=== PATIENT | female | born 1930 | race Hispanic/Latino ===

== ENCOUNTER 2017-11-16 11:48 | Emergency (ER) | payer MEDICARE, OTHER ==
--- NOTE | 2017-11-16 14:07 | CT ---
CT BRAIN: Date: 11/16/17 PROVIDED CLINICAL HISTORY: Head pain status post injury. FINDINGS: Comparison with 12/17/14. The ventricular system appears within normal limits for patient's age. There is no evidence for intra cranial hemorrhage. There is no shift of the midline structures. Minimal chronic microvascular ischem ic changes are seen. The extracranial soft tissues and osseous structures demonstrate no acute abnorm ality. IMPRESSION: No evidence for intracranial hemorrhage or skull fracture. POS: [facility]
--- NOTE | 2017-11-16 14:21 | CT ---
CT CERVICAL SPINE: Date: 11/16/17 PROVIDED CLINICAL HISTORY: Neck pain status post injury. FINDINGS: No evidence for fracture or traumatic subluxation. Degenerative changes are seen. No prevertebral sof t tissue swelling apparent. Visualized lung apices appear clear. IMPRESSION: No evidence for fracture or traumatic subluxation. POS: [facility]
[2017-11-16] MEDS ORDERED: Cyclobenzaprine 10 MG TAB ONE (14:24)
--- NOTE | 2017-11-16 14:28 | CT ---
CT THORACIC SPINE: Date: 11/16/17 PROVIDED CLINICAL HISTORY: Back pain status post injury. FINDINGS: Thoracic alignment appears normal. There are age-indeterminate but remote-appearing fractures involvi ng the superior end plate of T7 and T8, as well as the inferior end plate of T10. No definite prevert ebral soft tissue swelling suggests these represent acute injuries. The bony spinal canal appears pre served. Multilevel degenerative changes are seen involving the thoracic spine. IMPRESSION: Age-indeterminate, but probably remote, compression deformities involving several thoracic vertebral bodies as above. POS: [facility]
--- NOTE | 2017-11-16 14:30 | CT ---
CT LUMBAR SPINE: Date: 11/16/17 PROVIDED CLINICAL HISTORY: Back pain status post injury. FINDINGS: Lumbar alignment appears normal. There is remote-appearing superior end plate compression deformity i nvolving L4 and to a lesser extent L2. Lumbar spine degenerative changes are seen. Vascular calcifica tions are seen. No lytic or blastic lesions are identified. IMPRESSION: Remote-appearing superior end plate compression deformities at L4 and L2. POS: [facility]
== END 2017-11-16 14:34 | disposition home or self-care (01) ==
LOC: ERS 11:48
DX: S16.1XXA Strain of muscle, fascia and tendon at neck level, initial encounter (principal); M54.5 Low back pain; I10 Essential (primary) hypertension; E78.00 Pure hypercholesterolemia, unspecified; Z79.82 Long term (current) use of aspirin; Z79.899 Other long term (current) drug therapy; W19.XXXA Unspecified fall, initial encounter; Y93.41 Activity, dancing
CPT/HCPCS: 70450; 72125; 72128; 72131

== ENCOUNTER 2017-11-17 12:19 | Emergency (ER) | payer MEDICARE, OTHER ==
--- NOTE | 2017-11-17 13:49 | CT ---
NONCONTRAST CT ABDOMEN AND PELVIS: 11/17/2017 HISTORY: Left hip pain after fall while dancing. Pain is now worse. COMPARISON: 08/09/2015 FINDINGS: There is tiny pericardial effusion versus pericardial thickening present. There are increased linear and interstitial densities present at the left lung base, which could be r elated to atelectasis and/or scarring. There is minimal patchy density at the left lung base, which could be related to a focal area of pneumonitis or atelectasis. Vascular calcifications are seen in the visualized coronary arteries, as well as involving the abdomi nal aorta and iliac arteries. Post cholecystectomy changes are noted. A calcified granuloma is seen in the liver. There is minimal peripheral calcification seen along the splenic capsule, at the lateral body of the uterus. This was also present on the prior exam. There is mild thickening of each adrenal gland, similar to the prior exam. No discrete measurable no dule is present. There is a subcentimeter, qvx-[id number]-pd-characterize hypodense lesion in the mid portion right kidney with a subcentimeter increased density lesion at the inferior pole left kidney, which may represent a Bosniak type 2 cystic renal lesion. No renal or ureteral calculi are seen bilaterally, and there is no hydronephrosis. A small hiatal hernia is present. There is colonic diverticulosis. No other interval change when compared to the prior exam. There is a remote fracture deformity involving the right pubic bone and right inferior pubic ramus. The urinary bladder and uterus demonstrate a grossly normal nonenhanced CT appearance. IMPRESSION: 1. Chronic bibasilar lung changes with a patchy area of atelectasis versus pneumonitis at the left l luli base. 2. Small hiatal hernia. 3. Tiny pericardial effusion. 4. Bosniak type 2 renal cystic lesion, inferior pole, left kidney, with a subcentimeter, too-small-t o-characterize hypodense lesion in the right kidney. 5. Post cholecystectomy changes. 6. Colonic diverticulosis. 7. Remote fracture deformity involving the right pubic bone and inferior pubic ramus. 8. Mild compression fractures along the superior endplate of the L2 and L4 vertebral bodies, better visualized on CT lumbar spine on 11/16/2017. POS: [facility]
[2017-11-17 14:11] LABS: Bilirubin Negative (Negative); Blood, Urine Large (Negative); Clarity CLOUDY (Clear); Glucose, Urine (Dipstick) Negative (Negative); Leukocyte Moderate (Negative); Nitrite Negative (Negative); Protein, Urine (Dipstick) Trace mg/dL (Neg-Trace); Specific Gravity, Urine 1.016 (1.002-1.036); Urobilinogen 0.2 mg/dL (0.2-1.0)
[2017-11-17 14:15] LABS: Bacteria/HPF 4+ HPF (None Seen); Hyaline Casts/LPF 0-3 HYALINE CAST LPF (0-3 Hyaline); Pathc Cast-AUWi Flag 0.43 (0-2.49); RBC/HPF 21-50 HPF (0-3); Squamous Epithelial 0-3 HPF (0-3); WBC/HPF 21-50 HPF (0-3)
[2017-11-17 14:20] LABS: #Eosinphils 0.1 thou/uL (0.0-0.7); #Lymphocytes 1.3 thou/uL (1.20-3.40); #Monocytes 0.7 thou/uL (0.11-0.59); #Neutrophils 8.5 thou/uL (1.40-6.50); %Basophils 0.3 % (0.0-1.0); %Eosinophils 0.7 % (0.0-10.0); %Lymphocytes 12.6 % (21.0-51.0); %Monocytes 6.9 % (0.0-10.0); %Neutrophils 79.5 % (42.0-75.0); Hemoglobin 12.1 g/dL (12.0-16.0); Mean Corpuscular HGB CONC 33.6 g/dL (32.0-36.0); Mean Corpuscular Hemoglobin 33.4 pg (27.0-31.0); Mean Corpuscular Volume 99.3 fl (81.0-99.0); Mean Platelet Volume 7.4 fL (7.4-10.4); Platelet Count 240 thou/uL (130-400); Red Blood Cell (RBC) Count 3.61 mill/uL (4.20-5.40); White Blood Cell (WBC) Count 10.6 thou/uL (4.8-10.8)
[2017-11-17 14:40] LABS: ALT (SGPT) 15 U/L (8-55); AST (SGOT) 18 U/L (5-34); Albumin 4.1 g/dL (3.4-4.8); Alkaline Phosphatase 62 U/L (40-150); Anion Gap 6 mmol/L (10-20); BUN (Urea Nitrogen) 10 mg/dL (9.8-20.1); Bilirubin, Total 0.8 mg/dL (0.2-1.2); Calc. Creatinine Clearance 0 mL/min (70-130); Calcium 11.5 mg/dL (7.8-10.44); Carbon Dioxide 29 mmol/L (23-31); Chloride 108 mmol/L (98-107); Estimated GFR-MDRD 79; Globulin 2.9 g/dL (2.4-3.5); Glucose 93 mg/dL (83-110); Lipase 7 U/L (8-78); Potassium 3.3 mmol/L (3.5-5.1); Sodium 140 mmol/L (136-145)
[2017-11-17 14:46] LABS: CKMB 0.6 ng/mL (0-6.6); Troponin I Less than 0.010 ng/mL (< 0.028)
--- NOTE | 2017-11-17 14:57 | RAD ---
AP PELVIS: Date: 11/17/17 HISTORY: Fall, left-sided hip pain. FINDINGS/IMPRESSION: Comparison made with exam of 02/10/17. Fractures of the right-sided pubic bone are again seen. There is a new fracture involving the left pu bic bone in the parasymphyseal region with extension into the medial aspect of the superior pubic elton us. POS: [facility]
[2017-11-17] MEDS ORDERED: cefTRIAXone\\ROCEPHIN 2 GM in Sodium Chloride 0.9% 100 ML IVPB SCH (15:15)
[2017-11-17] MEDS ORDERED: Ketorolac Tromethamine 30 MG/ML VIAL ONE (15:20)
[2017-11-17] MEDS ORDERED: Acetaminophen 500 MG TAB ONE (15:20)
--- NOTE | 2017-11-29 22:58 | EKG ---
Test Reason : Blood Pressure : / mmHG Vent. Rate : 073 BPM Atrial Rate : 073 BPM P-R Int : 140 ms QRS Dur : 086 ms QT Int : 394 ms P-R-T Axes : 080 013 058 degrees QTc Int : 434 ms Normal sinus rhythm Nonspecific T wave abnormality Abnormal ECG Confirmed by MARITA KO, MARCIANO ([id number]), newspaper or periodical editor VALERI HUSSEIN ([id number]) on 11/29/2017 10:57:59 PM Referred By: Confirmed By:MARCIANO KIRKLAND MD
== END 2017-11-17 23:12 ==
LOC: ERS 12:19
DX: S32.512A Fracture of superior rim of left pubis, initial encounter for closed fracture (principal); I10 Essential (primary) hypertension; E78.00 Pure hypercholesterolemia, unspecified; Z79.82 Long term (current) use of aspirin; Z79.899 Other long term (current) drug therapy; W19.XXXA Unspecified fall, initial encounter; Y93.41 Activity, dancing
CPT/HCPCS: 36415; 72170; 74176; 80053; 81003; 81015; 82553; 83605; 83690; 84484; 85025; 93005; 96365; 96366; 96375; J0696; J1885; J7050

== ENCOUNTER 2018-02-02 13:15 | Emergency (ER) | payer MEDICARE, OTHER ==
[2018-02-02 14:28] LABS: #Basophils 0.1 thou/uL (0.0-0.2); #Lymphocytes 1.2 thou/uL (1.20-3.40); #Monocytes 0.4 thou/uL (0.11-0.59); %Basophils 0.6 % (0.0-1.0); %Eosinophils 0.4 % (0.0-10.0); %Lymphocytes 12.1 % (21.0-51.0); %Monocytes 4.5 % (0.0-10.0); %Neutrophils 82.4 % (42.0-75.0); Hemoglobin 12.9 g/dL (12.0-16.0); Mean Corpuscular Volume 97.1 fl (81.0-99.0); Mean Platelet Volume 7.5 fL (7.4-10.4); Platelet Count 301 thou/uL (130-400); RBC Distribution Width 11.5 % (11.5-14.5); Red Blood Cell (RBC) Count 3.92 mill/uL (4.20-5.40); White Blood Cell (WBC) Count 9.7 thou/uL (4.8-10.8)
[2018-02-02 14:31] LABS: Bilirubin Negative (Negative); Blood, Urine Large (Negative); Clarity CLOUDY (Clear); Glucose, Urine (Dipstick) Negative (Negative); Leukocyte Moderate (Negative); Nitrite Negative (Negative); Protein, Urine (Dipstick) 30 mg/dL (Neg-Trace); Specific Gravity, Urine 1.013 (1.002-1.036); Urobilinogen 0.2 mg/dL (0.2-1.0)
[2018-02-02 14:41] LABS: Bacteria/HPF 4+ HPF (None Seen); Hyaline Casts/LPF 7-10 HYALINE CAST LPF (0-3 Hyaline); Pathc Cast-AUWi Flag 0.87 (0-2.49); Squamous Epithelial 0-3 HPF (0-3); WBC/HPF 21-50 HPF (0-3)
[2018-02-02 14:49] LABS: ALT (SGPT) 17 U/L (8-55); AST (SGOT) 18 U/L (5-34); Albumin 4.6 g/dL (3.4-4.8); Alkaline Phosphatase 93 U/L (40-150); Anion Gap 10 mmol/L (10-20); BUN (Urea Nitrogen) 9 mg/dL (9.8-20.1); Bilirubin, Total 0.4 mg/dL (0.2-1.2); CK (CPK) 25 U/L (29-168); Calc. Creatinine Clearance 0 mL/min (70-130); Calcium 11.4 mg/dL (7.8-10.44); Carbon Dioxide 31 mmol/L (23-31); Chloride 99 mmol/L (98-107); Estimated GFR-MDRD 76; Globulin 3.1 g/dL (2.4-3.5); Glucose 90 mg/dL (83-110); Magnesium 1.6 mg/dL (1.6-2.6); Potassium 3.1 mmol/L (3.5-5.1); Protein, Total 7.7 g/dL (6.0-8.3); Sodium 137 mmol/L (136-145)
[2018-02-02 14:50] LABS: CKMB 0.5 ng/mL (0-6.6); Troponin I Less than 0.010 ng/mL (< 0.028)
--- NOTE | 2018-02-02 15:05 | RAD ---
PORTABLE AP CHEST RADIOGRAPH: Date: 02-02-18 History: Nausea and vomiting for three days. Comparison: 01-01-17 FINDINGS: Cardiac silhouette is magnified by projection. Pulmonary vasculature is within normal limits. There i s a linear density seen in the retrocardiac region of the left lung base which may be related to atel ectasis or scarring. Lungs otherwise appear clear. Vascular calcifications are seen in the thoracic a ree. There has been no significant interval change compared to the prior exam. IMPRESSION: 1. No acute cardiopulmonary process. 2. Atelectasis versus scarring left lung base. POS: [facility]
[2018-02-02] MEDS ORDERED: Lidocaine 1% PF 5 ML VIAL ONE (15:48)
[2018-02-02] MEDS ORDERED: cefTRIAXone\\ROCEPHIN 2 GM VIAL ONE (15:48)
== END 2018-02-02 16:10 | disposition home or self-care (01) ==
LOC: ERS 13:15
DX: N39.0 Urinary tract infection, site not specified (principal); E78.00 Pure hypercholesterolemia, unspecified; I12.9 Hypertensive chronic kidney disease with stage 1 through stage 4 chronic kidney disease, or unspecified chronic kidney disease; N18.3 Chronic kidney disease, stage 3 (moderate); F41.9 Anxiety disorder, unspecified; G30.9 Alzheimer's disease, unspecified; F02.80 Dementia in other diseases classified elsewhere, unspecified severity, without behavioral disturbance, psychotic disturbance, mood disturbance, and anxiety; Z79.82 Long term (current) use of aspirin; Z79.899 Other long term (current) drug therapy
CPT/HCPCS: 36415; 71045; 80053; 81003; 81015; 82553; 83690; 83735; 83880; 84484; 85025; 87077; 87086; 87186; 93005; 96372; J0696; J2001

== ENCOUNTER 2018-02-04 17:09 | Emergency (ER) | payer MEDICARE, OTHER ==
[2018-02-04 17:54] LABS: #Basophils 0.1 thou/uL (0.0-0.2); #Eosinphils 0.1 thou/uL (0.0-0.7); #Lymphocytes 1.9 thou/uL (1.20-3.40); #Monocytes 0.5 thou/uL (0.11-0.59); #Neutrophils 5.4 thou/uL (1.40-6.50); %Basophils 0.9 % (0.0-1.0); %Eosinophils 1.2 % (0.0-10.0); %Lymphocytes 23.3 % (21.0-51.0); %Monocytes 6.5 % (0.0-10.0); %Neutrophils 68.1 % (42.0-75.0); Hemoglobin 12.6 g/dL (12.0-16.0); Mean Corpuscular HGB CONC 33.7 g/dL (32.0-36.0); Mean Corpuscular Hemoglobin 32.8 pg (27.0-31.0); Mean Corpuscular Volume 97.2 fl (81.0-99.0); Mean Platelet Volume 7.3 fL (7.4-10.4); Platelet Count 278 thou/uL (130-400); RBC Distribution Width 11.6 % (11.5-14.5); Red Blood Cell (RBC) Count 3.83 mill/uL (4.20-5.40); White Blood Cell (WBC) Count 7.9 thou/uL (4.8-10.8)
[2018-02-04 18:21] LABS: ALT (SGPT) 16 U/L (8-55); AST (SGOT) 15 U/L (5-34); Albumin 4.3 g/dL (3.4-4.8); Alkaline Phosphatase 85 U/L (40-150); Anion Gap 10 mmol/L (10-20); BUN (Urea Nitrogen) 10 mg/dL (9.8-20.1); Bilirubin, Total 0.4 mg/dL (0.2-1.2); CKMB 0.4 ng/mL (0-6.6); Calc. Creatinine Clearance 0 mL/min (70-130); Calcium 10.9 mg/dL (7.8-10.44); Carbon Dioxide 27 mmol/L (23-31); Chloride 103 mmol/L (98-107); Estimated GFR-MDRD 79; Globulin 2.8 g/dL (2.4-3.5); Glucose 109 mg/dL (83-110); Protein, Total 7.1 g/dL (6.0-8.3); Sodium 137 mmol/L (136-145); Troponin I Less than 0.010 ng/mL (< 0.028)
--- NOTE | 2018-02-04 18:24 | RAD ---
PORTABLE CHEST: 02/04/18 HISTORY: Vomiting. COMPARISON: 02/02/18 FINDINGS/IMPRESSION: Heart size is upper normal and stable. Mild vascular and interstitial prominence suggests mild conges tion, similar to the prior exam. There is evidence of some atelectasis in the left lung base which al so appears stable. No significant change from 02/02/18. POS: [facility]
[2018-02-04 18:34] LABS: Potassium 2.8 mmol/L (3.5-5.1)
[2018-02-04] MEDS ORDERED: Potassium Chloride 40 MEQ in Sodium Chloride 0.9% 250 ML 250 ML IVPB SCH (19:15)
--- NOTE | 2018-02-04 19:36 | CT ---
CT ABDOMEN AND PELVIS WITHOUT CONTRAST: 02/04/18 Multiple axial tomograms obtained through the abdomen and pelvis without IV enhancement. INDICATIONS: Nausea, vomiting, abdominal pain. Comparison made to CT abdomen and pelvis 11/17/17. Lung bases clear. Calcified granuloma in the left lung base is noted. Pericardial thickening or tiny pericardial effusion was described previously. This is unchanged. A low density lesion in the left lobe of the liver is stable possibly a small cyst. The liver, spleen and pancreas unremarkable. 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 Kidneys show no evidence of hydronephrosis. There is a hyperdense lesion off the inferior left kidney which is complex measuring 1.0 cm, unchanged from recent exam. There is a nonobstructing calculus in the lower pole collecting structures of the left kidney measuring 3 mm. A faint low density lesion s uperior right kidney is unchanged possibly representing cyst but not adequately characterized on this exam. Small bowel loops are normal caliber. Stool seen throughout the colon. The amount of stool suggests c hronic constipation. There is diverticulosis of the left colon and sigmoid. No definite CT evidence o f diverticulitis. Urinary bladder is mildly distended and appears unremarkable. Aorta is normal calib er. Review of the osseous structures shows progression of a compression deformity involving the L2 verteb ra when compared to the prior exam of 11/17/17. There has been continued loss of central and anterior height at this vertebra when compared to the prior study. The other vertebrae show no interval change . Review of the pelvis reveals healing fractures involving the left pubic bone at the pubic symphysis a nd at the left superior pubic ramus. There is also a healing fracture involving the left inferior elton us. Fracture lines are present at both of these sites with surrounding callus at both of these sites. There is deformity of the right hemipelvis involving the right pubic bone and right inferior ramus wh ich is stable from the prior exam. IMPRESSION: 1. Progression of a compression deformity at L2 since prior exam. 2. Fractures of the left hemipelvis are present with surrounding callus indicating subacute frac tures with interval healing. 3. Complex hyperdense lesion off the inferior pole left kidney is again noted and stable. Nonobs tructing calculus inferior collecting structures left kidney is noted. 4. Hypodense liver lesion is stable. 5. Pericardial thickening and/or a small amount of pericardial fluid is stable from prior exam. 6. Small sliding diaphragmatic hernia again noted. 7. Prominent stool throughout the colon suggests chronic constipation. There is diverticulosis w ithout definite CT evidence of diverticulitis. POS: [facility]
[2018-02-04 19:45] LABS: Bilirubin Negative (Negative); Blood, Urine Moderate (Negative); Clarity CLOUDY (Clear); Glucose, Urine (Dipstick) Negative (Negative); Leukocyte Small (Negative); Nitrite Negative (Negative); Protein, Urine (Dipstick) Trace mg/dL (Neg-Trace); Specific Gravity, Urine 1.014 (1.002-1.036); Urobilinogen 0.2 mg/dL (0.2-1.0)
[2018-02-04 19:48] LABS: Bacteria/HPF None Seen HPF (None Seen); Hyaline Casts/LPF 4-6 HYALINE CAST LPF (0-3 Hyaline); Pathc Cast-AUWi Flag 0.58 (0-2.49)
[2018-02-04] MEDS ORDERED: Potassium Chloride 20 MEQ TAB ONE (21:10)
== END 2018-02-04 23:10 | disposition home or self-care (01) ==
LOC: ERS 17:09
DX: R11.2 Nausea with vomiting, unspecified (principal); R10.31 Right lower quadrant pain; R10.13 Epigastric pain; I12.9 Hypertensive chronic kidney disease with stage 1 through stage 4 chronic kidney disease, or unspecified chronic kidney disease; N18.3 Chronic kidney disease, stage 3 (moderate); E78.00 Pure hypercholesterolemia, unspecified; F41.9 Anxiety disorder, unspecified; G30.9 Alzheimer's disease, unspecified; F02.80 Dementia in other diseases classified elsewhere, unspecified severity, without behavioral disturbance, psychotic disturbance, mood disturbance, and anxiety; Z79.899 Other long term (current) drug therapy; Z79.82 Long term (current) use of aspirin
CPT/HCPCS: 36415; 71045; 74176; 80053; 81003; 81015; 82553; 84484; 85025; 93005; 96361; 96365; 96366; J3480; J7050

== ENCOUNTER 2018-05-13 20:09 | Inpatient (IN) | payer MEDICARE, OTHER ==
[2018-05-13 21:25] LABS: #Basophils 0.1 thou/uL (0.0-0.2); #Eosinphils 0.1 thou/uL (0.0-0.7); #Lymphocytes 1.8 thou/uL (1.20-3.40); #Monocytes 0.5 thou/uL (0.11-0.59); %Basophils 0.5 % (0.0-1.0); %Eosinophils 1.4 % (0.0-10.0); %Lymphocytes 17.1 % (21.0-51.0); %Monocytes 4.7 % (0.0-10.0); %Neutrophils 76.3 % (42.0-75.0); Hemoglobin 12.3 g/dL (12.0-16.0); Mean Corpuscular HGB CONC 33.6 g/dL (32.0-36.0); Mean Corpuscular Hemoglobin 32.7 pg (27.0-31.0); Mean Corpuscular Volume 97.4 fL (78.0-98.0); Mean Platelet Volume 7.9 fL (7.4-10.4); Platelet Count 324 thou/uL (130-400); RBC Distribution Width 11.7 % (11.5-14.5); Red Blood Cell (RBC) Count 3.75 mill/uL (4.20-5.40); White Blood Cell (WBC) Count 10.5 thou/uL (4.8-10.8)
--- NOTE | 2018-05-13 21:25 | RAD ---
THREE VIEWS RIGHT SHOULDER: 05/13/18 HISTORY: Right shoulder pain after fall at home. AP internally, externally, and scapular Y-views of the right shoulder is obtained. Three views right shoulder demonstrate no evidence of right shoulder fractures, subluxations or bony lesions. IMPRESSION: Normal three views right shoulder. POS: [facility]
--- NOTE | 2018-05-13 21:32 | RAD ---
HISTORY: Fall. AP VIEW PELVIS 05/13/18 Comparison is made to previous exam from 01/16/18. AP view pelvis demonstrates old healed fractures in the right and left pubic ramus and pubic bones. There is an acute fracture involving the base of the right femoral neck extending into the greater tr ochanter. IMPRESSION: Acute proximal right femoral neck and trochanteric fracture. POS: [facility]
--- NOTE | 2018-05-13 21:33 | RAD ---
AP AND LATERAL VIEWS RIGHT FEMUR 05/13/18 HISTORY: Fall. Two views right femur demonstrates again fracture in the right femoral neck extending to the greater trochanter. The rest of the right femur is unremarkable. IMPRESSION: Proximal acute right femoral fracture. POS: [facility]
[2018-05-13 21:34] LABS: Prothrombin Time 12.8 SEC (12.0-14.7)
--- NOTE | 2018-05-13 21:34 | RAD ---
FOUR VIEWS RIGHT ELBOW: 05/13/18 HISTORY: Fall. AP, lateral, and both oblique views right elbow is obtained. Four views right elbow demonstrates no evidence of a right elbow fractures, subluxations, or bony les ions. IMPRESSION: Normal four views right elbow. POS: [facility]
[2018-05-13 21:35] LABS: PTT 22.8 SEC (22.9-36.1)
--- NOTE | 2018-05-13 21:38 | RAD ---
AP VIEW CHEST: 05/13/18 HISTORY: Preoperative chest radiograph. AP view chest is obtained. There is some ectasia and calcification of the aorta. The lungs are well aerated. No evidence of acut e intrathoracic abnormality seen. No evidence of effusions, pneumonia or pneumothorax seen. IMPRESSION: Unremarkable AP view chest. POS: [facility]
[2018-05-13 21:56] LABS: ALT (SGPT) 15 U/L (8-55); AST (SGOT) 22 U/L (5-34); Albumin 4.1 g/dL (3.4-4.8); Alkaline Phosphatase 86 U/L (40-150); Anion Gap 9 mmol/L (10-20); BUN (Urea Nitrogen) 13 mg/dL (9.8-20.1); Bilirubin, Total 0.4 mg/dL (0.2-1.2); Calc. Creatinine Clearance 0 mL/min (70-130); Calcium 11.8 mg/dL (7.8-10.44); Carbon Dioxide 30 mmol/L (23-31); Chloride 105 mmol/L (98-107); Estimated GFR-MDRD 68; Globulin 3.1 g/dL (2.4-3.5); Glucose 107 mg/dL (83-110); Potassium 3.7 mmol/L (3.5-5.1); Protein, Total 7.2 g/dL (6.0-8.3); Sodium 140 mmol/L (136-145)
[2018-05-13 22:01] LABS: CKMB 0.5 ng/mL (0-6.6); Troponin I Less than 0.010 ng/mL (< 0.028)
[2018-05-13] MEDS ORDERED: Ondansetron HCl/PF 4 MG/2 ML Vial ONE (22:47)
[2018-05-13] MEDS ORDERED: HYDROcodone/Acetaminophen 5/325 mg Tablet PO PRN (22:54)
[2018-05-13] MEDS ORDERED: RENALLY ADJUST ALL ANTIBIOTICS FS PRN (23:00)
[2018-05-13] MEDS ORDERED: traMADol HCl 50 MG TAB PO PRN (23:04)
[2018-05-13] MEDS ORDERED: Amlodipine 5 mg/Benazepril 10 mg CAP PO SCH (23:45)
[2018-05-14 01:55] VITALS: BMI 17.8
[2018-05-14 01:58] LABS: Bilirubin Negative (Negative); Blood, Urine Moderate (Negative); Clarity CLOUDY (Clear); Glucose, Urine (Dipstick) Negative (Negative); Leukocyte Moderate (Negative); Nitrite Negative (Negative); Protein, Urine (Dipstick) Negative (Neg-Trace); Specific Gravity, Urine 1.011 (1.002-1.036); Urobilinogen 0.2 mg/dL (0.2-1.0)
[2018-05-14 02:01] LABS: Bacteria/HPF 1+ HPF (None Seen); Hyaline Casts/LPF 7-10 HYALINE CAST LPF (0-3 Hyaline); Pathc Cast-AUWi Flag 1.45 (0-2.49)
[2018-05-14 02:12] LABS: Renal Epithelial None Seen HPF (0-3); Transitional Epithelial NONE SEEN HPF (0-3)
[2018-05-14] MEDS: Sodium Chloride 0.9% 100 ML IV SCH ×2 (02:49)
[2018-05-14] MEDS: Sodium Chloride 0.9% 1,000 ML IV SCH ×2 (03:40→22:23)
--- NOTE | 2018-05-14 05:14 | HP ---
DATE OF SERVICE: 05/13/2018 Referred by tamara Medina in the emergency department. TRAUMA ATTENDING: Dr. Skip Guo. CONSULTING ORTHOPEDIST: Dr. Cesar. REASON FOR ADMISSION: Right femoral neck fracture, status post fall. HISTORY OF PRESENT ILLNESS: Ms. Case is an 87-year-old female with a past medical history of hyperte nsion, hyperlipidemia, frequent UTIs and multiple falls, who lives at home with her , normally gets about on her own accord who was brought in by EMS today, status post mechanical fall with a chi ef complaint of right shoulder and right hip pain. In the emergency department, her right hip was no yanely to be shortened and externally rotated right femur and pelvis x-ray demonstrates a femoral neck f racture. Chest x-ray was negative. Right elbow and right shoulder x-rays were negative for bony abn ormalities. The patient has been hemodynamically stable, only complaint is right hip pain and trauma was consulted for admission. Upon arrival to the emergency department, the patient was interviewed via an mixing and molding machine operator and she has received a total of 4 mg of morphine and states that she is in extreme pain. Only complaint is pain in her groin and her right hip. She denies any chest pain, denies shortness of breath, denies syncop e. States that she tripped in her driveway and she was found nearly immediately by her neighbor. Ag ain, EMS was called and she was brought in. No recent illness, no nausea, no vomiting. She is in a brief, I have reviewed the imaging, laboratory data, and emergency department treatment. REVIEW OF SYSTEMS: Pertinent positive and negative per the HPI, otherwise regarded as negative in 12 -point review of systems. PAST MEDICAL HISTORY: 1. Hypertension. 2. Hyperlipidemia. 3. Frequent UTIs. 4. Frequent falls. PAST SURGICAL HISTORY: Appendectomy. ALLERGIES: CODEINE and IODINE, chart review says SULFA and she has nausea to multiple medications. However, she is tolerating morphine well in the emergency department. FAMILY HISTORY: Noncontributory. An 87-year-old female with mechanical fall. SOCIAL HISTORY: The patient lives at home with her . Denies alcohol, tobacco, or any drug us e. She normally gets about on her own; however, she has been recommended a walker in the past. PHYSICAL EXAMINATION: VITAL SIGNS: Blood pressure is 171/89, temperature is 97.5, heart rate is 60, respiratory rate is 18 . She is 96% on room air. GENERAL: This is an 87-year-old female in slight distress secondary to pain, but nontoxic appearing. HEENT: Normocephalic, atraumatic. Trachea is midline. NECK: No JVD is appreciated. RESPIRATORY: Equal rise and fall. Bilateral breath sounds are clear to auscultation upper and lower bilaterally. CARDIOVASCULAR: Regular rate and rhythm. No murmurs are appreciated. Strong pulses in all extremit ies with no edema. ABDOMEN: Soft. No peritoneal signs. Does have slight tenderness in the suprapubic region and denie s dysuria. PELVIS: Pain to palpation of the right side. EXTREMITIES: Upper extremities: Some tenderness to palpation to the right shoulder. She has full r antoinette of motion of the elbow and full passive range of motion of the shoulder, however, does elicit so me pain. She does have strong sensation noted distally as well as motor and circulation in the right upper extremity. Right lower extremity is shortened and externally rotated. She does have feeling and circulation noted with strong pulses. She has pulses in all other extremities. NEUROLOGIC: Patient is alert and oriented to person, place, time, and event. No gross deficits are appreciated. SKIN: Boyd, warm, and dry. PSYCHIATRIC: Normal mood and affect. DIAGNOSTIC DATA: Chest x-ray: Shows skin folds on the right, otherwise is clear. Right femur x-ray shows a femoral neck fracture. Pelvic x-ray shows femoral neck fracture. Right shoulder x-ray is n egative per Radiology. Right elbow x-ray negative per Radiology, noted an IV catheter only. EKG was obtained in the emergency department. LABORATORY DATA: Today shows white blood cell count of 10.5, platelets of 324,000, hemoglobin and he matocrit 12.3 and 36.5 respectively. Coags: PT is 12.8, INR is 1.0 and a PTT of 22.8. Sodium is 14 0, potassium 3.7, chloride is 105, CO2 is 30, BUN is 13, creatinine 0.8, glucose 107. Initial tropon in 0.01 and CK 0.5. ASSESSMENT AND PLAN: 1. Acute right femoral neck fracture. 2. Acute traumatic pain. 3. Hypertension. 4. History of hyperlipidemia. PLAN: 1. Dr. Cesar with Orthopedic Surgery has been consulted. We appreciate recommendations. 2. Admit to the surgical carballo. 3. Additional 2 mg of morphine now along with 4 mg of Zofran for pain control. 4. Start oral pain medications trying to limit opioids. 5. N.p.o. now for surgical intervention. 6. Repeat CBC in the morning. 7. Obtain UA. We will reflex. This patient does have strong smelling urine and history of UTIs. 8. PT, OT evaluation, post-surgery. 9. Diet will be n.p.o. 10. Access: Peripheral IVs. 11. Full code. 12. Activity: Bed rest. 13. Prophylaxis. Aspirin b.i.d., Pepcid, SCD. 14. Bowel regimen will be in place. 15. Disposition: Surgical carballo. I have updated the patient at the bedside, there was some difficulty with the garment liner, but all que stions were answered at the end of our visit. There is no family at the bedside to update. I will c oordinate care with the emergency department staff and this plan can be updated as needed.
[2018-05-14 05:30] LABS: #Monocytes 0.8 thou/uL (0.11-0.59); #Neutrophils 10.2 thou/uL (1.40-6.50); %Basophils 0.2 % (0.0-1.0); %Eosinophils 0.1 % (0.0-10.0); %Lymphocytes 8.5 % (21.0-51.0); %Monocytes 6.7 % (0.0-10.0); %Neutrophils 84.5 % (42.0-75.0); Mean Corpuscular HGB CONC 33.8 g/dL (32.0-36.0); Mean Corpuscular Hemoglobin 32.7 pg (27.0-31.0); Mean Corpuscular Volume 96.8 fL (78.0-98.0); Platelet Count 272 thou/uL (130-400); RBC Distribution Width 11.7 % (11.5-14.5); Red Blood Cell (RBC) Count 3.35 mill/uL (4.20-5.40)
[2018-05-14] MEDS: Ketorolac Tromethamine 30 MG/ML VIAL IVP SCH ×3 (06:10→21:58)
[2018-05-14] MEDS: traMADol HCl 50 MG TAB PO SCH ×4 (06:27→19:29)
[2018-05-14] MEDS: Acetaminophen 325 MG TAB PO SCH ×4 (06:27→19:29)
[2018-05-14] MEDS ORDERED: CEFAZOLIN/Water 2 GM/20 ML SYRINGE SLOW IVP SCH (08:15)
[2018-05-14] MEDS ORDERED: Famotidine 20 MG TAB PO SCH (09:00)
[2018-05-14] MEDS: CEFAZOLIN 1 GM in Sodium Chloride 0.9% 100 ML IVPB SCH ×2 (09:43→18:46)
[2018-05-14] MEDS ORDERED: ePHEDrine/0.9% NaCl/PF SYRINGE 50 mg/10 ml ONE (10:33)
[2018-05-14] MEDS ORDERED: PROPOFOL 200 MG/20 ML VIAL ONE (10:33)
[2018-05-14] MEDS ORDERED: Ondansetron HCl/PF 4 MG/2 ML Vial ONE (10:33)
[2018-05-14] MEDS ORDERED: Glycopyrrolate 0.2 MG/ML 5 ML SYRINGE ONE (10:33)
[2018-05-14] MEDS ORDERED: Acetaminophen 1,000 MG in Premix Bag 1 BAG IVPB SCH (11:00)
--- NOTE | 2018-05-14 12:26 | PQF ---
DATE: 05-14-18 STEVE BARRERA / DR. CUI Please exercise your independent, professional judgment in responding to the clarification form. Clinical indicators are provided on the bottom of this form for your review Please check appropriate box(s): [ x ] UTI [ ] Contaminated urine specimen without UTI [ ] Other diagnosis [ ] Unable to determine In addition, please specify: Present on Admission (POA): [ ] Yes [ ] No [ ] Unable to determine For continuity of documentation, please document condition throughout progress notes and discharge summary. Thank You. CLINICAL INDICATORS - SIGNS / SYMPTOMS / LABS URINE: 05-14-18: URINE BLOOD: MODERATE H UR LEUKOCYTE ESTERASE: MODERATE H URINE RBC: 7-10 H URINE WBC: 11-20 H UR SQUAMOUS EPITH CELLS: 7-10 H URINE BACTERIA: 1+ H H&P: HX OF FREQ UTI'S RISK FACTORS: H&P: HX OF FREQ UTI'S WITH STRONG SMELLING URINE TREATMENT: OBTAIN UA. WE WILL REFLEX. MAR: ANCEF IV, IVF (This form is maintained as a part of the permanent medical record) 2014 [employer]. All Rights Reserved STEFANI [email or web address] Office: [phone] [facility]ITAL[facility]ays[facility]
--- NOTE | 2018-05-14 13:14 | HP ---
CHIEF COMPLAINT: Right hip pain. HISTORY OF PRESENT ILLNESS: Ms. Case is an 87-year-old female who fell yesterday. She landed on her right side. She had immediate pain. She was unable to ambulate. She was found to have shortening and an x-ray demonstrated an intertrochanteric femur fracture. She has been admitted to the hospital . She is currently comfortable. I am interviewing her with a toll transmission worker today. No other injuries a t this point have been identified. REVIEW OF SYSTEMS: Negative except for right hip pain. PAST MEDICAL HISTORY: Hypertension, hyperlipidemia, history of urinary tract infection. PAST SURGICAL HISTORY: Appendectomy. ALLERGIES: CODEINE, IODINE. Otherwise, negative. FAMILY MEDICAL HISTORY: Noncontributory. SOCIAL HISTORY: The patient lives with her . He will be available later today. No alcohol, tobacco or drug use. IMAGING DATA: X-rays of the right hip demonstrate an intertrochanteric femur fracture with displacem ent. There is varus alignment. PHYSICAL EXAMINATION: VITAL SIGNS: Temperature is 98, pulse is 76, respiratory rate is 15, oxygen saturation 96, blood pre ssure 148/72. GENERAL: She is alert and oriented, no apparent distress. RESPIRATORY: Breathing comfortably. ABDOMEN: Soft, nontender, nondistended. MUSCULOSKELETAL: The patient's right lower extremity has shortening and external rotation. She has pain with motion. She has intact neurovascular status distally. Palpable dorsalis pedis pulse. She has pain with hip motion. IMPRESSION: Right intertrochanteric femur fracture in an elderly female. PLAN: At this point, the patient will need to go to the operating room for intramedullary nail fixat ion of the right proximal femur. She is aware of risks and benefits. Goal of surgery is to promote mobilization and prevent complications of prolonged bed rest. She is at elevated risk of complicatio ns with surgery given her age. Her and herself want to proceed. She should be n.p.o. She w ill have antibiotic prophylaxis and DVT prophylaxis appropriately.
[2018-05-14] MEDS ORDERED: CEFAZOLIN 1 GM VIAL SLOW IVP SCH (14:00)
[2018-05-14] MEDS ORDERED: CEFAZOLIN/Water 2 GM/20 ML SYRINGE ONE (14:32)
--- NOTE | 2018-05-14 14:36 | PRG-2 ---
DATE OF SERVICE: 05/14/2018 SUBJECTIVE: This is an 87-year-old female, Albanian speaking only, diagnosed with right femo ral neck fracture status post fall. This morning the patient does complain of significant pain. The patient is unable to quantify pain. Patient reports that the greatest amount of pain is in her righ t shoulder currently. Patient had shoulder and elbow x-rays of the right side done in the ER which w ere both negative for bony abnormalities. Patient denies any chest pain, shortness of breath, abdomi nal pain at this time. PHYSICAL EXAMINATION: VITAL SIGNS: Temperature 98.0, heart rate 76, respirations 15, O2 sat 96 on room air, blood pressure 148/72. GENERAL: The patient is lying in bed, in no acute distress. CARDIOVASCULAR: Heart regular rate and rhythm with no murmurs. LUNGS: Clear to auscultation. ABDOMEN: Soft, bowel sounds present. EXTREMITIES: The patient moves all 4 extremities. LABORATORY DATA: WBC 12.0, hemoglobin 11.0, hematocrit 32.4, MCV 96.8, platelet count 272. UA from this morning shows moderate blood, moderate leukocyte esterase, 7-10 RBCs, 11-20 wbc's, 7-10 squamous cells, 1+ bacteria, 7-10 hyaline casts. RADIOGRAPHIC IMAGING: None to review today. ASSESSMENT: 1. Status post ground level fall. 2. Right femoral neck fracture. 3. Acute traumatic pain secondary to above. 4. Hypertension. 5. History of hyperlipidemia. PLAN: Patient will be taken back for ORIF of right femoral fracture later today. The patient is n.p .o. at this time. We started the patient on IV Tylenol for pain management and I will change the pat ient to p.o. medication after her surgery. We are pending patient's urine culture. Dr. Abreu saw this patient. We discussed the treatment and plan.
[2018-05-14] MEDS ORDERED: Fentanyl 100 MCG/2 ML VIAL ONE (15:38)
[2018-05-14] MEDS: Amlodipine 5 mg/Benazepril 10 mg CAP PO SCH ×2 (17:09→22:00)
[2018-05-14] MEDS: Famotidine 20 MG TAB PO SCH (17:10)
[2018-05-14] MEDS: Aspirin 81 mg Enteric Coated Tablet PO SCH ×2 (17:10→22:00)
[2018-05-14] MEDS ORDERED: Promethazine HCl 25 MG/ML VIAL SLOW IVP PRN (17:23)
[2018-05-14] MEDS ORDERED: Promethazine HCl 25 MG/ML VIAL IM PRN (17:23)
[2018-05-14] MEDS ORDERED: Ondansetron HCl/PF 4 MG/2 ML Vial IVP PRN (17:23)
--- NOTE | 2018-05-14 20:20 | RAD ---
RIGHT HIP THREE VIEWS: 05/14/18 HISTORY: Intraoperative films. This shows open reduction and internal fixation of what appears to be an intertrochanteric fracture o f the right hip with a gamma nail and short stem intramedullary farzad. IMPRESSION: Intraoperative film showing fixation of intertrochanteric fracture. POS: [facility]
--- NOTE | 2018-05-14 20:24 | OP ---
DATE OF OPERATION: 05/14/2018 OPERATIONS PERFORMED: Right femur intertrochanteric fracture, intramedullary nail fixation. PREOPERATIVE DIAGNOSIS: Right femur intertrochanteric fracture. POSTOPERATIVE DIAGNOSIS: Right femur intertrochanteric fracture. COMPLICATIONS: None. ESTIMATED BLOOD LOSS: 100 mL SURGEON: Yordan Orellana M.D. MAILING MACHINE ASSISTANT: Paul Cordova PA-C IMPLANTS: Synthes short trochanteric nail size 11 mm with helical blade. INDICATIONS: Ms. Case is an 87-year-old female who fell. She fractured the intertrochanteric region of her proximal femur. She was indicated for intramedullary nail fixation to restore anatomic align ment and promote healing and restore mobility. Risks have been reviewed in detail. She elected to p roceed with the operation. DESCRIPTION OF OPERATION: Ms. Case was identified in the preoperative holding area. Her correct ext remity was marked. She was carried to the operating room. She was positioned supine. General anest hesia was induced. A multidisciplinary timeout was performed. The right lower extremity was prepped and draped in sterile fashion. We began the procedure with a multidisciplinary timeout. The patien t was given intravenous antibiotics. At this point, we made an incision proximal to the trochanter a fter the hip was reduced under intraoperative x-ray. We then inserted a guidewire at the tip of the trochanter. We overdrilled the guidewire. We then inserted our 11 mm trochanteric nail. Finally, w yessica placed our helical blade through the appropriate positioning device into the center position of the femoral head. This was placed in a dynamic position. Finally, we placed a cross lock screw distall y. We took final images. We thoroughly irrigated with copious lavage. At this point, we closed all wounds and took the patient to the recovery room in good condition without complication.
[2018-05-14] MEDS: CEFAZOLIN/Water 2 GM/20 ML SYRINGE SLOW IVP SCH (21:58)
[2018-05-15] MEDS: traMADol HCl 50 MG TAB PO SCH ×4 (00:06→18:21)
[2018-05-15] MEDS: Acetaminophen 325 MG TAB PO SCH ×4 (00:06→18:22)
[2018-05-15] MEDS: Ketorolac Tromethamine 30 MG/ML VIAL IVP SCH (06:39)
[2018-05-15] MEDS: CEFAZOLIN/Water 2 GM/20 ML SYRINGE SLOW IVP SCH (06:40)
[2018-05-15 07:33] LABS: #Basophils 0.1 thou/uL (0.0-0.2); #Eosinphils 0.3 thou/uL (0.0-0.7); #Lymphocytes 1.6 thou/uL (1.20-3.40); #Monocytes 0.6 thou/uL (0.11-0.59); %Basophils 0.7 % (0.0-1.0); %Eosinophils 4.5 % (0.0-10.0); %Lymphocytes 20.6 % (21.0-51.0); %Monocytes 7.3 % (0.0-10.0); %Neutrophils 66.8 % (42.0-75.0); Hemoglobin 9.1 g/dL (12.0-16.0); Mean Corpuscular HGB CONC 33.2 g/dL (32.0-36.0); Mean Corpuscular Hemoglobin 32.8 pg (27.0-31.0); Mean Platelet Volume 8.1 fL (7.4-10.4); Platelet Count 248 thou/uL (130-400); RBC Distribution Width 11.8 % (11.5-14.5); Red Blood Cell (RBC) Count 2.77 mill/uL (4.20-5.40); White Blood Cell (WBC) Count 7.5 thou/uL (4.8-10.8)
[2018-05-15] MEDS: Aspirin 81 mg Enteric Coated Tablet PO SCH ×2 (09:56→20:43)
[2018-05-15] MEDS: Amlodipine 5 mg/Benazepril 10 mg CAP PO SCH ×2 (09:56→20:43)
[2018-05-15] MEDS: Famotidine 20 MG TAB PO SCH (09:56)
--- NOTE | 2018-05-15 14:25 | PRG ---
DATE OF SERVICE: 05/15/2018 SUBJECTIVE: The patient is postop day #2 status post ground level fall when she sustained a right fe moral neck fracture. She subsequently undergone open reduction internal fixation of same. She did w ell with that procedure. She started working with physical and occupational therapy and has already walked greater than 100 feet. The patient is tolerating a diet and her pain is controlled. PHYSICAL EXAMINATION: VITAL SIGNS: Temperature is 98.3, heart rate 57, blood pressure 137/64, respirations 16, oxygen satu ration is 93% on room air. GENERAL: The patient is resting comfortably in a chair, sitting at bedside. She has just completed her breakfast. 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 She is doing well and appropriate. HEENT: Unremarkable. LUNGS: Clear to auscultation with good inspiratory and expiratory effort. HEART: Regular rate and rhythm. ABDOMEN: Soft, flat, nontender with active bowel sounds. EXTREMITIES: Neurovascularly intact x4. Postop dressing is clean, dry, and intact. LABORATORY DATA: White blood cell count 7.5, hemoglobin 9.1, hematocrit 27.4, platelets 248. Sodium 140, potassium 3.7, chloride 105, CO2 of 30, BUN 13, creatinine 0.80, glucose 107. There are no rad iographs to review this morning. ASSESSMENT AND PLAN: 1. Status post ground level fall. 2. Status post intramedullary nail fixation of a right intertrochanteric femur fracture. Plan will be to continue physical and occupational therapy and the patient will currently is most lik corey scheduled to return to [facility] on Friday.
[2018-05-15] MEDS: Sodium Chloride 0.9% 1,000 ML IV SCH (14:28)
[2018-05-16] MEDS: traMADol HCl 50 MG TAB PO SCH ×5 (00:05→23:12)
[2018-05-16] MEDS: Acetaminophen 325 MG TAB PO SCH ×5 (00:05→23:12)
[2018-05-16] MEDS: Sodium Chloride 0.9% 1,000 ML IV SCH (06:38)
[2018-05-16] MEDS ORDERED: Amlodipine 5 mg/Benazepril 10 mg CAP PO SCH (07:29)
[2018-05-16] MEDS ORDERED: traMADol HCl 50 MG TAB PO PRN (07:29)
[2018-05-16 08:11] LABS: #Eosinphils 0.3 thou/uL (0.0-0.7); #Lymphocytes 1.5 thou/uL (1.20-3.40); #Monocytes 0.6 thou/uL (0.11-0.59); #Neutrophils 6.6 thou/uL (1.40-6.50); %Basophils 0.3 % (0.0-1.0); %Eosinophils 3.2 % (0.0-10.0); %Lymphocytes 16.1 % (21.0-51.0); %Monocytes 6.8 % (0.0-10.0); %Neutrophils 73.6 % (42.0-75.0); Hemoglobin 8.4 g/dL (12.0-16.0); Mean Corpuscular Hemoglobin 32.7 pg (27.0-31.0); Mean Corpuscular Volume 99.1 fL (78.0-98.0); Mean Platelet Volume 8.3 fL (7.4-10.4); Platelet Count 233 thou/uL (130-400); RBC Distribution Width 11.7 % (11.5-14.5); Red Blood Cell (RBC) Count 2.56 mill/uL (4.20-5.40)
[2018-05-16 08:26] LABS: Anion Gap 7 mmol/L (10-20); BUN (Urea Nitrogen) 12 mg/dL (9.8-20.1); Calc. Creatinine Clearance 39 mL/min (70-130); Calcium 10.3 mg/dL (7.8-10.44); Carbon Dioxide 28 mmol/L (23-31); Chloride 105 mmol/L (98-107); Estimated GFR-MDRD 82; Glucose 81 mg/dL (83-110); Magnesium 1.3 mg/dL (1.6-2.6); Phosphorus 2.1 mg/dL (2.3-4.7); Potassium 3.5 mmol/L (3.5-5.1); Sodium 136 mmol/L (136-145)
[2018-05-16] MEDS: Ondansetron HCl/PF 4 MG/2 ML Vial IV PRN (08:44)
[2018-05-16] MEDS ORDERED: Hydrocortisone Sod Succ/PF 100 mg/2 ml Vial IVP SCH (09:15)
[2018-05-16] MEDS: Famotidine 20 MG TAB PO SCH (09:38)
[2018-05-16] MEDS: Ascorbic Acid 500 mg Chewable Tablet PO SCH ×2 (09:38→20:45)
[2018-05-16] MEDS: Polyethylene Glycol 3350 17 GM Packet PO SCH (09:38)
[2018-05-16] MEDS: Aspirin 81 mg Enteric Coated Tablet PO SCH ×2 (09:38→20:46)
[2018-05-16] MEDS: Senokot S 8.6-50 MG TAB PO SCH ×2 (09:38→20:45)
[2018-05-16] MEDS ORDERED: Magnesium Sulfate 2 GM in Sodium Chloride 0.9% 100 ML IVPB SCH (09:45)
[2018-05-16] MEDS ORDERED: Potassium Phosphate 30 MMOL in Sodium Chloride 0.9% 500 ML IVPB SCH (09:45)
--- NOTE | 2018-05-16 10:46 | RAD ---
THREE VIEWS RIGHT SHOULDER: DATE: 05/16/18. HISTORY: Right shoulder pain after a fall. COMPARISON: 05/13/18. FINDINGS: Again noted is osteopenia. There is acromioclavicular joint osteoarthritis. No fracture or dislocat ion is seen involving the right shoulder. Vascular calcifications are again seen in the thoracic aor ta. There is calcification seen in the subcutaneous soft tissues adjacent to the diaphysis of the ri ght humerus. There has been no interval change from the prior exam. IMPRESSION: 1. Osteopenia without evidence of an acute osseous abnormality right shoulder. 2. Right acromioclavicular osteoarthritis. POS: [facility]
[2018-05-16 11:59] LABS: Bilirubin Negative (Negative); Blood, Urine Trace (Negative); Clarity CLOUDY (Clear); Glucose, Urine (Dipstick) Negative (Negative); Leukocyte Moderate (Negative); Nitrite Negative (Negative); Protein, Urine (Dipstick) Negative (Neg-Trace); Specific Gravity, Urine 1.022 (1.002-1.036); Urobilinogen 0.2 mg/dL (0.2-1.0)
[2018-05-16 12:02] LABS: Bacteria/HPF None Seen HPF (None Seen); Pathc Cast-AUWi Flag 2.47 (0-2.49); WBC/HPF 21-50 HPF (0-3)
[2018-05-16 12:13] LABS: Hyaline Casts/LPF 7-10 HYALINE CAST LPF (0-3 Hyaline); Renal Epithelial 0-3 HPF (0-3); Transitional Epithelial 0-3 HPF (0-3)
[2018-05-16] MEDS: Hydrocortisone Sod Succ/PF 100 mg/2 ml Vial IVP SCH ×2 (15:18→20:51)
--- NOTE | 2018-05-16 17:40 | PRG ---
DATE OF SERVICE: 05/16/2018 SUBJECTIVE: This is an 87-year-old female status post mechanical fall, postop day #3 status post hip fracture repair. This morning, the patient was working with physical therapy upon my evaluation and was vomiting. Pain was uncontrolled and she was unable to ambulate more than a few feet. Additiona lly, the patient was mildly hypotensive with a systolic blood pressure in the low 90s overnight. OBJECTIVE: VITAL SIGNS: Temperature 98.7, pulse 71, respiration rate 18, O2 sat 91%-92% on room air, blood pres sure 107/67. GENERAL: Elderly appearing female in mild distress secondary to vomiting, sitting on edge of bed. PULMONARY: Normal work of breathing. Symmetric rise. CARDIOVASCULAR: Regular rate and rhythm. GASTROINTESTINAL: Abdomen is soft, nontender, nondistended. MUSCULOSKELETAL: Moves all extremities x4. NEUROLOGIC: No focal deficit is noted. LABORATORY DATA: WBC 9.0, hemoglobin 8.4, hematocrit 25.4, platelet count 233. Sodium 136, potassiu m 3.5, chloride 105, carbon dioxide 28, BUN 12, creatinine 0.68, glucose 81. Phosphorous 2.1, magnes ium 1.3. Cortisol 10. ASSESSMENT: 1. Status post mechanical fall. 2. Right hip fracture. 3. Acute traumatic pain. 4. Nausea and vomiting. 5. Hypotension. 6. Adrenal insufficiency. PLAN: Start patient on hydrocortisone. Hold antihypertensives at this time. Replete abnormal elect rolytes. Start patient on a bowel regimen as she has not had a bowel movement since admission. Jim tionally, the patient still has her Griffiths, we will discontinue now. Continue PT and OT. Hold discha rge until patient's pain is better controlled and blood pressure improves. Patient has been discusse d with trauma attending. Plan of care was discussed with the patient through the use of a compotype operator and all questions were answered at the time of this dictation.
[2018-05-16] MEDS: Ferrous Sulfate 325 MG TAB PO SCH (17:41)
[2018-05-16] MEDS: Donepezil HCl 5 MG TAB PO SCH (20:46)
[2018-05-17] MEDS: Hydrocortisone Sod Succ/PF 100 mg/2 ml Vial IVP SCH ×4 (04:00→22:02)
[2018-05-17] MEDS: Acetaminophen 325 MG TAB PO SCH ×3 (05:25→18:06)
[2018-05-17] MEDS: traMADol HCl 50 MG TAB PO SCH ×3 (05:25→18:07)
[2018-05-17 05:33] LABS: #Monocytes 0.6 thou/uL (0.11-0.59); %Basophils 0.1 % (0.0-1.0); %Eosinophils 0.3 % (0.0-10.0); %Lymphocytes 13.5 % (21.0-51.0); %Monocytes 7.8 % (0.0-10.0); %Neutrophils 78.3 % (42.0-75.0); Hemoglobin 7.8 g/dL (12.0-16.0); Mean Corpuscular HGB CONC 33.5 g/dL (32.0-36.0); Mean Corpuscular Hemoglobin 33.2 pg (27.0-31.0); Mean Corpuscular Volume 99.1 fL (78.0-98.0); Mean Platelet Volume 8.4 fL (7.4-10.4); Platelet Count 252 thou/uL (130-400); RBC Distribution Width 11.7 % (11.5-14.5); Red Blood Cell (RBC) Count 2.33 mill/uL (4.20-5.40); White Blood Cell (WBC) Count 7.7 thou/uL (4.8-10.8)
[2018-05-17 05:55] LABS: Anion Gap 8 mmol/L (10-20); BUN (Urea Nitrogen) 17 mg/dL (9.8-20.1); Calc. Creatinine Clearance 37 mL/min (70-130); Calcium 9.9 mg/dL (7.8-10.44); Carbon Dioxide 27 mmol/L (23-31); Chloride 101 mmol/L (98-107); Estimated GFR-MDRD 78; Glucose 100 mg/dL (83-110); Magnesium 1.5 mg/dL (1.6-2.6); Phosphorus 2.8 mg/dL (2.3-4.7); Potassium 3.9 mmol/L (3.5-5.1); Sodium 132 mmol/L (136-145)
[2018-05-17] MEDS ORDERED: Magnesium Sulfate 3 GM, IV Admixture Fee-Chemo 1 UNITS in Sodium Chloride 0.9% 100 ML IVPB SCH (08:15)
[2018-05-17] MEDS: Aspirin 81 mg Enteric Coated Tablet PO SCH ×2 (08:25→21:59)
[2018-05-17] MEDS: Famotidine 20 MG TAB PO SCH (08:25)
[2018-05-17] MEDS: Ferrous Sulfate 325 MG TAB PO SCH ×2 (08:25→18:07)
[2018-05-17] MEDS: Senokot S 8.6-50 MG TAB PO SCH ×2 (08:25→21:54)
[2018-05-17] MEDS: Ascorbic Acid 500 mg Chewable Tablet PO SCH ×2 (08:26→21:54)
[2018-05-17] MEDS: Polyethylene Glycol 3350 17 GM Packet PO SCH (08:26)
[2018-05-17] MEDS: Ondansetron HCl/PF 4 MG/2 ML Vial IV PRN (10:51)
[2018-05-17] MEDS ORDERED: Furosemide 40 MG/4 ML VIAL SLOW IVP SCH (15:30)
[2018-05-17] MEDS ORDERED: Glycerin Adult Supp. (12 ct jar) PR SCH (18:00)
--- NOTE | 2018-05-17 18:05 | PRG ---
DATE OF SERVICE: 05/17/2018 SUBJECTIVE: This is an 87-year-old female, who is postop day #4 status post hip fracture repair. Th ere were no acute overnight events. No further nausea and vomiting. Upon my evaluation this morning , the patient vocalized no complaint. OBJECTIVE: VITAL SIGNS: Temperature 98.4, pulse 66, respirations 18, O2 sat 91% on room air, blood pressure 115 /64. GENERAL: Elderly appearing female in no acute distress, resting in bed. PULMONARY: Normal work of breathing. Symmetric rise. CARDIOVASCULAR: Regular rate and rhythm, no obvious murmurs, rubs, or gallops. GASTROINTESTINAL: Soft, nontender, nondistended. MUSCULOSKELETAL: Moves all extremities x4. NEUROLOGIC: No focal deficit is noted. LABORATORY FINDINGS: WBC 7.7, hemoglobin 7.8, hematocrit 23.1, platelet count 252. Sodium 132, pota ssium 3.9, chloride 101, carbon dioxide 27, BUN 17, creatinine 0.71, glucose 100, phosphorus 2.8, mag nesium 1.5. ASSESSMENT: 1. Status post mechanical fall. 2. Right hip fracture. 3. Acute traumatic pain. 4. Adrenal insufficiency, resolved. 5. Constipation. PLAN: Continue PT and OT as ordered. Continue to encourage mobility. We will reduce steroid freque ncy at this time, as blood pressure is now improved with plan for discontinuation tomorrow. Increase bowel regimen. After my evaluation, the patient did have some hypertension associated with hypoxia. Intake and output reveal the patient is positive for the duration of her hospitalization, one-time dose IV Lasix now. A.m. labs. The patient has been discussed with trauma attending.
[2018-05-17] MEDS: Donepezil HCl 5 MG TAB PO SCH (21:57)
[2018-05-18] MEDS: Acetaminophen 325 MG TAB PO SCH ×2 (00:01→06:16)
[2018-05-18] MEDS: traMADol HCl 50 MG TAB PO SCH ×2 (00:02→06:16)
[2018-05-18] MEDS: Senokot S 8.6-50 MG TAB PO SCH ×2 (00:20→09:42)
[2018-05-18 04:39] LABS: Anion Gap 9 mmol/L (10-20); BUN (Urea Nitrogen) 14 mg/dL (9.8-20.1); Calc. Creatinine Clearance 39 mL/min (70-130); Calcium 10.6 mg/dL (7.8-10.44); Carbon Dioxide 28 mmol/L (23-31); Chloride 105 mmol/L (98-107); Estimated GFR-MDRD 82; Glucose 99 mg/dL (83-110); Phosphorus 2.4 mg/dL (2.3-4.7); Potassium 3.8 mmol/L (3.5-5.1); Sodium 138 mmol/L (136-145)
[2018-05-18 07:51] VITALS: BP 156/76; TEMP 98.1
[2018-05-18 07:52] LABS: #Lymphocytes 1.1 thou/uL (1.20-3.40); #Monocytes 0.4 thou/uL (0.11-0.59); #Neutrophils 6.9 thou/uL (1.40-6.50); %Basophils 0.4 % (0.0-1.0); %Eosinophils 0.3 % (0.0-10.0); %Lymphocytes 13.3 % (21.0-51.0); %Neutrophils 80.9 % (42.0-75.0); Mean Corpuscular HGB CONC 33.2 g/dL (32.0-36.0); Mean Corpuscular Hemoglobin 33.3 pg (27.0-31.0); Mean Platelet Volume 8.9 fL (7.4-10.4); Platelet Count 280 thou/uL (130-400); RBC Distribution Width 11.8 % (11.5-14.5); Red Blood Cell (RBC) Count 2.39 mill/uL (4.20-5.40); White Blood Cell (WBC) Count 8.5 thou/uL (4.8-10.8)
[2018-05-18] MEDS ORDERED: Bisacodyl 10 MG SUPP PR SCH (09:00)
[2018-05-18] MEDS: Polyethylene Glycol 3350 17 GM Packet PO SCH (09:42)
[2018-05-18] MEDS: Ascorbic Acid 500 mg Chewable Tablet PO SCH (09:42)
[2018-05-18] MEDS: Ferrous Sulfate 325 MG TAB PO SCH (09:42)
[2018-05-18] MEDS: Aspirin 81 mg Enteric Coated Tablet PO SCH (09:42)
[2018-05-18] MEDS: Hydrocortisone Sod Succ/PF 100 mg/2 ml Vial IVP SCH (09:43)
[2018-05-18] MEDS: Famotidine 20 MG TAB PO SCH (09:43)
--- NOTE | 2018-05-19 13:26 | DIS ---
DATE OF ADMISSION: 05/13/2018 DATE OF DISCHARGE: 05/18/2018 ADMISSION DIAGNOSES: 1. Status post ground level fall. 2. Right femoral neck fracture. 3. Acute traumatic pain. 4. History of hypertension. 5. History of hyperlipidemia. DISCHARGE DIAGNOSES: 1. Status post ground level fall. 2. Right femoral neck fracture. 3. Acute traumatic pain. 4. History of hypertension. 5. History of hyperlipidemia. CONSULTANTS: Dr. Orellana, Orthopedic Surgery. PROCEDURES: On 05/14/2018, intramedullary nail right femur with Dr. Orellana. HOSPITAL COURSE: Yaz Case is an 87-year-old female who sustained a ground level fall outside of h er home which was witnessed by a neighbor. She was brought to [facility] and found to have the above injuries. She was admitted to the surgical floor and underwent operative interventio n to her injuries on 05/14/2018. Postoperatively, the patient did well. However, postop day 2, she was nauseated with hypotension and found to be adrenally insufficient. Antihypertensives were held a nd she was started on a very short course of IV steroids. Additionally, the patient had a complaint of dizziness and weakness upon standing. Her blood pressure improved thereafter, and her dizziness r esolved. She continued to work with physical therapy. Pain was controlled with p.o. analgesics. Reymundo juan was accepted to longterm facility and medically stable for discharge. DISCHARGE DISPOSITION: long-term facility. DISCHARGE CONDITION: Good. PHYSICAL EXAMINATION: VITAL SIGNS: Temperature 98.1, pulse 60, respirations 18, O2 sat 94% on room air, blood pressure 156 /76. GENERAL: Elderly appearing female in no acute distress, resting in bed, eating breakfast. PULMONARY: Normal work of breathing, symmetric rise. CARDIOVASCULAR: Pulses 2+ bilaterally. GASTROINTESTINAL: Abdomen is soft, nontender, nondistended. MUSCULOSKELETAL: Moves all extremities x4. NEUROLOGIC: No focal deficit is noted. DISCHARGE INSTRUCTIONS: Discharge instructions were provided to the patient and the accepting facili ty. All questions were answered prior to discharge. They are as documented in the discharge plan an d documentation. DISCHARGE MEDICATIONS: Discharge medications were as documented in the electronic medical record. A list of which was provided to the accepting facility. Of note, her antihypertensives were held duri ng the course of her hospitalization secondary to intermittent hypotension and adrenal insufficiency. They may be resumed at the discretion of her primary care provider. FOLLOWUP APPOINTMENTS: The patient is to follow up with her primary care provider for hypertension. She is to follow up with orthopedic surgery in 10-14 days. She does not need to follow up formally with Trauma Services, but may call our office with any questions. This is merely a summary of the sanjiv toscano's hospitalization. For more in-depth information, please see her medical record in its entiret y.
== END 2018-05-18 11:25 | DRG 481 ==
LOC: ERS 20:09 → SJJU 22:42
PROVIDERS: ADMIT Surgery; ATTEND Surgery
PROC: 0QS604Z Reposition Right Upper Femur with Internal Fixation Device, Open Approach (ICD-10-PCS; principal; 2018-05-14)
DX: S72.141A Displaced intertrochanteric fracture of right femur, initial encounter for closed fracture (principal); E27.40 Unspecified adrenocortical insufficiency; N39.0 Urinary tract infection, site not specified; I10 Essential (primary) hypertension; E78.5 Hyperlipidemia, unspecified; Z87.440 Personal history of urinary (tract) infections; Z91.81 History of falling; Z88.5 Allergy status to narcotic agent; Z88.2 Allergy status to sulfonamides; Z91.048 Other nonmedicinal substance allergy status; K59.00 Constipation, unspecified; I95.9 Hypotension, unspecified; W18.30XA Fall on same level, unspecified, initial encounter
CPT/HCPCS: 36415; 71045; 72170; 76000; 80048; 80053; 81001; 81003; 81015; 82533; 82553; 83735; 84100; 84484; 85025; 85610; 85730; 87086; 93005; 96374; 96375; 96376; C1713; G8978-GP-CL; G8979-GP-CJ; G8987-GO-CL; G8988-GO-CJ; J0131; J0690; J1720; J1885; J1940; J2270; J2405; J2704; J3010; J3475; J7050

== ENCOUNTER 2019-03-30 12:33 | Emergency (ER) | payer MEDICARE, OTHER ==
[2019-03-30 13:43] LABS: #Eosinphils 0.4 thou/uL (0.0-0.7); #Lymphocytes 2.2 thou/uL (1.20-3.40); #Monocytes 0.9 thou/uL (0.11-0.59); #Neutrophils 7.2 thou/uL (1.40-6.50); %Basophils 0.3 % (0.0-1.0); %Eosinophils 3.4 % (0.0-10.0); %Lymphocytes 20.6 % (21.0-51.0); %Monocytes 8.3 % (0.0-10.0); %Neutrophils 67.4 % (42.0-75.0); Hemoglobin 13.2 g/dL (12.0-16.0); Mean Corpuscular HGB CONC 33.2 g/dL (32.0-36.0); Mean Corpuscular Volume 99.5 fL (78.0-98.0); Platelet Count 318 thou/uL (130-400); RBC Distribution Width 12.2 % (11.5-14.5); Red Blood Cell (RBC) Count 3.99 mill/uL (4.20-5.40); White Blood Cell (WBC) Count 10.7 thou/uL (4.8-10.8)
[2019-03-30 13:57] LABS: Lactic Acid 1.7 mmol/L (0.5-2.2)
[2019-03-30 14:03] LABS: ALT (SGPT) 16 U/L (8-55); AST (SGOT) 17 U/L (5-34); Albumin 4.6 g/dL (3.4-4.8); Alkaline Phosphatase 65 U/L (40-150); Anion Gap 12 mmol/L (10-20); BUN (Urea Nitrogen) 23 mg/dL (9.8-20.1); Bilirubin, Total 0.2 mg/dL (0.2-1.2); Calc. Creatinine Clearance 0 mL/min (70-130); Carbon Dioxide 25 mmol/L (23-31); Chloride 105 mmol/L (98-107); Estimated GFR-MDRD 71; Globulin 3.5 g/dL (2.4-3.5); Glucose 132 mg/dL (83-110); Lipase 35 U/L (8-78); Potassium 4.2 mmol/L (3.5-5.1); Protein, Total 8.1 g/dL (6.0-8.3); Sodium 138 mmol/L (136-145)
[2019-03-30 14:07] LABS: Troponin I Less than 0.010 ng/mL (< 0.028)
--- NOTE | 2019-03-30 14:22 | RAD ---
PORTABLE CHEST 1 VIEW: Date: 03/30/19 Time: 1352 hours HISTORY: Left lower quadrant pain. Chest pain. FINDINGS/IMPRESSION: Comparison made with exam of 05/13/18. The heart size is enlarged. The aorta is tortuous. There is subsegmental atelectasis at the left lung base. No lobar consolidation, pneumothoraces, or large effusions are seen. POS: [facility]
[2019-03-30] MEDS ORDERED: ISOVUE-370 76%-LOCM 1 ML ONE (14:50)
[2019-03-30] MEDS ORDERED: diphenhydrAMINE 50 MG/ML VIAL ONE (15:04)
[2019-03-30] MEDS ORDERED: methylPREDNISolone Sod Succ/PF 125 MG/2 ML VIAL ONE (15:04)
[2019-03-30] MEDS ORDERED: Famotidine/PF 20 mg/2ml Vial ONE (15:04)
[2019-03-30 15:21] LABS: Bacteria/HPF 4+ HPF (None Seen); Bilirubin Negative (Negative); Blood, Urine 2+ (Negative); Clarity Clear (Clear); Glucose, Urine (Dipstick) Normal (Negative); Leukocyte 250 Leu/uL (Negative); Nitrite Negative (Negative); Protein, Urine (Dipstick) 30 mg/dL (Neg-Trace); Squamous Epithelial None Seen HPF (0-3); Urobilinogen Normal mg/dL (Less than 2); WBC/HPF 21-50 HPF (0-3)
[2019-03-30] MEDS ORDERED: Ibuprofen 800 MG TAB ONE (15:48)
[2019-03-30] MEDS ORDERED: cefTRIAXone\\ROCEPHIN 1 GM VIAL ONE (15:48)
--- NOTE | 2019-03-30 16:47 | CT ---
CT CHEST AND ABDOMEN AND PELVIS WITH IV CONTRAST: Oral contrast was not given. INDICATION: Chest pain and abdominal pain. Left chest pain. Comparison made to CT abdomen and pelvis without IV contrast dated 02/04/18. FINDINGS: CT CHEST: Lungs show chronic lung parenchymal changes. Mild pleural based atelectasis in the posterior right lo wer lobe and streaky atelectasis in the posterior left lung base. No evidence of inflammatory infiltr ate. No effusion. There is no evidence of rib fracture. The bony thorax appears unremarkable with deg enerative spine changes. The mediastinum is unremarkable. Thoracic aorta shows mild atherosclerotic c hange. No dissection. Proximal pulmonary arteries are opacified with no evidence of proximal pulmonar y embolus. No adenopathy. IMPRESSION: Chronic lung parenchymal changes. Mild bilateral posterior atelectasis. 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 This is stable from prior exam. Liver, spleen, and pancreas are unremarkable. Adrenal glands unremarkable. Kidneys unremarkable. Small bilateral renal cystic lesions. No hydronephrosis. Small bowel loops normal caliber. Diverticulosis of the left colon and sigmoid. No CT evidence of div erticulitis. Aorta shows atherosclerotic calcification without aneurysm. No adenopathy. No free fluid. Images through the pelvis show unremarkable uterus and adnexa. Evidence of a small left ovarian cyst measuring 1.0 cm. Degenerative spine changes. Deformity of the pelvis from old fractures appears stable. Intramedullary farzad and pin transfix the right hip. IMPRESSION: No acute abdominal process identified. POS: [facility]
== END 2019-03-30 17:09 | disposition home or self-care (01) ==
LOC: ERS 12:33
DX: N12 Tubulo-interstitial nephritis, not specified as acute or chronic (principal); R07.81 Pleurodynia; F41.9 Anxiety disorder, unspecified; G30.9 Alzheimer's disease, unspecified; I10 Essential (primary) hypertension; E78.00 Pure hypercholesterolemia, unspecified; K21.9 Gastro-esophageal reflux disease without esophagitis; F02.80 Dementia in other diseases classified elsewhere, unspecified severity, without behavioral disturbance, psychotic disturbance, mood disturbance, and anxiety; Z79.899 Other long term (current) drug therapy; Z79.82 Long term (current) use of aspirin
CPT/HCPCS: 71045; 71260; 74177; 80053; 81003; 81015; 83605; 83690; 84484; 85025; 93005; 96365; 96375; J0696; J1200; J2930; Q9966; S0028

== ENCOUNTER 2019-04-05 06:23 | Inpatient (IN) | payer MEDICARE, OTHER ==
[2019-04-05 07:01] LABS: #Eosinphils 0.1 thou/uL (0.0-0.7); #Lymphocytes 1.8 thou/uL (1.20-3.40); #Monocytes 1.1 thou/uL (0.11-0.59); #Neutrophils 11.3 thou/uL (1.40-6.50); %Basophils 0.2 % (0.0-1.0); %Eosinophils 0.5 % (0.0-10.0); %Lymphocytes 12.7 % (21.0-51.0); %Monocytes 7.4 % (0.0-10.0); %Neutrophils 79.2 % (42.0-75.0); Hemoglobin 12.1 g/dL (12.0-16.0); Mean Corpuscular HGB CONC 32.3 g/dL (32.0-36.0); Mean Corpuscular Hemoglobin 31.7 pg (27.0-31.0); Mean Platelet Volume 7.9 fL (7.4-10.4); Platelet Count 330 thou/uL (130-400); RBC Distribution Width 12.4 % (11.5-14.5); Red Blood Cell (RBC) Count 3.84 mill/uL (4.20-5.40); White Blood Cell (WBC) Count 14.3 thou/uL (4.8-10.8)
[2019-04-05 07:23] LABS: ALT (SGPT) 16 U/L (8-55); AST (SGOT) 14 U/L (5-34); Albumin 4.2 g/dL (3.4-4.8); Alkaline Phosphatase 61 U/L (40-150); Anion Gap 13 mmol/L (10-20); BUN (Urea Nitrogen) 25 mg/dL (9.8-20.1); Bilirubin, Total 0.4 mg/dL (0.2-1.2); CK (CPK) 33 U/L (29-168); Calc. Creatinine Clearance 0 mL/min (70-130); Calcium 10.6 mg/dL (7.8-10.44); Carbon Dioxide 26 mmol/L (23-31); Chloride 103 mmol/L (98-107); Estimated GFR-MDRD 62; Globulin 3.3 g/dL (2.4-3.5); Glucose 144 mg/dL (83-110); Lipase 20 U/L (8-78); Potassium 4.2 mmol/L (3.5-5.1); Protein, Total 7.5 g/dL (6.0-8.3); Sodium 138 mmol/L (136-145)
[2019-04-05] MEDS ORDERED: Ondansetron PF 4 MG/2 ML Vial ONE (07:27)
[2019-04-05] MEDS ORDERED: Levofloxacin 500 mg/D5W 100 ml Premix Bag ONE (07:27)
[2019-04-05] MEDS ORDERED: Pantoprazole 40 MG VIAL ONE (08:01)
[2019-04-05 08:33] LABS: Bilirubin Negative (Negative); Blood, Urine Trace (Negative); Clarity Clear (Clear); Glucose, Urine (Dipstick) Normal (Negative); Leukocyte 25 Leu/uL (Negative); Nitrite Negative (Negative); Protein, Urine (Dipstick) 30 mg/dL (Neg-Trace); RBC/HPF 0-3 HPF (0-3); Squamous Epithelial 0-3 HPF (0-3); Urobilinogen Normal mg/dL (Less than 2); WBC/HPF 0-3 HPF (0-3)
--- NOTE | 2019-04-05 08:43 | RAD ---
SINGLE VIEW OF THE CHEST: COMPARISON: 03/30/2019. HISTORY: Nausea and vomiting. FINDINGS: A single view of the chest shows a normal-size cardiomediastinal silhouette. Airspace opacity is see n in the left lung base which may represent atelectasis or an infiltrate. IMPRESSION: Left basilar atelectasis versus infiltrate. POS: [facility]
[2019-04-05 08:57] LABS: Bacteria/HPF 1+ HPF (None Seen)
--- NOTE | 2019-04-05 09:27 | CT ---
CT ABDOMEN WITHOUT CONTRAST: CT PELVIS WITHOUT CONTRAST: HISTORY: Vomiting. Nausea. COMPARISON: 03/30/2019 FINDINGS: ABDOMEN: Interval development of small bilateral pleural effusions. Adjacent lung parenchymal opaci ties are similar to the previous examination and likely represent atelectasis. A component of aspira tion or pneumonia cannot be entirely excluded. Stable hiatal hernia. There appears to be mucosal thickening in the distal thoracic esophagus. Heart size is normal. Surgically absent gallbladder. The liver, spleen, pancreas, and adrenal glands have appropriate attenuation. Evaluation of the neema d organs is limited by lack of IV contrast. Bilaterally, no obstructive uropathy. No gastrohepatic, retrocrural, or periportal lymphadenopathy. No mesenteric mass, lymphadenopathy, free air, or free fluid. Limited evaluation of the alimentary canal due to lack of oral contrast. No evidence of bowel obstru ction. The ileocecal junction is normal. Scattered fecal material in a nondistended, nondilated col on. Appendix is not appreciated. [id number], no inflammation at the cecal apex. Diverticulosis without evidence of diverticulitis. Mucosal prominence in the left semicolon, likely due to inadequ ate distention. PELVIS: The uterus and adnexal structures are unremarkable. The hypodensity noted in the left adnex a is once again demonstrated, measuring approximately 1 cm. The urinary bladder is unremarkable. No pelvic mass, lymphadenopathy, free air, or free fluid. Chronic changes to the osseous structures with a remote compression fracture at the L2 level. Nail Artist al fixation hardware involving the right hip is noted. IMPRESSION: 1. No acute abnormality within the abdomen or pelvis. 2. Small bilateral pleural effusions. Adjacent lung parenchymal changes are presumed to be chronic. 3. Diaphragmatic hernia. Mucosal thickening of the visualized distal thoracic esophagus. Correlate clinically. Consider endoscopy. POS: [facility]
[2019-04-05 11:04] LABS: Lactic Acid 2.9 mmol/L (0.5-2.2)
[2019-04-05 12:11] LABS: Hemoglobin 11.5 g/dL (12.0-16.0)
[2019-04-05] MEDS ORDERED: Ondansetron PF 4 MG/2 ML Vial IVP PRN (12:22)
[2019-04-05] MEDS ORDERED: Acetaminophen 650 MG Suppository PR PRN (12:22)
[2019-04-05] MEDS ORDERED: Morphine 2 MG/ML SYRINGE ONE (12:29)
[2019-04-05] MEDS ORDERED: Morphine 4 MG/ML VIAL SLOW IVP SCH (12:30)
--- NOTE | 2019-04-05 14:17 | HP ---
CHIEF COMPLAINT: Substernal chest pain with coffee-grounds emesis. HISTORY OF PRESENT ILLNESS: Ms. Case is an 88-year-old woman, who presents with nausea and vomiting since yesterday morning. The patient had an episode of vomiting early hours this morning between 3:00 and 4:00 a.m. and per EMS, had been reported by the retirement to have a coffee-ground appearance. The patient was also febrile with a temperature of 101. She has a history of GI bleeds according to ED documentation; however, the daughter states she is unaware of this. The patient does have a history of GERD, and the daughter is unsure of any upper endoscopy procedures in the past. She was recently seen in the emergency department on 03/30/2019, at which time she had presented with chest pain and abdominal pain. She underwent a CT of the chest, abdomen, and pelvis noted to have chronic lung parenchymal changes and mild bilateral posterior atelectasis with a small fixed sliding diaphragmatic hernia present, appearing stable from prior exam. There was no acute abdominal process noted. There was atherosclerotic calcification without aneurysm of the abdominal aorta, and there was mention of mild atherosclerotic change of the thoracic aorta as well, but no evidence of dissection. The patient underwent further investigations and was found to have a urinary tract infection, therefore, discharged on oral antibiotics which were continued in the retirement. The daughter is unsure if the patient has had any fevers prior to today. Per previous notes, she was discharged on . There is no urine culture or urinalysis on file from that visit. The discharge diagnosis was pyelonephritis. She does have a history of UTIs, the last urine culture that was positive was in January 2018, which grew E. coli. The patient is a poor historian due to slight dementia with memory problems. She remembers is vomiting early hours this morning and having discomfort since last night. She does not recall how she has been feeling in the last several days since her visit in the emergency department. Laboratory studies have been obtained in the emergency department today showing an elevated white count of 14.3, hemoglobin of 12.1, which is slightly reduced from level of 13.2 last week. Hematocrit is 37.6, platelets 330. Her BUN is elevated at 25 and was elevated last week at 23, prior to that it has been within normal range. Her creatinine has remained within normal range and she has a GFR of 62. Glucose of 144, lactic acid of 2.9, which was repeated again 4 hours later and remained elevated at 2.9. She has a calcium of 10.6. She has a history of parathyroid surgery and is on calcium supplements. Her total bilirubin is 0.4, AST 14, ALT 16, alkaline phosphatase 61, CK 33, troponin negative, BNP 18.8, albumin 4.2, and lipase 20. She has undergone a chest x-ray, which is notable for left basilar atelectasis versus infiltrates. Further imaging has been done of the abdomen and pelvis with a noncontrast CT scan showing no acute abnormality within the abdomen or pelvis. Small bilateral pleural effusions present. Adjacent lung parenchymal changes presumed to be chronic. She has a diaphragmatic hernia with mucosal thickening of the distal thoracic esophagus with endoscopy recommended. There was mention of a hypodensity involving the left adnexa, which appears stable and measures 1 cm. The patient has been given Protonix 40 mg IV and has been started on Levaquin for presumed persistent UTI. Urinalysis was obtained showing 30 of protein, trace blood, 1+ amorphous crystals, and 4 to 6 hyaline casts. There was +1 bacteria, 25 leukocyte esterase, 0 to 3 white blood cells, negative nitrites. The patient found resting comfortably. Easily woken for examination. She is alert and oriented. Able to answer questions appropriately. She did appear to be in discomfort intermittently during her assessment and examination. She states the pain worsens with deep inspiration. She states the pain is in the lower substernal region. Denies having any associated shortness of breath and describes a pressure that comes on intermittently. She denies having any cough or hemoptysis. Has had no further nausea or vomiting since early hours this morning. She does not recall what the vomit looked like and states she was not paying attention. Does not recall having any issues with dysphagia or odynophagia. No abdominal pain or cramping. Reports having melena, but is unsure for how long. Denies feeling lightheaded or dizzy. She does not walk due to previous hip fracture and is able to stand with assistance, but gets around in the retirement by wheelchair. She denies any other complaints. PAST MEDICAL HISTORY: 1. Hypertension. 2. Hyperlipidemia. 3. CKD. 4. Hypercalcemia. 5. History of UTIs. 6. Hypercalcemia. 7. Hypokalemia. 8. Right femur fracture. 9. GERD. 10. Alzheimer's. 11. Left/right pubis fracture. 12. Anxiety. PAST SURGICAL HISTORY: 1. Appendectomy. 2. Left hip surgery. SOCIAL HISTORY: The patient lives at a retirement. Denies any alcohol consumption, smoking, or drug use. ALLERGIES: 1. IODINE CONTRAST. 2. CODEINE. 3. SIMVASTATIN. 4. SULFA. 5. ULTRAM. 6. VICODIN. 7. DARVOCET. CURRENT MEDICATIONS: 1. Aspirin. 2. Amlodipine/benazepril. 3. Aricept. 4. Benazepril. 5. Zofran ODT. 6. Suprax. PHYSICAL EXAMINATION: GENERAL: The patient appears to be in intermittent discomfort, but no severe distress. She was initially found sleeping comfortably. VITAL SIGNS: Temperature 98.9, pulse 84, respirations 19, O2 saturation 94% on room air, and blood pressure 144/66. HEENT: Normocephalic and atraumatic. Pupils are equal, round, and reactive to light. Sclerae without icterus. Oropharynx is clear. Oral mucosa is dry. NECK: Supple. LUNGS: Clear bilaterally. CARDIAC: Regular rate and rhythm. No reproducible pain with palpation of chest wall. ABDOMEN: With mid abdominal and suprapubic discomfort on palpation. No rigidity, involuntary guarding present. No renal angle tenderness. Negative Altman sign. EXTREMITIES: No lower leg swelling or edema. NEUROLOGIC: Alert and oriented. Normal affect. Speech normal. No neuro deficits. SKIN: Dry with scaling of skin in bilateral lower extremities. INVESTIGATIONS: As mentioned above in HPI. IMPRESSION AND PLAN: Ms. Case is a pleasant 88-year-old woman, who is being referred for management of the followin. Upper gastrointestinal bleed. The patient with nausea and vomiting since yesterday and reported to have had coffee-grounds emesis by EMS. Her hemoglobin done in the ED is 12.1, slightly lower from last week when it was 13.2. She has had GI bleeds in the past. We will continue to monitor hemoglobin and hematocrit. She has an isolated elevated BUN of 25, and CT of abdomen and pelvis was notable for distal esophageal thickening. Consultation has been placed to Gastroenterology for evaluation and potentially endoscopy. The patient is n.p.o. at present. A type and screen was added on. We will continue IV Protonix and have changes to 40 mg b.i.d. The patient is hemodynamically normal at present. LFTs unremarkable. 2. Urinary tract infection. The patient without any documented urinalysis or urine culture from last visit, but was discharged on oral antibiotics. She was febrile on presentation. She has had a urinalysis done and urine culture is pending. The patient is started on Levaquin in the emergency department, and we will continue. Lactic acid elevated at 2.9 with elevated white count of 14.3. We will continue to monitor and continue gentle IV hydration. 3. Hypertension. Resume home medications and monitor blood pressure. 4. Abdominal pain. We will try 1 mg of morphine. We will continue to monitor. We will hold any p.o. analgesics. 5. Deep venous thrombosis prophylaxis. The patient apparently has a history of deep venous thrombosis per previous documentation. Daughter states she is on a blood thinner. This will need to be verified with the retirement. We will need to hold anticoagulation anyway given the concern for upper gastrointestinal bleed. 6. Hypercalcemia. We will continue to monitor. Should improve with IV hydration. Only mildly elevated at 10.6. Continue to monitor. 7. Code status full. The patient's surrogate decision maker is her , Jim Case. The patient's case will be discussed with Dr. Lott for further recommendations. Job ID: [id number]
[2019-04-05] MEDS: Sodium Chloride 0.9% 1,000 ML IV SCH (14:34)
[2019-04-05 14:37] LABS: Platelet Count 266 thou/uL (130-400)
[2019-04-05] MEDS ORDERED: cefTRIAXone\\ROCEPHIN 1 GM VIAL ONE (18:01)
[2019-04-05] MEDS: cefTRIAXone\\ROCEPHIN 1 GM in Sodium Chloride 0.9% 100 ML IVPB SCH (18:06)
[2019-04-05] MEDS: Pantoprazole 40 MG VIAL IVP SCH (21:00)
[2019-04-05 21:09] LABS: Hemoglobin 10.5 g/dL (12.0-16.0); Platelet Count 259 thou/uL (130-400)
--- NOTE | 2019-04-06 03:05 | CON ---
DATE OF CONSULTATION: 04/05/2019 CHIEF COMPLAINT: Coffee-grounds emesis. HISTORY OF PRESENT ILLNESS: Ms. Case is an 88-year-old woman who was admitted today through the emergency room as a transfer from the custodial. She reportedly had coffee-ground appearing emesis today and was noted to have a fever to 101. The patient had no abdominal pain. She had a CT scan in the emergency room that showed thickening of the distal esophagus. GI was consulted to evaluate for possible GI bleeding and abnormal CT. The patient has underlying dementia speaking only. Most of the history is taken from the chart. She was started on antibiotics for her UTI and pantoprazole in the ER. PAST MEDICAL HISTORY: Hypertension, hyperlipidemia, chronic kidney disease, hypercalcemia, UTI, Alzheimer's, gastroesophageal reflux disease. PAST SURGICAL HISTORY: Appendectomy, hip surgery. FAMILY HISTORY: Negative for GI malignancies. SOCIAL HISTORY: No alcohol, tobacco, or drugs. ALLERGIES: IODINE, CODEINE, SIMVASTATIN, SULFA, ULTRAM, VICODIN, DARVOCET. MEDICATIONS: Currently in the hospital include; 1. Ceftriaxone. 2. Pantoprazole. REVIEW OF SYSTEMS: Negative x10 systems reviewed except as stated in history of present illness. PHYSICAL EXAMINATION: VITAL SIGNS: Temperature 98.7, pulse 72, blood pressure 131/74. GENERAL: She is in no acute distress. She is awake and alert. HEENT: Her eyes have no scleral icterus. Oropharynx is clear without lesions. No cervical or supraclavicular lymphadenopathy. LUNGS: Clear to auscultation bilaterally. HEART: Regular rate and rhythm without murmur. ABDOMEN: Soft, nontender, and nondistended. Bowel sounds are present. EXTREMITIES: No lower extremity edema. LABORATORY DATA: White blood cell count 14.3, hemoglobin is 10.5, down from 13.2 on 03/30/2019, creatinine 0.87, calcium 10.6, bilirubin 0.4, AST 14, ALT 16, alkaline phosphatase 61, albumin 4.2, lipase 20. IMAGING: She had a CT scan of the abdomen and pelvis in the emergency room. The CT showed mucosal thickening of the distal esophagus and a hiatal hernia. IMPRESSION: 1. Hematemesis. The patient reportedly had coffee-grounds emesis at the custodial. Her hemoglobin did decrease in the hospital today from 13.2 to 10.5, however, she has not shown signs of overt bleeding here in the hospital. 2. Anemia of acute blood loss. 3. Abnormal CT scan showing distal esophageal thickening. Rule out esophagitis or neoplastic process. 4. Alzheimer dementia. RECOMMENDATIONS: 1. Proton pump inhibitor. 2. EGD tomorrow. 3. Check iron studies. Job ID: [id number]
[2019-04-06] MEDS: Sodium Chloride 0.9% 1,000 ML IV SCH ×2 (04:31→16:59)
[2019-04-06 06:33] LABS: #Eosinphils 0.4 thou/uL (0.0-0.7); #Lymphocytes 1.7 thou/uL (1.20-3.40); #Monocytes 0.8 thou/uL (0.11-0.59); #Neutrophils 6.6 thou/uL (1.40-6.50); %Basophils 0.4 % (0.0-1.0); %Eosinophils 4.1 % (0.0-10.0); %Lymphocytes 17.9 % (21.0-51.0); %Monocytes 8.4 % (0.0-10.0); %Neutrophils 69.2 % (42.0-75.0); Hemoglobin 11.1 g/dL (12.0-16.0); Mean Corpuscular Hemoglobin 32.8 pg (27.0-31.0); Mean Corpuscular Volume 99.5 fL (78.0-98.0); Mean Platelet Volume 8.5 fL (7.4-10.4); Platelet Count 248 thou/uL (130-400); RBC Distribution Width 12.4 % (11.5-14.5); Red Blood Cell (RBC) Count 3.38 mill/uL (4.20-5.40); White Blood Cell (WBC) Count 9.6 thou/uL (4.8-10.8)
[2019-04-06 06:41] LABS: Anion Gap 12 mmol/L (10-20); BUN (Urea Nitrogen) 13 mg/dL (9.8-20.1); Calc. Creatinine Clearance 56 mL/min (70-130); Calcium 9.1 mg/dL (7.8-10.44); Carbon Dioxide 24 mmol/L (23-31); Chloride 109 mmol/L (98-107); Estimated GFR-MDRD 82; Glucose 80 mg/dL (83-110); Iron 69 ug/dL (50-170); Iron Binding Capacity, Total 263 mcg/dL (265-497); Potassium 3.8 mmol/L (3.5-5.1); Sodium 141 mmol/L (136-145)
[2019-04-06] MEDS: Pantoprazole 40 MG VIAL IVP SCH ×2 (08:30→20:15)
[2019-04-06] MEDS: cefTRIAXone\\ROCEPHIN 1 GM in Sodium Chloride 0.9% 100 ML IVPB SCH (14:30)
--- NOTE | 2019-04-06 14:33 | RAD ---
PORTABLE CHEST: 04/06/19 HISTORY: Pleuritic chest pain. Hematemesis. COMPARISON: 04/05/19. Lung delaney appear clear of infiltrate. Heart size is upper normal and stable. Vascular markings with in normal range. The left basilar opacity noted on yesterday's film is less pronounced today. Parench ymal opacity in the left base is also described on yesterday's CT abdomen and pelvis. IMPRESSION: Left basilar atelectasis or infiltrate is again seen but is less pronounced than on yesterday's mirela ble film. POS: [facility]
[2019-04-06] MEDS ORDERED: Ketamine 50 MG/ML (10ML VIAL) ONE (15:08)
--- NOTE | 2019-04-06 17:14 | PDOC.HOSPP ---
- Subjective Encounter Date: 04/06/19 Encounter Time: 11:15 Subjective: Patient denies new complaints today. Family is waiting for patient to be taken down for EGD. Daughter reports she noticed some areas of excoriation in patient' s perineum from scratching - Objective Vital Signs & Weight: Vital Signs (12 hours) Temp Pulse Resp BP BP Pulse Ox 04/06/19 14:00 98.2 F 69 18 148/62 H 98 04/06/19 12:00 98.5 F 68 20 126/69 97 04/06/19 08:20 98.1 F 75 16 164/78 H 96 Weight Weight 60.583 kg I&O: 04/05/19 04/06/19 04/07/19 06:59 06:59 06:59 Intake Total 1650 Balance 1650 Result Diagrams: 04/06/19 05:59 04/06/19 05:59 Additional Labs: Accuchecks 04/05/19 17:20 POC Glucose 91 ROS - Review of Systems Gastrointestinal: reports: nausea, vomitting, abdominal pain Neurological: reports: weakness - Medication Medications: Active Medications Generic Name Dose Route Start Last Admin Trade Name Freq PRN Reason Stop Dose Admin Sodium Chloride 1,000 mls @ 75 mls/hr 04/05/19 13:00 04/06/19 16:59 Normal Saline 0.9% IV Not Given .[id number] MARY KATE Ceftriaxone Sodium 1 gm/ 100 mls @ 200 mls/hr 04/05/19 15:00 04/06/19 14:30 Sodium Chloride IVPB 100 mls Q24HR MARY KATE Administration Pantoprazole Sodium 40 mg 04/05/19 21:00 04/06/19 08:30 Protonix IVP 40 mg BID MARY KATE Administration - Exam Eye - other findings: conjunctiva pale ENT: moist mucosa ENT - other findings: pale mucous membranes Heart: RRR Respiratory: CTAB Gastrointestinal: soft, normal bowel sounds Gastrointestinal - other findings: diffusely tender Skin: normal turgor Neurological: CN's grossly intact Musculoskeletal: normal tone Psychiatric: oriented to person Hosp A/P (1) Hematemesis of unknown cause Code(s): K92.0 - HEMATEMESIS Status: Acute (2) Dyslipidemia Code(s): E78.5 - HYPERLIPIDEMIA, UNSPECIFIED Status: Chronic (3) Hypertension Code(s): I10 - ESSENTIAL (PRIMARY) HYPERTENSION Status: Chronic - Plan EGD today Will check H&H tonight Continue Rocephin, will most likely dc if culture continues to be negative Continue gentle hydration overnight May dc home tomorrow if stable recheck labs in AM
[2019-04-06] MEDS: Donepezil HCl 5 MG TAB PO SCH (20:14)
[2019-04-06] MEDS: Losartan 25 MG TAB PO SCH (20:14)
[2019-04-06 20:17] LABS: Hemoglobin 10.9 g/dL (12.0-16.0)
--- NOTE | 2019-04-06 23:08 | OP ---
DATE OF PROCEDURE: 04/06/2019 PROCEDURE PERFORMED: Esophagogastroduodenoscopy with biopsy. PREOPERATIVE DIAGNOSES: Hematemesis and abnormal CT scan showing thickening of the distal esophagus and anemia of acute blood loss. DESCRIPTION OF PROCEDURE: Informed consent was obtained from the patient. She was sedated with total intravenous anesthesia. The bite block was placed and the endoscope was advanced easily to the second portion of the duodenum and retroflexion was performed in the stomach. The esophagus had severe grade D erosive esophagitis of the distal 6 cm of the esophagus. There was a 5-cm hiatal hernia present. The stomach was otherwise unremarkable including retroflex views. The pylorus and first and second portions of the duodenum were normal. Biopsies were obtained from the distal esophagus. IMPRESSION: 1. Severe grade D erosive esophagitis of the distal 6 cm of the esophagus, biopsied. 2. 5 cm hiatal hernia. 3. Otherwise normal EGD. RECOMMENDATIONS: 1. Await histopathology. 2. Proton pump inhibitor twice daily. 3. Advance diet as tolerated. I will start with a mechanical soft diet. 4. I will sign off. Please call if GI can be of assistance. Job ID: [id number]
[2019-04-07] MEDS: Sodium Chloride 0.9% 1,000 ML IV SCH ×2 (05:19→17:09)
[2019-04-07 05:43] LABS: #Eosinphils 0.4 thou/uL (0.0-0.7); #Lymphocytes 1.2 thou/uL (1.20-3.40); #Monocytes 0.9 thou/uL (0.11-0.59); %Basophils 0.5 % (0.0-1.0); %Lymphocytes 13.1 % (21.0-51.0); %Monocytes 9.3 % (0.0-10.0); %Neutrophils 73.2 % (42.0-75.0); Hemoglobin 10.1 g/dL (12.0-16.0); Mean Corpuscular HGB CONC 33.4 g/dL (32.0-36.0); Mean Corpuscular Hemoglobin 33.5 pg (27.0-31.0); Mean Platelet Volume 8.1 fL (7.4-10.4); Platelet Count 253 thou/uL (130-400); RBC Distribution Width 11.9 % (11.5-14.5); Red Blood Cell (RBC) Count 3.02 mill/uL (4.20-5.40); White Blood Cell (WBC) Count 9.5 thou/uL (4.8-10.8)
[2019-04-07 06:08] LABS: ALT (SGPT) 17 U/L (8-55); AST (SGOT) 16 U/L (5-34); Albumin 3.2 g/dL (3.4-4.8); Alkaline Phosphatase 53 U/L (40-150); Anion Gap 9 mmol/L (10-20); BUN (Urea Nitrogen) 9 mg/dL (9.8-20.1); Bilirubin, Total 0.3 mg/dL (0.2-1.2); Calc. Creatinine Clearance 60 mL/min (70-130); Calcium 8.7 mg/dL (7.8-10.44); Carbon Dioxide 23 mmol/L (23-31); Chloride 109 mmol/L (98-107); Estimated GFR-MDRD 89; Globulin 2.5 g/dL (2.4-3.5); Glucose 93 mg/dL (83-110); Potassium 3.3 mmol/L (3.5-5.1); Protein, Total 5.7 g/dL (6.0-8.3); Sodium 138 mmol/L (136-145)
[2019-04-07] MEDS: Pantoprazole 40 MG VIAL IVP SCH ×2 (08:44→20:44)
[2019-04-07] MEDS: Potassium Chloride 20 MEQ TAB PO SCH (08:44)
--- NOTE | 2019-04-07 10:54 | PDOC.HOSPP ---
- Subjective Encounter Date: 04/07/19 Encounter Time: 10:50 Subjective: alert, mild chest discomfort - Objective Vital Signs & Weight: Vital Signs (12 hours) Temp Pulse Resp BP BP BP BP 04/07/19 07:35 98.5 F 71 18 154/81 H 156/75 H 161/74 H 04/07/19 04:00 98.2 F 73 18 155/76 H 158/71 H 04/06/19 23:52 98.3 F 86 18 169/75 H 160/70 H 150/67 H 147/70 H Pulse Ox 04/07/19 07:35 94 L 04/07/19 04:00 94 L 04/06/19 23:52 94 L Weight Weight 133 lb 9 oz I&O: 04/06/19 04/07/19 04/08/19 06:59 06:59 06:59 Intake Total 1650 2200 Balance 1650 2200 Result Diagrams: 04/07/19 05:01 04/07/19 05:01 ROS - Medication Medications: Active Medications Generic Name Dose Route Start Last Admin Trade Name Espinozaq PRN Reason Stop Dose Admin Donepezil HCl 5 mg 04/06/19 21:00 04/06/19 20:14 Aricept PO 5 mg HS MARY KATE Administration Sodium Chloride 1,000 mls @ 75 mls/hr 04/05/19 13:00 04/07/19 05:19 Normal Saline 0.9% IV 1,000 mls .[id number] MARY KATE Administration Ceftriaxone Sodium 1 gm/ 100 mls @ 200 mls/hr 04/05/19 15:00 04/06/19 14:30 Sodium Chloride IVPB 100 mls Q24HR MARY KATE Administration Losartan Potassium 50 mg 04/06/19 21:00 04/06/19 20:14 Cozaar PO 50 mg HS MARY KATE Administration Pantoprazole Sodium 40 mg 04/05/19 21:00 04/07/19 08:44 Protonix IVP 40 mg BID MARY KATE Administration Potassium Chloride 20 meq 04/07/19 09:00 04/07/19 08:44 K-Dur PO 20 meq DAILY MARY KATE Administration - Exam Neck: no JVD Heart: RRR, no murmur Respiratory: CTAB Gastrointestinal: soft, non-tender, normal bowel sounds Extremities: no edema Hosp A/P (1) Erosive esophagitis Code(s): K22.10 - ULCER OF ESOPHAGUS WITHOUT BLEEDING Status: Acute (2) GI bleeding Code(s): K92.2 - GASTROINTESTINAL HEMORRHAGE, UNSPECIFIED Status: Acute Qualifiers: GI bleed type/associated pathology: gastrointestinal hemorrhage with hematemesis Qualified Code(s): K92.0 - Hematemesis (3) Anemia, blood loss Code(s): D50.0 - IRON DEFICIENCY ANEMIA SECONDARY TO BLOOD LOSS (CHRONIC) Status: Acute (4) DM type 2 (diabetes mellitus, type 2) Status: Acute Qualifiers: Diabetes mellitus rn long term care insulin use: without senior care use Diabetes mellitus complication status: without complication Qualified Code(s): E11.9 - Type 2 diabetes mellitus without complications (5) Dyslipidemia Code(s): E78.5 - HYPERLIPIDEMIA, UNSPECIFIED Status: Chronic (6) Hypertension Code(s): I10 - ESSENTIAL (PRIMARY) HYPERTENSION Status: Chronic - Plan cont PPI bid serial CBC transfuse prn
[2019-04-07] MEDS: Donepezil HCl 5 MG TAB PO SCH (20:44)
[2019-04-07] MEDS: Losartan 25 MG TAB PO SCH (20:44)
[2019-04-08 04:37] VITALS: BP 170/72; TEMP 97.8
[2019-04-08 05:21] LABS: #Eosinphils 0.5 thou/uL (0.0-0.7); #Lymphocytes 1.7 thou/uL (1.20-3.40); #Monocytes 0.6 thou/uL (0.11-0.59); #Neutrophils 3.6 thou/uL (1.40-6.50); %Basophils 0.6 % (0.0-1.0); %Eosinophils 7.2 % (0.0-10.0); %Lymphocytes 25.8 % (21.0-51.0); %Monocytes 9.7 % (0.0-10.0); %Neutrophils 56.7 % (42.0-75.0); Hemoglobin 9.7 g/dL (12.0-16.0); Mean Corpuscular HGB CONC 33.7 g/dL (32.0-36.0); Mean Corpuscular Hemoglobin 33.6 pg (27.0-31.0); Mean Corpuscular Volume 99.6 fL (78.0-98.0); Mean Platelet Volume 8.1 fL (7.4-10.4); Platelet Count 255 thou/uL (130-400); RBC Distribution Width 11.9 % (11.5-14.5); Red Blood Cell (RBC) Count 2.89 mill/uL (4.20-5.40); White Blood Cell (WBC) Count 6.4 thou/uL (4.8-10.8)
[2019-04-08 05:43] LABS: ALT (SGPT) 17 U/L (8-55); AST (SGOT) 17 U/L (5-34); Albumin 3.1 g/dL (3.4-4.8); Alkaline Phosphatase 50 U/L (40-150); Anion Gap 8 mmol/L (10-20); BUN (Urea Nitrogen) 7 mg/dL (9.8-20.1); Bilirubin, Total 0.3 mg/dL (0.2-1.2); Calc. Creatinine Clearance 59 mL/min (70-130); Calcium 8.7 mg/dL (7.8-10.44); Carbon Dioxide 23 mmol/L (23-31); Chloride 111 mmol/L (98-107); Estimated GFR-MDRD 88; Globulin 2.4 g/dL (2.4-3.5); Glucose 84 mg/dL (83-110); Potassium 3.4 mmol/L (3.5-5.1); Protein, Total 5.5 g/dL (6.0-8.3); Sodium 139 mmol/L (136-145)
[2019-04-08] MEDS: Potassium Chloride 20 MEQ TAB PO SCH (09:12)
[2019-04-08] MEDS: Pantoprazole 40 MG VIAL IVP SCH (09:12)
[2019-04-08] MEDS: Sodium Chloride 0.9% 1,000 ML IV SCH (09:13)
--- NOTE | 2019-04-08 10:54 | DIS ---
DATE OF ADMISSION: 04/06/2019 DATE OF DISCHARGE: 04/08/2019 PRIMARY CARE PHYSICIAN: Dr. Suazo. DISPOSITION: Discharged to [facility]. FINAL DIAGNOSES: 1. Erosive esophagitis. 2. Gastrointestinal bleeding. 3. Acute posthemorrhagic anemia. 4. Diabetes mellitus type 2 without complications. 5. Hypertension. 6. Dyslipidemia. 7. Urinary tract infection. DISCHARGE MEDICATIONS: 1. Omnicef 300 mg p.o. b.i.d. for 7 days. 2. Protonix 40 mg p.o. b.i.d. for one month, then 40 mg a day. 3. Zofran oral dissolving tablet 8 mg p.o. q.6 hours p.r.n. 4. Tums 1000 mg a day. 5. Potassium chloride 20 mEq a day. 6. Losartan 50 mg a day. 7. Ferrous sulfate 325 mg a day. 8. Aricept 5 mg a day. 9. Aspirin 81 mg a day. Kuir-ikx-vfsvjgc medications. ALLERGIES: CODEINE; IODINE CONTAINING PRODUCTS; SULFA; HYDROCODONE; DARVOCET, NO LONGER AVAILABLE; SIMVASTATIN; AND TRAMADOL. CODE STATUS: Full. DIET: Diabetic. PENDING AT THE TIME OF DISCHARGE: Nothing. HOSPITAL COURSE: The patient admitted to [facility] to [facility] for substernal chest pain and coffee-grounds emesis. Initial laboratory revealed hemoglobin of 12.1, which subsequently dropped down to the 10 level. Her electrolytes were balanced. Liver profile was normal. She was seen by Dr. Jaya Mendenhall in consultation after abdominal pelvis CT, which revealed no acute abnormality. She was placed on a proton pump inhibitor. An EGD was done, which revealed severe erosive esophagitis, which was biopsied. Proton pump was advanced to twice a day. The contrary to what I have previously said, the biopsy results are pending. The patient feels better. She has had no further hematemesis. Her urine culture was no growth. She has been on Rocephin. She was on antibiotic when she came in. She will be discharged on the aforementioned Omnicef. CONSULTATIONS: Dr. Jaya Mendenhall, Gastroenterology. PROCEDURES: EGD on 04/06/2019. She had been discharged back to [facility] for followup with Dr. Suazo. She will need in 1 week a CBC. She needs to be seen in followup by Dr. Suazo in 1 week. Job ID: [id number] MTDD
--- NOTE | 2019-04-10 14:59 | EKG ---
Test Reason : VOMITING Blood Pressure : / mmHG Vent. Rate : 085 BPM Atrial Rate : 085 BPM P-R Int : 128 ms QRS Dur : 084 ms QT Int : 362 ms P-R-T Axes : 059 -04 097 degrees QTc Int : 430 ms Normal sinus rhythm Nonspecific T wave abnormality Abnormal ECG Confirmed by NILE KO, IDANIA ([id number]), technical editor VALERI HUSSEIN ([id number]) on 04/10/2019 2:58:41 PM Referred By: MD DUARTE Confirmed By:IADNIA DOWD MD
== END 2019-04-08 15:36 | DRG 381 ==
LOC: ERS 06:23 → ERHOLD 07:48 → T4-A 18:13 → OBSVTOIN 04-06 11:07
PROVIDERS: ADMIT Internal Medicine; ATTEND Internal Medicine
PROC: 0DB38ZX Excision of Lower Esophagus, Via Natural or Artificial Opening Endoscopic, Diagnostic (ICD-10-PCS; principal; 2019-04-06)
DX: K22.11 Ulcer of esophagus with bleeding (principal); D62 Acute posthemorrhagic anemia; N39.0 Urinary tract infection, site not specified; J98.11 Atelectasis; K21.9 Gastro-esophageal reflux disease without esophagitis; K44.9 Diaphragmatic hernia without obstruction or gangrene; E78.5 Hyperlipidemia, unspecified; I12.9 Hypertensive chronic kidney disease with stage 1 through stage 4 chronic kidney disease, or unspecified chronic kidney disease; E11.22 Type 2 diabetes mellitus with diabetic chronic kidney disease; F41.9 Anxiety disorder, unspecified; F02.80 Dementia in other diseases classified elsewhere, unspecified severity, without behavioral disturbance, psychotic disturbance, mood disturbance, and anxiety; N18.9 Chronic kidney disease, unspecified; G30.9 Alzheimer's disease, unspecified; E83.52 Hypercalcemia; Z87.81 Personal history of (healed) traumatic fracture; Z88.1 Allergy status to other antibiotic agents; Z88.2 Allergy status to sulfonamides; Z88.8 Allergy status to other drugs, medicaments and biological substances; Z79.4 Long term (current) use of insulin; Z91.041 Radiographic dye allergy status
CPT/HCPCS: 36415; 36416; 51701; 71045; 74176; 80048; 80053; 81003; 81015; 82274; 82550; 82728; 83540; 83550; 83605; 83690; 83880; 84484; 85025; 86850; 86900; 86901; 87040; 87086; 88305; 88312; 88313; 93005; 96361; 96365; 96375; C9113; J0696; J1956; J2270; J2405; J3490

== ENCOUNTER 2019-04-10 08:45 | Emergency (ER) | payer MEDICARE, OTHER ==
[2019-04-10 09:33] LABS: #Basophils 0.1 thou/uL (0.0-0.2); #Eosinphils 0.5 thou/uL (0.0-0.7); #Lymphocytes 1.6 thou/uL (1.20-3.40); #Monocytes 0.5 thou/uL (0.11-0.59); #Neutrophils 5.3 thou/uL (1.40-6.50); %Basophils 0.8 % (0.0-1.0); %Eosinophils 5.7 % (0.0-10.0); %Lymphocytes 20.2 % (21.0-51.0); %Monocytes 6.7 % (0.0-10.0); %Neutrophils 66.6 % (42.0-75.0); Mean Corpuscular HGB CONC 34.3 g/dL (32.0-36.0); Mean Corpuscular Volume 99.1 fL (78.0-98.0); Platelet Count 303 thou/uL (130-400); RBC Distribution Width 12.2 % (11.5-14.5); Red Blood Cell (RBC) Count 3.24 mill/uL (4.20-5.40); White Blood Cell (WBC) Count 7.9 thou/uL (4.8-10.8)
--- NOTE | 2019-04-10 09:41 | RAD ---
Portable chest: HISTORY: Chest pain COMPARISON: 04/06/2019 FINDINGS:Mild cardiomegaly. Mild vascular congestion. Small bilateral effusions. Atelectasis and/or i nfiltrate left lung base, similar to prior exam. IMPRESSION:Mild vascular congestion. Small effusions and left basilar atelectasis.
[2019-04-10 09:56] LABS: ALT (SGPT) 19 U/L (8-55); AST (SGOT) 15 U/L (5-34); Albumin 3.8 g/dL (3.4-4.8); Alkaline Phosphatase 60 U/L (40-150); Anion Gap 12 mmol/L (10-20); BUN (Urea Nitrogen) 10 mg/dL (9.8-20.1); Bilirubin, Total 0.2 mg/dL (0.2-1.2); CK (CPK) 44 U/L (29-168); Calc. Creatinine Clearance 0 mL/min (70-130); Calcium 9.6 mg/dL (7.8-10.44); Carbon Dioxide 23 mmol/L (23-31); Chloride 110 mmol/L (98-107); Estimated GFR-MDRD 77; Globulin 2.6 g/dL (2.4-3.5); Glucose 94 mg/dL (83-110); Potassium 3.9 mmol/L (3.5-5.1); Protein, Total 6.4 g/dL (6.0-8.3); Sodium 141 mmol/L (136-145)
--- NOTE | 2019-04-10 10:43 | CT ---
CT CHEST WITHOUT CONTRAST: CT ABDOMEN WITHOUT CONTRAST: CT PELVIS WITHOUT CONTRAST: INDICATIONS: Chest and abdominal pain. COMPARISON: CT abdomen and pelvis from 04/05/2019. TECHNIQUE: Axial tomograms obtained without IV enhancement. Oral contrast was not administered. FINDINGS: Images through the lung bases again show small bilateral pleural effusions, which have increased slig htly since the 04/05/2019 exam. Mild bibasilar atelectasis is again noted, slightly more prominent o n the right. The liver, spleen, and pancreas remain unremarkable. Post cholecystectomy clips are again seen. A fixed sliding diaphragmatic hernia is again seen and was described previously. The adrenal glands and kidneys are unremarkable. No hydronephrosis. The urinary bladder is unremark able. Small bowel loops are of normal caliber. An appendix is not identified. There is diverticulosis of the colon without CT evidence of diverticulitis. Images through the pelvis show an unremarkable uterus and adnexae. Aorta is of normal caliber. Osse ous structures are unremarkable with internal fixation of the right hip again noted. IMPRESSION: 1. Small pleural effusions and bibasilar atelectasis. 2. Fixed diaphragmatic hernia. 3. No acute intraabdominal process. 4. No interval change from recent examination. POS: [facility]
[2019-04-10 12:46] LABS: Bilirubin Negative (Negative); Blood, Urine 1+ (Negative); Clarity Clear (Clear); Glucose, Urine (Dipstick) Normal (Negative); Leukocyte Negative Leu/uL (Negative); Nitrite Negative (Negative); Protein, Urine (Dipstick) 10 mg/dL (Neg-Trace); Squamous Epithelial 0-3 HPF (0-3); Urobilinogen Normal mg/dL (Less than 2); WBC/HPF 0-3 HPF (0-3)
[2019-04-10 12:47] LABS: Bacteria/HPF 1+ HPF (None Seen)
[2019-04-10 13:35] LABS: Troponin I 0.011 ng/mL (< 0.028)
== END 2019-04-10 14:42 | disposition home or self-care (01) ==
LOC: ERS 08:45
DX: R07.9 Chest pain, unspecified (principal); R10.13 Epigastric pain; R10.32 Left lower quadrant pain; E78.00 Pure hypercholesterolemia, unspecified; E78.5 Hyperlipidemia, unspecified; I12.9 Hypertensive chronic kidney disease with stage 1 through stage 4 chronic kidney disease, or unspecified chronic kidney disease; N18.3 Chronic kidney disease, stage 3 (moderate); K21.9 Gastro-esophageal reflux disease without esophagitis; G30.9 Alzheimer's disease, unspecified; F02.80 Dementia in other diseases classified elsewhere, unspecified severity, without behavioral disturbance, psychotic disturbance, mood disturbance, and anxiety; F41.9 Anxiety disorder, unspecified; Z79.899 Other long term (current) drug therapy; Z79.82 Long term (current) use of aspirin
CPT/HCPCS: 36415; 71045; 74176; 80053; 81003; 81015; 82550; 83880; 84484; 85025; 86850; 86900; 86901; 93005

== ENCOUNTER 2020-06-20 08:22 | Inpatient (IN) | payer MEDICARE, OTHER, MEDICAID ==
[2020-06-20 08:52] LABS: Hemoglobin 17.3 g/dL (12.0-16.0); Mean Corpuscular HGB CONC 33.8 g/dL (32.0-36.0); Mean Corpuscular Hemoglobin 33.4 pg (27.0-31.0); Mean Corpuscular Volume 98.8 fL (78.0-98.0); Mean Platelet Volume 9.6 fL (7.4-10.4); Platelet Count 307 thou/uL (130-400); Red Blood Cell (RBC) Count 5.18 mill/uL (4.20-5.40); White Blood Cell (WBC) Count 17.2 thou/uL (4.8-10.8)
[2020-06-20] MEDS ORDERED: Acetaminophen 325 MG Suppository ONE (08:52)
[2020-06-20 09:12] LABS: Band 17 % (5-11); Lymphocytes 8 % (21-51); MDiff Complete? YES; Monocytes 3 % (0-10); Neutrophil 72 % (42-75); Platelet Morphology Comment Appears Adequate; RBC Morphology Normal
[2020-06-20] MEDS ORDERED: Dexamethasone 10 MG/ML VIAL ONE (09:16)
[2020-06-20] MEDS ORDERED: Cefepime 2 GM VIAL ONE (09:16)
[2020-06-20 09:29] LABS: ALT (SGPT) 41 U/L (8-55); AST (SGOT) 28 U/L (5-34); Albumin 3.8 g/dL (3.4-4.8); Alkaline Phosphatase 62 U/L (40-110); Anion Gap 20 mmol/L (10-20); BUN (Urea Nitrogen) 45 mg/dL (9.8-20.1); Bilirubin, Total 0.5 mg/dL (0.2-1.2); Calc. Creatinine Clearance 0 mL/min (70-130); Calcium 9.9 mg/dL (7.8-10.44); Carbon Dioxide 19 mmol/L (23-31); Chloride 123 mmol/L (98-107); Estimated GFR-MDRD 34; Globulin 3.6 g/dL (2.4-3.5); Glucose 235 mg/dL (83-110); Potassium 3.7 mmol/L (3.5-5.1); Protein, Total 7.4 g/dL (6.0-8.3); Sodium 158 mmol/L (136-145)
[2020-06-20 09:29] LABS: Bilirubin Negative (Negative); Blood, Urine Moderate (Negative); Glucose, Urine (Dipstick) Negative (Negative); Ketone, Urine Trace mg/dL (Negative); Leukocyte Moderate (Negative); Nitrite Negative (Negative); Protein, Urine (Dipstick) > or equal to 300 mg/dL (Neg-Trace); Urobilinogen 0.2 mg/dL (Less than 2)
[2020-06-20] MEDS ORDERED: Vancomycin 1.5 GRAM/300 ML BAG 1.5 GM in Premix Bag 1 BAG IVPB SCH (09:30)
[2020-06-20 09:34] LABS: CK (CPK) 32 U/L (29-168); Lipase 50 U/L (8-78)
[2020-06-20 09:34] LABS: Clarity Turbid (Clear)
[2020-06-20 09:43] LABS: Bacteria/HPF 4+ HPF (None Seen); Squamous Epithelial 0-3 HPF (0-3); WBC/HPF Greater Than 50 HPF (0-3)
--- NOTE | 2020-06-20 09:51 | RAD ---
EXAM: Single view of the chest HISTORY: Covid positive COMPARISON: 04/10/2019 FINDINGS: Single view of the chest shows a normal sized cardiomediastinal silhouette. Opacity seen a chapin the left hemidiaphragm. This is stable compared to the prior exam and may represent scarring or an infiltrate. No pleural effusion is seen. Atherosclerotic calcifications are seen in the aorta. No acute osseous abnormality. IMPRESSION: Left basilar scarring versus infiltrate
[2020-06-20 09:53] LABS: CKMB 0.5 ng/mL (0-6.6)
[2020-06-20] MEDS ORDERED: Aspirin 325 MG TAB ONE (10:04)
[2020-06-20] MEDS ORDERED: Enoxaparin Sodium 60 MG/0.6 ML SYRINGE ONE (10:04)
[2020-06-20] MEDS ORDERED: Aspirin 300 MG Suppository ONE (10:04)
[2020-06-20] MEDS ORDERED: MEROPENEM 1 GM/50 ML 1 GM in Premix Bag 1 BAG IVPB SCH (10:30)
--- NOTE | 2020-06-20 10:36 | PDOC.HHP ---
Hospitalist HPI - History of Present Illness Altered mental status History of Present Illness: Visit 89-year-old female patient, [facility] resident with dementia who was brought in on account of altered mental status, fevers and increasing oxygen requirement for the past couple of days. She has a probable diagnosis of Covid about 10 days ago At presentation Vitals were BP 100/64, pulse 126, oxygen saturation 97% on 4 L oxygen, temperature was one 1.8. Ambulance. Here it was a Patient is only Afghan-speaking however she would not communicate or answer any questions status with water main installer helper was not useful. She was however awake and apparently alert Labs showed troponin 0 0.075, UA showed turbid urine, with leukocytosis, protein 4+ and WBC greater than 50. Sodium was 158, bicarb 19 creatinine 1.45 from a baseline of 0.75 in 03/2019. WBC was 17.2 with 17 bands. Hemoglobin 17.3 and platelet count was 307. Lactic acid was 2.3. With D-dimer at 4.07. Chest x-ray showed left basal atelectasis versus infiltrate. EKG showed sinus tachycardia with no concerning ST or T-segment changes. She was given aspirin 3 to 4 mg, meropenem 1 g LR 1 L and normal saline 1 L, Decadron 10 mg Tylenol 325 and cefepime 2 g. Hospitalist team was consulted to admit. Hospitalist ROS - Review of Systems ROS unobtainable: due to mental status - Exam General - other findings: Awake, not answering questions ENT: normocephalic atraumatic Heart: RRR, no murmur, no gallops, normal peripheral pulses Respiratory: no wheezes, no rales Extremities: no cyanosis, no clubbing, no edema Psychiatric - other findings: Awake, apparently alert Hospitalist Results - Labs Result Diagrams: 06/20/20 08:26 06/20/20 21:27 Lab results: WBC 17.2 thou/uL (4.8-10.8) H 06/20/20 08:26 Hgb 17.3 g/dL (12.0-16.0) H 06/20/20 08:26 Hct 51.2 % (36.0-47.0) H 06/20/20 08:26 MCV 98.8 fL (78.0-98.0) H 06/20/20 08:26 Plt Count 307 thou/uL (130-400) 06/20/20 08:26 Band Neuts % (Manual) 17 % (5-11) H 06/20/20 08:26 Sodium 158 mmol/L (136-145) H 06/20/20 08:26 Potassium 3.7 mmol/L (3.5-5.1) 06/20/20 08:26 Chloride 123 mmol/L (98-107) H 06/20/20 08:26 Carbon Dioxide 19 mmol/L (23-31) L 06/20/20 08:26 BUN 45 mg/dL (9.8-20.1) H 06/20/20 08:26 Creatinine 1.45 mg/dL (0.6-1.1) H 06/20/20 08:26 Glucose 235 mg/dL (83-110) H 06/20/20 08:26 Lactic Acid 2.3 mmol/L (0.5-2.2) H 06/20/20 08:26 Calcium 9.9 mg/dL (7.8-10.44) 06/20/20 08:26 Total Bilirubin 0.5 mg/dL (0.2-1.2) 06/20/20 08:26 AST 28 U/L (5-34) 06/20/20 08:26 ALT 41 U/L (8-55) 06/20/20 08:26 Alkaline Phosphatase 62 U/L (40-110) 06/20/20 08:26 Creatine Kinase 32 U/L (29-168) 06/20/20 08:26 CK-MB (CK-2) 0.5 ng/mL (0-6.6) 06/20/20 08:26 Troponin I 0.075 ng/mL (< 0.028) H 06/20/20 08:26 B-Natriuretic Peptide 32.5 pg/mL (0-100) 06/20/20 08:26 Serum Total Protein 7.4 g/dL (6.0-8.3) 06/20/20 08:26 Albumin 3.8 g/dL (3.4-4.8) 06/20/20 08:26 Lipase 50 U/L (8-78) 06/20/20 08:26 Urine Ketones Trace mg/dL (Negative) A 06/20/20 09:16 Urine Blood Moderate (Negative) A 06/20/20 09:16 Urine Nitrite Negative (Negative) 06/20/20 09:16 Ur Leukocyte Esterase Moderate (Negative) H 06/20/20 09:16 Urine RBC 4-6 HPF (0-3) A 06/20/20 09:16 Urine WBC Greater Than 50 HPF (0-3) A 06/20/20 09:16 Ur Squamous Epith Cells 0-3 HPF (0-3) 06/20/20 09:16 Urine Bacteria 4+ HPF (None Seen) A 06/20/20 09:16 Hospitalist H&P A/P - Plan Plan: This is an 89-year-old female patient With a history of dementia, hypercholesterolemia hypertension who presented here on account of fevers, increasing oxygen requirement and altered mental status and known to be Covid positive. Acute hypoxic respiratory failure Secondary to Covid Currently saturation 94 on 3 L Continue oxygen as needed Pulmonary consult if deteriorates. Pneumonia due to Covid Covid +10 days ago Left infiltrate noted on chest x-ray Patient refused CT scan Started on Decadronwe will continue Receive NovoLogwe will continue Received Lovenoxwe will continue Hold antibiotics No requirement for remdesivir or plasma at this moment Continue monitoring. Pneumonia Started on meropenem and cefepime We will discontinue those Start ceftriaxone and azithromycin As needed oxygen Acute encephalopathy Secondary to dementia/Covid Hypernatremia Likely secondary to dehydration sodium was 148 Received IV fluids Repeat BMP Start D5 history remains high. History of dementia Continue monitoring vte prophylaxis- lovenox Code status- full code
[2020-06-20 11:59] LABS: Lactic Acid 1.8 mmol/L (0.5-2.2)
[2020-06-20 12:07] LABS: Troponin I 0.086 ng/mL (< 0.028)
[2020-06-20] MEDS ORDERED: Heparin 1,000 UNITS/ML VIAL ONE (12:19)
[2020-06-20 15:25] LABS: Anion Gap 14 mmol/L (10-20); BUN (Urea Nitrogen) 42 mg/dL (9.8-20.1); Calc. Creatinine Clearance 0 mL/min (70-130); Calcium 8.8 mg/dL (7.8-10.44); Carbon Dioxide 19 mmol/L (23-31); Estimated GFR-MDRD 40; Glucose 257 mg/dL (83-110); Potassium 3.1 mmol/L (3.5-5.1); Sodium 157 mmol/L (136-145)
[2020-06-20 15:27] LABS: Chloride 127 mmol/L (98-107)
[2020-06-20] MEDS ORDERED: Dextrose 5% in Water 1,000 ML IV PRN (15:36)
[2020-06-20] MEDS: Dextrose 5% in Water 1,000 ML IV SCH (16:07)
[2020-06-20 18:40] LABS: Potassium 3.4 mmol/L (3.5-5.1); Sodium 150 mmol/L (136-145)
[2020-06-20 18:41] LABS: Calcium 8.8 mg/dL (7.8-10.44); Glucose 333 mg/dL (83-110)
[2020-06-20 18:43] LABS: Anion Gap 16 mmol/L (10-20); Carbon Dioxide 11 mmol/L (23-31)
[2020-06-20 18:45] LABS: Calc. Creatinine Clearance 0 mL/min (70-130); Estimated GFR-MDRD 37
[2020-06-20 18:46] LABS: BUN (Urea Nitrogen) 46 mg/dL (9.8-20.1); Chloride 126 mmol/L (98-107)
[2020-06-20] MEDS ORDERED: Enoxaparin Sodium 60 MG/0.6 ML SYRINGE SC SCH (21:00)
[2020-06-20] MEDS: Enoxaparin Sodium 40 MG/0.4 ML SYRINGE SC SCH (21:39)
[2020-06-20] MEDS: HumaLOG 300 UNITS/3 ML VIAL SC PRN (21:40)
[2020-06-20 22:02] LABS: Anion Gap 14 mmol/L (10-20); BUN (Urea Nitrogen) 46 mg/dL (9.8-20.1); Calc. Creatinine Clearance 29 mL/min (70-130); Calcium 8.5 mg/dL (7.8-10.44); Carbon Dioxide 19 mmol/L (23-31); Chloride 124 mmol/L (98-107); Estimated GFR-MDRD 35; Glucose 388 mg/dL (83-110); Sodium 154 mmol/L (136-145)
[2020-06-21] MEDS: Dextrose 5% in Water 1,000 ML IV SCH ×3 (00:57→18:31)
[2020-06-21] MEDS ORDERED: Acetaminophen 650 MG Suppository PR SCH (03:30)
[2020-06-21 05:24] LABS: Anion Gap 17 mmol/L (10-20); BUN (Urea Nitrogen) 38 mg/dL (9.8-20.1); Calc. Creatinine Clearance 36 mL/min (70-130); Calcium 8.9 mg/dL (7.8-10.44); Carbon Dioxide 16 mmol/L (23-31); Chloride 119 mmol/L (98-107); Estimated GFR-MDRD 45; Glucose 263 mg/dL (83-110); Potassium 3.1 mmol/L (3.5-5.1); Sodium 149 mmol/L (136-145)
[2020-06-21 05:57] LABS: Hemoglobin 15.1 g/dL (12.0-16.0); Mean Corpuscular HGB CONC 32.7 g/dL (32.0-36.0); Mean Corpuscular Hemoglobin 32.7 pg (27.0-31.0); Mean Platelet Volume 9.7 fL (7.4-10.4); Platelet Count 236 thou/uL (130-400); Red Blood Cell (RBC) Count 4.63 mill/uL (4.20-5.40); White Blood Cell (WBC) Count 20.3 thou/uL (4.8-10.8)
[2020-06-21] MEDS: HumaLOG 300 UNITS/3 ML VIAL SC PRN ×4 (06:06→22:06)
[2020-06-21 06:32] LABS: Band 26 % (5-11); Lymphocytes 4 % (21-51); MDiff Complete? YES; Myelocyte 2 % (0-0); Neutrophil 68 % (42-75)
[2020-06-21] MEDS ORDERED: FLU VACC QS2020-21(65YR UP)/PF 240 MCG/0.7 ML SYRINGE IM ONE (09:00)
[2020-06-21] MEDS: Enoxaparin Sodium 40 MG/0.4 ML SYRINGE SC SCH ×2 (09:07→22:01)
[2020-06-21] MEDS: Dexamethasone 10 MG in Sodium Chloride 0.9% 50 ML IVPB SCH (09:07)
[2020-06-21] MEDS: Acetaminophen 650 MG Suppository PR PRN (09:45)
--- NOTE | 2020-06-21 15:05 | PDOC.HOSPP ---
- Subjective Encounter Date: 06/21/20 Encounter Time: 09:20 Subjective: Patient seen for follow-up regarding COVID-19 pneumonia. She is sleepy but arousable, not answering questions. Could not complete review of systems. - Objective Vital Signs & Weight: Vital Signs (12 hours) Temp Pulse Resp BP Pulse Ox 06/21/20 11:15 100.9 F H 98 20 168/78 H 95 06/21/20 10:38 96 06/21/20 10:15 100.9 F H 06/21/20 09:15 103.3 F H 113 H 23 H 129/70 94 L 06/21/20 04:17 99.0 F 06/21/20 03:47 100.6 F H 06/21/20 03:09 100.6 F H 116 H 22 H 177/84 H 97 Weight Weight 146 lb 4.8 oz I&O: 06/20/20 06/21/20 06/22/20 06:59 06:59 06:59 Intake Total 1159 Output Total 600 Balance 559 Result Diagrams: 06/21/20 04:56 06/21/20 04:56 Additional Labs: Accuchecks 06/21/20 06/20/20 06/20/20 11:11 20:33 17:04 POC Glucose 196 H 344 H 253 H Labs and MAR reviewed by me EKG Reviewed by me: Yes (Telemetry: Sinus tachycardia) Hospitalist ROS - Review of Systems ROS unobtainable: due to mental status - Medication Medications: Active Medications Generic Name Dose Route Start Last Admin Trade Name Freq PRN Reason Stop Dose Admin Acetaminophen 650 mg 06/21/20 09:30 06/21/20 09:45 Acetaminophen 650 Mg Suppository SC 650 mg Q8H PRN Administration Headache/Fever or Pain Enoxaparin Sodium 40 mg 06/20/20 21:00 06/21/20 09:07 Enoxaparin Sodium 40 Mg/0.4 Ml Syringe SC 40 mg 0900,2100 MARY KATE Administration Dexamethasone 10 mg/ Sodium 51 mls @ 100 mls/hr 06/21/20 09:00 06/21/20 09:07 Chloride IVPB 51 mls DAILY MARY KATE Administration Dextrose/Water 1,000 mls @ 100 mls/hr 06/20/20 15:45 06/21/20 11:59 D5w IV Not Given .Q10H MARY KATE Insulin Human Lispro 0 units 06/20/20 15:36 06/21/20 11:15 Humalog 300 Units/3 Ml Vial SC 2 unit .MILD SLIDING SCALE PRN Administration Mild Correctional Scale Sodium Chloride 10 ml 06/20/20 21:00 06/21/20 09:07 Flush - Normal Saline 10 Ml Syringe IVF 10 ml Q12HR MARY KATE Administration - Exam General Appearance: NAD Eye: anicteric sclera ENT: normocephalic atraumatic Neck: supple Heart - other findings: S1, S2, regular, tachycardic Respiratory: CTAB Gastrointestinal: soft Extremities: no edema Skin: no rashes Musculoskeletal: no muscle wasting Psychiatric: normal affect Hosp A/P (1) Pneumonia due to COVID-19 virus Code(s): U07.1 - COVID-19; J12.89 - OTHER VIRAL PNEUMONIA Status: Acute (2) Acute respiratory failure with hypoxia Code(s): J96.01 - ACUTE RESPIRATORY FAILURE WITH HYPOXIA Status: Acute (3) DM type 2 (diabetes mellitus, type 2) Status: Chronic Qualifiers: Diabetes mellitus intermediate insulin use: without termite exterminator use Diabetes mellitus complication status: without complication Qualified Code(s): E11.9 - Type 2 diabetes mellitus without complications (4) Dyslipidemia Code(s): E78.5 - HYPERLIPIDEMIA, UNSPECIFIED Status: Chronic (5) Hypertension Code(s): I10 - ESSENTIAL (PRIMARY) HYPERTENSION Status: Chronic - Plan Patient is on high flow oxygen. Continue dexamethasone. Start vitamin C and zinc. Continue insulin sliding scale and Accu-Cheks. Continue ceftriaxone and azithromycin. Sodium has improved to 149. Replace potassium.
[2020-06-21] MEDS ORDERED: Polyvinyl Alcohol 1.4%/Povidone 0.6% Opth Drops EA EYE PRN (15:09)
[2020-06-21] MEDS: Ascorbic Acid 500 mg Chewable Tablet PO SCH ×2 (15:43→15:58)
[2020-06-21] MEDS: Zinc Sulfate 220 MG CAP PO SCH ×2 (15:44→15:58)
[2020-06-21] MEDS: Donepezil HCl 5 MG TAB PO SCH ×2 (22:01→22:27)
[2020-06-22] MEDS: Dextrose 5% in Water 1,000 ML IV SCH ×2 (04:11→15:19)
[2020-06-22] MEDS: Ferrous Sulfate 325 MG TAB PO SCH (08:28)
[2020-06-22] MEDS: Enoxaparin Sodium 40 MG/0.4 ML SYRINGE SC SCH ×2 (08:28→21:29)
[2020-06-22] MEDS: Ascorbic Acid 500 mg Chewable Tablet PO SCH (08:29)
[2020-06-22] MEDS: Cholecalciferol 1,000 UNITS (25 MCG) TAB PO SCH (08:29)
[2020-06-22] MEDS: Amlodipine 10 MG TAB PO SCH (08:29)
[2020-06-22] MEDS: Dexamethasone 10 MG in Sodium Chloride 0.9% 50 ML IVPB SCH (08:29)
[2020-06-22] MEDS: Zinc Sulfate 220 MG CAP PO SCH (08:30)
[2020-06-22] MEDS: Acetaminophen 650 MG Suppository PR PRN (08:45)
[2020-06-22] MEDS: HumaLOG 300 UNITS/3 ML VIAL SC PRN ×3 (12:02→21:57)
--- NOTE | 2020-06-22 13:43 | PQF ---
CLINICAL DOCUMENTATION CLARIFICATION FORM: Dear Dr. Lott Date: 06/22/2020 Please exercise your independent, professional judgment in responding to the clarification form. Clinical indicators are provided on the bottom of this form for your review. Please check appropriate box(s): [ ] Sepsis due to (please specify): [ ] COVID-19 with associated Viral Pneumonia [ ] Simple Pneumonia [ ] UTI [ ] No sepsis, localized infection only (please specify): [ ] COVID-19 with associated Viral Pneumonia [ ] Simple Pneumonia [ ] UTI [ ] Other diagnosis [ ] Unable to determine For continuity of documentation, please document condition throughout progress notes and discharge summary. Thank You. CLINICAL INDICATORS - SIGNS / SYMPTOMS / LABS / RESULTS AND LOCATION IN EMR *ED 06/20: * Vital Signs: O2 Sat 96-98% on 4L to High flow Oxygen RR 21-35 Pulse 100s-110s Temp (max) 102.2 (Rectal) * Altered mental status most likely from metabolic encephalopathy. * ... Concerns for possible secondary bacterial pneumonia. * Diagnosis . Covid pneumonia with hypoxia ... Sepsis, UTI *LAB (EMR): WBC Neutrophils % Band Neuts % Lactic Acid CRP 06/20 17.2 72 17 1.8 - 2.3 10.45 06/21 20.3 68 26 *H&P 06/20([facility]): * Brought in on account of altered mental status, fevers and increasing oxygen requirement for the past couple of days. * Acute hypoxic respiratory failure * Pneumonia due to Covid * Pneumonia Started on meropenem and cefepime . We will discontinue those . Start ceftriaxone and azithromycin. * Acute encephalopathy Secondary to dementia/covid *Adult Assessment Section 1 of 3 06/20 at 1355: Symptoms Incontinent *Microbiology 06/20 (EMR): * Urine Culture- Preliminary Gram negative farzad Presumptive Enterococcus sp. * Blood Culture- Preliminary No growth at 48 hours RISK FACTORS / RESULTS AND LOCATION IN EMR *ED 06/20: * 89-year-old * Covid positive * Medical history UTI * long term * Covid pneumonia with hypoxia * UTI TREATMENTS / RESULTS AND LOCATION IN EMR *ED 06/20: Meropenem, Lactate Ringers 1L IV, Vancomycin IV, Cefepime IV, NS IV 1L, Decadron IV *H&P 06/20 ([facility]): Started on meropenem and cefepime . We will discontinue those . Start ceftriaxone and azithromycin As needed oxygen *LAB (EMR): Urinalysis 06/20, CBC 06/20, 06/21, Lactic Acid 06/20 x2, CRP 06/20 *Microbiology 06/20 (EMR): Urine Culture, Blood Culture x2 Thank you, Payal CDS/Tufter Signature: Payal Ceja RN, CDS Phone #: [phone] [email or web address] This is a permanent part of the Medical Record [facility]
[2020-06-22] MEDS ORDERED: MEROPENEM 1 GM/50 ML 1 GM in Premix Bag 1 BAG IVPB SCH (14:00)
[2020-06-22] MEDS: D5W-AA 4.25% with LYTES 1,000 ML IV SCH (14:19)
[2020-06-22 16:50] LABS: Actual Bicarbonate (HCO3a) 18.7 mEq/L (22-28); Base Excess (BEa) -4.4 mEq/L (-2.0 to +3.0); Calcium, Ionized (arterial) 1.18 mmol/L (1.12-1.30); Carboxyhemoglobin (COHb) 0.3 gm% (0.0-3.0); Hemoglobin (Hb) 12.7 g/dL (12.0-16.0); Potassium - ABG Lab 3.04 mmol/L (3.70-5.30); pH, Arterial 7.43 (7.35-7.45)
[2020-06-22 16:53] LABS: O2 Tension (PaO2), arterial 51.3 mmHg (> 60.0)
[2020-06-22 16:54] LABS: Puncture Site LR
--- NOTE | 2020-06-22 17:07 | PDOC.HOSPP ---
- Subjective Encounter Date: 06/22/20 Encounter Time: 08:30 Subjective: Patient seen for follow-up regarding sepsis due to COVID-19 pneumonia. Patient is nonverbal, could not complete review of systems. - Objective Vital Signs & Weight: Vital Signs (12 hours) Temp Pulse Resp BP Pulse Ox 06/22/20 11:35 98.4 F 80 26 H 117/57 L 94 L 06/22/20 08:45 101 F H 06/22/20 08:34 101 F H 90 28 H 132/63 91 L Weight Admit Weight 146 lb 4.8 oz Weight 146 lb 4.8 oz I&O: 06/21/20 06/22/20 06/23/20 06:59 06:59 06:59 Intake Total 1159 1200 Output Total 600 500 Balance 559 700 Result Diagrams: 06/21/20 04:56 06/21/20 04:56 Additional Labs: Accuchecks 06/22/20 06/21/20 06/21/20 04:26 22:05 17:18 POC Glucose 184 H 279 H 294 H I reviewed patient's labs and MAR EKG Reviewed by me: Yes (Telemetry: NSR) Hospitalist ROS - Review of Systems ROS unobtainable: due to mental status - Medication Medications: Active Medications Generic Name Dose Route Start Last Admin Trade Name Freq PRN Reason Stop Dose Admin Acetaminophen 650 mg 06/21/20 09:30 06/22/20 08:45 Acetaminophen 650 Mg Suppository [place] 650 mg Q8H PRN Administration Headache/Fever or Pain Amlodipine Besylate 10 mg 06/22/20 09:00 06/22/20 08:29 Amlodipine 10 Mg Tab PO Not Given DAILY MARY KATE Ascorbic Acid 1,000 mg 06/22/20 09:00 06/22/20 08:29 Ascorbic Acid 500 Mg Chewable Tablet PO Not Given DAILY MARY KATE Cholecalciferol 2,000 units 06/22/20 09:00 06/22/20 08:29 Cholecalciferol 1,000 Units (25 Mcg) Tab PO Not Given DAILY MARY KATE Donepezil HCl 5 mg 06/21/20 21:00 06/21/20 22:27 Donepezil Hcl 5 Mg Tab PO Not Given HS MARY KATE Enoxaparin Sodium 40 mg 06/20/20 21:00 06/22/20 08:28 Enoxaparin Sodium 40 Mg/0.4 Ml Syringe SC 40 mg 0900,2100 MARY KATE Administration Ferrous Sulfate 325 mg 06/22/20 08:00 06/22/20 08:28 Ferrous Sulfate 325 Mg Tab PO Not Given QAM-WM MARY KATE Dexamethasone 10 mg/ Sodium 51 mls @ 100 mls/hr 06/21/20 09:00 06/22/20 08:29 Chloride IVPB 51 mls DAILY MARY KATE Administration Amino Acids/Electrolytes/Dextrose 1,000 mls @ 41.667 mls/hr 06/22/20 14:00 06/22/20 14:19 Clinimix E 4.25/5 IV 1,000 mls INF MARY KATE Administration Insulin Human Lispro 0 units 06/20/20 15:36 06/22/20 12:02 Humalog 300 Units/3 Ml Vial SC 2 unit .MILD SLIDING SCALE PRN Administration Mild Correctional Scale Pantoprazole Sodium 40 mg 06/22/20 09:00 06/22/20 08:29 Pantoprazole 40 Mg Tab PO Not Given DAILY MARY KATE Sodium Chloride 10 ml 06/20/20 21:00 06/22/20 08:30 Flush - Normal Saline 10 Ml Syringe IVF 10 ml Q12HR MARY KATE Administration Zinc Sulfate 220 mg 06/22/20 09:00 06/22/20 08:30 Zinc Sulfate 220 Mg Cap PO Not Given DAILY MARY KATE - Exam Eye: anicteric sclera ENT: dry oral mucosa Neck: supple Heart: RRR Respiratory: CTAB Gastrointestinal: soft Skin: no rashes Psychiatric - other findings: Unable to assess Hosp A/P (1) Sepsis due to COVID-19 Code(s): U07.1 - COVID-19; A41.89 - OTHER SPECIFIED SEPSIS Status: Acute Plan: Present on admission (2) Pneumonia due to COVID-19 virus Code(s): U07.1 - COVID-19; J12.89 - OTHER VIRAL PNEUMONIA Status: Acute (3) Acute respiratory failure with hypoxia Code(s): J96.01 - ACUTE RESPIRATORY FAILURE WITH HYPOXIA Status: Acute (4) DM type 2 (diabetes mellitus, type 2) Status: Chronic Qualifiers: Diabetes mellitus nursing home insulin use: without nursing home use Diabetes mellitus complication status: without complication Qualified Code(s): E11.9 - Type 2 diabetes mellitus without complications (5) Dyslipidemia Code(s): E78.5 - HYPERLIPIDEMIA, UNSPECIFIED Status: Chronic (6) Hypertension Code(s): I10 - ESSENTIAL (PRIMARY) HYPERTENSION Status: Chronic - Plan Patient still needing high flow oxygen. Continue dexamethasone, vitamin C and zinc. Patient is on insulin sliding scale and Accu-Cheks. Patient is on ceftriaxone and azithromycin. Check a.m. labs. Poor oral intake, start peripheral parenteral nutrition.
[2020-06-22] MEDS: Donepezil HCl 5 MG TAB PO SCH (21:30)
[2020-06-23] MEDS: MEROPENEM 1 GM/50 ML 1 GM in Premix Bag 1 BAG IVPB SCH ×3 (00:26→18:43)
[2020-06-23 05:13] LABS: Band 20 % (5-11); Hemoglobin 13.2 g/dL (12.0-16.0); Lymphocytes 3 % (21-51); MDiff Complete? YES; Mean Corpuscular HGB CONC 34.1 g/dL (32.0-36.0); Mean Corpuscular Hemoglobin 33.4 pg (27.0-31.0); Mean Corpuscular Volume 97.8 fL (78.0-98.0); Mean Platelet Volume 10.7 fL (7.4-10.4); Monocytes 2 % (0-10); Neutrophil 75 % (42-75); Platelet Count 214 thou/uL (130-400); Platelet Morphology Comment Appears Adequate; RBC Distribution Width 12.8 % (11.5-14.5); RBC Morphology Normal; Red Blood Cell (RBC) Count 3.96 mill/uL (4.20-5.40); White Blood Cell (WBC) Count 11.8 thou/uL (4.8-10.8)
[2020-06-23 05:14] LABS: Anion Gap 13 mmol/L (10-20); BUN (Urea Nitrogen) 26 mg/dL (9.8-20.1); Calc. Creatinine Clearance 57 mL/min (70-130); Calcium 8.4 mg/dL (7.8-10.44); Carbon Dioxide 21 mmol/L (23-31); Chloride 113 mmol/L (98-107); Estimated GFR-MDRD 76; Glucose 271 mg/dL (83-110); Sodium 144 mmol/L (136-145)
[2020-06-23 05:15] LABS: Potassium 2.9 mmol/L (3.5-5.1)
[2020-06-23] MEDS ORDERED: Potassium Chloride 40 MEQ in Sodium Chloride 0.9% 250 ML 250 ML IVPB SCH (06:00)
[2020-06-23] MEDS: HumaLOG 300 UNITS/3 ML VIAL SC PRN ×4 (06:02→21:22)
[2020-06-23] MEDS: Dexamethasone 10 MG in Sodium Chloride 0.9% 50 ML IVPB SCH (08:01)
[2020-06-23] MEDS: Enoxaparin Sodium 40 MG/0.4 ML SYRINGE SC SCH ×2 (08:01→21:09)
[2020-06-23] MEDS: Ferrous Sulfate 325 MG TAB PO SCH (08:04)
[2020-06-23] MEDS: Cholecalciferol 1,000 UNITS (25 MCG) TAB PO SCH (08:05)
[2020-06-23] MEDS: Zinc Sulfate 220 MG CAP PO SCH (08:05)
[2020-06-23] MEDS: Amlodipine 10 MG TAB PO SCH (08:05)
[2020-06-23] MEDS: Ascorbic Acid 500 mg Chewable Tablet PO SCH (08:05)
--- NOTE | 2020-06-23 14:25 | PDOC.HOSPP ---
- Subjective Encounter Date: 06/23/20 Encounter Time: 08:00 Subjective: Patient seen in follow-up for acute hypoxic respiratory failure. Patient sleepy, could not complete review of systems. - Objective Vital Signs & Weight: Vital Signs (12 hours) Temp Pulse Resp BP Pulse Ox 06/23/20 08:15 96.3 F L 65 32 H 168/72 H 94 L 06/23/20 03:38 98.4 F 70 30 H 165/82 H 96 Weight Admit Weight 146 lb 4.8 oz Weight 146 lb 4.8 oz I&O: 06/22/20 06/23/20 06/24/20 06:59 06:59 06:59 Intake Total 1200 968 599 Output Total 500 700 900 Balance 700 268 -301 Result Diagrams: 06/23/20 04:27 06/23/20 04:27 Additional Labs: Labs and MAR reviewed by me EKG Reviewed by me: Yes (Telemetry: NSR) Hospitalist ROS - Review of Systems ROS unobtainable: due to mental status - Medication Medications: Active Medications Generic Name Dose Route Start Last Admin Trade Name Freq PRN Reason Stop Dose Admin Acetaminophen 650 mg 06/21/20 09:30 06/22/20 08:45 Acetaminophen 650 Mg Suppository [place] 650 mg Q8H PRN Administration Headache/Fever or Pain Amlodipine Besylate 10 mg 06/22/20 09:00 06/23/20 08:05 Amlodipine 10 Mg Tab PO Not Given DAILY MARY KATE Ascorbic Acid 1,000 mg 06/22/20 09:00 06/23/20 08:05 Ascorbic Acid 500 Mg Chewable Tablet PO Not Given DAILY MARY KATE Cholecalciferol 2,000 units 06/22/20 09:00 06/23/20 08:05 Cholecalciferol 1,000 Units (25 Mcg) Tab PO Not Given DAILY MARY KATE Donepezil HCl 5 mg 06/21/20 21:00 06/22/20 21:30 Donepezil Hcl 5 Mg Tab PO Not Given HS MARY KATE Enoxaparin Sodium 40 mg 06/20/20 21:00 06/23/20 08:01 Enoxaparin Sodium 40 Mg/0.4 Ml Syringe SC 40 mg 0900,2100 MARY KATE Administration Ferrous Sulfate 325 mg 06/22/20 08:00 06/23/20 08:04 Ferrous Sulfate 325 Mg Tab PO Not Given QAM-WM MARY KATE Dexamethasone 10 mg/ Sodium 51 mls @ 100 mls/hr 06/21/20 09:00 06/23/20 08:01 Chloride IVPB 51 mls DAILY MARY KATE Administration Amino Acids/Electrolytes/Dextrose 1,000 mls @ 41.667 mls/hr 06/22/20 14:00 06/22/20 14:19 Clinimix E 4.25/5 IV 1,000 mls INF MARY KATE Administration Meropenem 1 gm/ Device 50 mls @ 200 mls/hr 06/23/20 01:00 06/23/20 00:26 IVPB 50 mls 0100,0900,1700 MARY KATE Administration Insulin Human Lispro 0 units 06/20/20 15:36 06/23/20 06:02 Humalog 300 Units/3 Ml Vial SC 4 unit .MILD SLIDING SCALE PRN Administration Mild Correctional Scale Pantoprazole Sodium 40 mg 06/22/20 09:00 06/23/20 08:02 Pantoprazole 40 Mg Tab PO Not Given DAILY MARY KATE Sodium Chloride 10 ml 06/20/20 21:00 06/23/20 08:02 Flush - Normal Saline 10 Ml Syringe IVF 10 ml Q12HR MARY KATE Administration Zinc Sulfate 220 mg 06/22/20 09:00 06/23/20 08:05 Zinc Sulfate 220 Mg Cap PO Not Given DAILY MARY KATE - Exam Eye: anicteric sclera ENT: normocephalic atraumatic, no oropharyngeal lesions Neck: supple Heart: RRR Respiratory: CTAB, no rales Gastrointestinal: soft, non-tender Extremities: no cyanosis Skin: no rashes Psychiatric: normal affect, normal behavior Hosp A/P (1) Acute respiratory failure with hypoxia Code(s): J96.01 - ACUTE RESPIRATORY FAILURE WITH HYPOXIA Status: Acute (2) Sepsis due to COVID-19 Code(s): U07.1 - COVID-19; A41.89 - OTHER SPECIFIED SEPSIS Status: Acute (3) Pneumonia due to COVID-19 virus Code(s): U07.1 - COVID-19; J12.89 - OTHER VIRAL PNEUMONIA Status: Acute (4) DM type 2 (diabetes mellitus, type 2) Status: Chronic Qualifiers: Diabetes mellitus care home insulin use: without ad terminal makeup operator use Diabetes mellitus complication status: without complication Qualified Code(s): E11.9 - Type 2 diabetes mellitus without complications (5) Dyslipidemia Code(s): E78.5 - HYPERLIPIDEMIA, UNSPECIFIED Status: Chronic (6) Hypertension Code(s): I10 - ESSENTIAL (PRIMARY) HYPERTENSION Status: Chronic - Plan Patient continues to be on high flow oxygen. Patient is on dexamethasone, vitamin C and zinc. Continue insulin sliding scale and Accu-Cheks. Continue ceftriaxone and azithromycin. Poor oral intake, patient was started on peripheral parenteral nutrition yesterday but may need NG tube feeds. Attempted to reach patient's daughter, will wait to hear back.
[2020-06-23] MEDS: D5W-AA 4.25% with LYTES 1,000 ML IV SCH (15:42)
[2020-06-23] MEDS: Donepezil HCl 5 MG TAB PO SCH (21:49)
[2020-06-24] MEDS: MEROPENEM 1 GM/50 ML 1 GM in Premix Bag 1 BAG IVPB SCH ×3 (00:19→18:03)
[2020-06-24 05:59] LABS: #Basophils 0.1 thou/uL (0.0-0.2); #Lymphocytes 0.8 thou/uL (1.20-3.40); #Monocytes 0.3 thou/uL (0.11-0.59); #Neutrophils 9.1 thou/uL (1.40-6.50); %Basophils 0.9 % (0.0-1.0); %Eosinophils 0.3 % (0.0-10.0); %Lymphocytes 7.6 % (21.0-51.0); %Monocytes 3.3 % (0.0-10.0); %Neutrophils 87.9 % (42.0-75.0); Hemoglobin 14.8 g/dL (12.0-16.0); Mean Corpuscular HGB CONC 33.9 g/dL (32.0-36.0); Mean Corpuscular Hemoglobin 33.5 pg (27.0-31.0); Mean Corpuscular Volume 98.8 fL (78.0-98.0); Platelet Count 233 thou/uL (130-400); Red Blood Cell (RBC) Count 4.41 mill/uL (4.20-5.40); White Blood Cell (WBC) Count 10.4 thou/uL (4.8-10.8)
[2020-06-24 06:24] LABS: Anion Gap 17 mmol/L (10-20); BUN (Urea Nitrogen) 28 mg/dL (9.8-20.1); Calc. Creatinine Clearance 53 mL/min (70-130); Calcium 8.9 mg/dL (7.8-10.44); Carbon Dioxide 21 mmol/L (23-31); Chloride 112 mmol/L (98-107); Estimated GFR-MDRD 78; Glucose 295 mg/dL (83-110); Potassium 3.5 mmol/L (3.5-5.1); Sodium 146 mmol/L (136-145)
[2020-06-24] MEDS: HumaLOG 300 UNITS/3 ML VIAL SC PRN ×3 (06:46→18:03)
[2020-06-24] MEDS: Cholecalciferol 1,000 UNITS (25 MCG) TAB PO SCH (07:49)
[2020-06-24] MEDS: Zinc Sulfate 220 MG CAP PO SCH (07:49)
[2020-06-24] MEDS: Ferrous Sulfate 325 MG TAB PO SCH (07:49)
[2020-06-24] MEDS: Amlodipine 10 MG TAB PO SCH (07:49)
[2020-06-24] MEDS: Ascorbic Acid 500 mg Chewable Tablet PO SCH (07:49)
[2020-06-24] MEDS: Donepezil HCl 5 MG TAB PO SCH (07:49)
[2020-06-24] MEDS: Enoxaparin Sodium 40 MG/0.4 ML SYRINGE SC SCH ×2 (07:52→20:23)
[2020-06-24] MEDS: Labetalol HCl 100 MG/20 ML VIAL SLOW IVP PRN (09:39)
[2020-06-24] MEDS: Dexamethasone 10 MG in Sodium Chloride 0.9% 50 ML IVPB SCH (12:00)
--- NOTE | 2020-06-24 13:30 | PDOC.HOSPP ---
- Subjective Encounter Date: 06/24/20 Encounter Time: 07:00 Subjective: Patient seen in follow-up for hypoxic respiratory failure. Still nonverbal, could not complete review of systems. - Objective Vital Signs & Weight: Vital Signs (12 hours) Temp Pulse Resp BP Pulse Ox 06/24/20 10:57 170/74 H 06/24/20 08:05 97.7 F 76 24 H 195/86 H 99 06/24/20 04:28 92 L 06/24/20 04:04 98.3 F 68 30 H 154/93 H 92 L Weight Admit Weight 146 lb 4.8 oz Weight 134 lb 14.4 oz I&O: 06/23/20 06/24/20 06/25/20 06:59 06:59 05:59 Intake Total 968 1574 Output Total 700 2750 Balance 268 -1176 Result Diagrams: 06/24/20 05:20 06/24/20 05:20 Additional Labs: Accuchecks 06/24/20 06/23/20 06/23/20 10:54 21:14 17:01 POC Glucose 210 H 313 H 293 H 06/23/20 06/23/20 06/22/20 12:28 06:04 21:35 POC Glucose 228 H 252 H 301 H 06/22/20 06/22/20 17:22 11:19 POC Glucose 174 H 271 H Labs and MAR reviewed by me EKG Reviewed by me: Yes (Telemetry: NSR) Hospitalist ROS - Review of Systems ROS unobtainable: due to mental status - Medication Medications: Active Medications Generic Name Dose Route Start Last Admin Trade Name Espinozaq PRN Reason Stop Dose Admin Acetaminophen 650 mg 06/21/20 09:30 06/22/20 08:45 Acetaminophen 650 Mg Suppository [place] 650 mg Q8H PRN Administration Headache/Fever or Pain Amlodipine Besylate 10 mg 06/22/20 09:00 06/24/20 07:49 Amlodipine 10 Mg Tab PO Not Given DAILY MARY KATE Ascorbic Acid 1,000 mg 06/22/20 09:00 06/24/20 07:49 Ascorbic Acid 500 Mg Chewable Tablet PO Not Given DAILY MARY KATE Cholecalciferol 2,000 units 06/22/20 09:00 06/24/20 07:49 Cholecalciferol 1,000 Units (25 Mcg) Tab PO Not Given DAILY MARY KATE Donepezil HCl 5 mg 06/21/20 21:00 06/24/20 07:49 Donepezil Hcl 5 Mg Tab PO Not Given HS MARY KATE Enoxaparin Sodium 40 mg 06/20/20 21:00 06/24/20 07:52 Enoxaparin Sodium 40 Mg/0.4 Ml Syringe SC 40 mg 0900,2100 MARY KATE Administration Ferrous Sulfate 325 mg 06/22/20 08:00 06/24/20 07:49 Ferrous Sulfate 325 Mg Tab PO Not Given QAM-WM MARY KATE Dexamethasone 10 mg/ Sodium 51 mls @ 100 mls/hr 06/21/20 09:00 06/23/20 08:01 Chloride IVPB 51 mls DAILY MARY KATE Administration Amino Acids/Electrolytes/Dextrose 1,000 mls @ 41.667 mls/hr 06/22/20 14:00 06/23/20 15:42 Clinimix E 4.25/5 IV 1,000 mls INF MARY KATE Administration Meropenem 1 gm/ Device 50 mls @ 100 mls/hr 06/24/20 01:00 06/24/20 07:52 IVPB 50 mls 0100,0900,1700 MARY KATE Administration Insulin Human Lispro 0 units 06/20/20 15:36 06/24/20 06:46 Humalog 300 Units/3 Ml Vial SC 4 unit .MILD SLIDING SCALE PRN Administration Mild Correctional Scale Labetalol HCl 10 mg 06/24/20 08:31 06/24/20 09:39 Labetalol Hcl 100 Mg/20 Ml Vial SLOW IVP 10 mg Q4H PRN Administration SBP Greater Than 170 Pantoprazole Sodium 40 mg 06/22/20 09:00 06/24/20 07:49 Pantoprazole 40 Mg Tab PO Not Given DAILY MARY KATE Sodium Chloride 10 ml 06/20/20 21:00 06/24/20 07:52 Flush - Normal Saline 10 Ml Syringe IVF 10 ml Q12HR MARY KATE Administration Zinc Sulfate 220 mg 06/22/20 09:00 06/24/20 07:49 Zinc Sulfate 220 Mg Cap PO Not Given DAILY MARY KATE - Exam ENT: normocephalic atraumatic Neck: supple Heart: RRR Respiratory: CTAB, no wheezes Gastrointestinal: soft, non-tender Skin: no rashes Musculoskeletal: normal tone Psychiatric: normal affect Hosp A/P (1) Acute respiratory failure with hypoxia Code(s): J96.01 - ACUTE RESPIRATORY FAILURE WITH HYPOXIA Status: Acute (2) Sepsis due to COVID-19 Code(s): U07.1 - COVID-19; A41.89 - OTHER SPECIFIED SEPSIS Status: Acute (3) Pneumonia due to COVID-19 virus Code(s): U07.1 - COVID-19; J12.89 - OTHER VIRAL PNEUMONIA Status: Acute (4) DM type 2 (diabetes mellitus, type 2) Status: Chronic Qualifiers: Diabetes mellitus shelter insulin use: without terminal manager use Diabetes mellitus complication status: without complication Qualified Code(s): E11.9 - Type 2 diabetes mellitus without complications (5) Dyslipidemia Code(s): E78.5 - HYPERLIPIDEMIA, UNSPECIFIED Status: Chronic (6) Hypertension Code(s): I10 - ESSENTIAL (PRIMARY) HYPERTENSION Status: Chronic - Plan Still on high flow oxygen. Continue dexamethasone, vitamin C and zinc. Regards are still high, start Lantus 5 units daily. Patient is on ceftriaxone and azithromycin. Patient's daughter agreed for NG tube. But because patient is on high flow oxygen, she will benefit more from TPN. Will order PICC line. Discussed with general surgery service, they recommend PICC line as well.
[2020-06-24] MEDS ORDERED: Insulin Glargine 5 UNITS in Pre-Filled Syringe SC SCH (14:00)
[2020-06-25] MEDS: MEROPENEM 1 GM/50 ML 1 GM in Premix Bag 1 BAG IVPB SCH ×3 (00:52→16:44)
[2020-06-25] MEDS: D5W-AA 4.25% with LYTES 1,000 ML IV SCH (01:23)
[2020-06-25 06:00] LABS: #Monocytes 0.3 thou/uL (0.11-0.59); #Neutrophils 7.4 thou/uL (1.40-6.50); %Basophils 0.2 % (0.0-1.0); %Eosinophils 0.4 % (0.0-10.0); %Lymphocytes 11.7 % (21.0-51.0); %Monocytes 3.3 % (0.0-10.0); %Neutrophils 84.4 % (42.0-75.0); Hemoglobin 14.5 g/dL (12.0-16.0); Mean Corpuscular HGB CONC 33.6 g/dL (32.0-36.0); Mean Corpuscular Hemoglobin 33.1 pg (27.0-31.0); Mean Corpuscular Volume 98.7 fL (78.0-98.0); Mean Platelet Volume 11.5 fL (7.4-10.4); Platelet Count 228 thou/uL (130-400); RBC Distribution Width 13.2 % (11.5-14.5); Red Blood Cell (RBC) Count 4.37 mill/uL (4.20-5.40); White Blood Cell (WBC) Count 8.8 thou/uL (4.8-10.8)
[2020-06-25] MEDS: Labetalol HCl 100 MG/20 ML VIAL SLOW IVP PRN ×3 (06:06→17:22)
[2020-06-25 06:19] LABS: Anion Gap 17 mmol/L (10-20); BUN (Urea Nitrogen) 27 mg/dL (9.8-20.1); Calc. Creatinine Clearance 54 mL/min (70-130); Carbon Dioxide 21 mmol/L (23-31); Chloride 112 mmol/L (98-107); Estimated GFR-MDRD 80; Glucose 306 mg/dL (83-110); Potassium 3.6 mmol/L (3.5-5.1); Sodium 146 mmol/L (136-145)
[2020-06-25] MEDS: HumaLOG 300 UNITS/3 ML VIAL SC PRN ×3 (06:24→16:45)
[2020-06-25] MEDS: Ferrous Sulfate 325 MG TAB PO SCH (08:09)
[2020-06-25] MEDS: Amlodipine 10 MG TAB PO SCH (08:13)
[2020-06-25] MEDS: Cholecalciferol 1,000 UNITS (25 MCG) TAB PO SCH (08:13)
[2020-06-25] MEDS: Ascorbic Acid 500 mg Chewable Tablet PO SCH (08:13)
[2020-06-25] MEDS: Enoxaparin Sodium 40 MG/0.4 ML SYRINGE SC SCH ×2 (08:15→19:34)
[2020-06-25] MEDS: Zinc Sulfate 220 MG CAP PO SCH (08:22)
[2020-06-25] MEDS: Insulin Glargine 5 UNITS in Pre-Filled Syringe SC SCH (10:09)
[2020-06-25] MEDS: Dexamethasone 10 MG/ML VIAL SLOW IVP SCH (10:09)
--- NOTE | 2020-06-25 17:00 | PDOC.HOSPP ---
- Subjective Encounter Date: 06/25/20 Encounter Time: 11:00 Subjective: Patient seen for follow-up regarding COVID-19 pneumonia. She is nonverbal, could not complete review of systems today. - Objective Vital Signs & Weight: Vital Signs (12 hours) Temp Pulse Resp BP BP Pulse Ox 06/25/20 12:00 98 F 73 20 212/92 H 95 06/25/20 08:15 97.2 F L 77 22 H 189/84 H 98 06/25/20 08:13 69 06/25/20 06:35 69 161/74 H 06/25/20 06:06 80 177/82 H Weight Admit Weight 146 lb 4.8 oz Weight 134 lb 14.4 oz I&O: 06/24/20 06/25/20 06/26/20 07:59 06:59 06:59 Intake Total Output Total Balance Result Diagrams: 06/25/20 05:15 06/25/20 05:15 Additional Labs: Accuchecks 06/25/20 06/24/20 11:57 20:28 POC Glucose 272 H 219 H I reviewed patient's labs and MAR EKG Reviewed by me: Yes (Telemetry: NSR) Hospitalist ROS - Review of Systems ROS unobtainable: due to mental status - Medication Medications: Active Medications Generic Name Dose Route Start Last Admin Trade Name Freq PRN Reason Stop Dose Admin Acetaminophen 650 mg 06/21/20 09:30 06/22/20 08:45 Acetaminophen 650 Mg Suppository [place] 650 mg Q8H PRN Administration Headache/Fever or Pain Amlodipine Besylate 10 mg 06/22/20 09:00 06/25/20 08:13 Amlodipine 10 Mg Tab PO Not Given DAILY MARY KATE Ascorbic Acid 1,000 mg 06/22/20 09:00 06/25/20 08:13 Ascorbic Acid 500 Mg Chewable Tablet PO Not Given DAILY MARY KATE Cholecalciferol 2,000 units 06/22/20 09:00 06/25/20 08:13 Cholecalciferol 1,000 Units (25 Mcg) Tab PO Not Given DAILY MARY KATE Dexamethasone 10 mg 06/25/20 09:00 06/25/20 10:09 Dexamethasone 10 Mg/Ml Vial SLOW IVP 10 mg DAILY MARY KATE Administration Donepezil HCl 5 mg 06/21/20 21:00 06/24/20 07:49 Donepezil Hcl 5 Mg Tab PO Not Given HS MARY KATE Enoxaparin Sodium 40 mg 06/20/20 21:00 06/25/20 08:15 Enoxaparin Sodium 40 Mg/0.4 Ml Syringe SC 40 mg 0900,2100 MARY KATE Administration Ferrous Sulfate 325 mg 06/22/20 08:00 06/25/20 08:09 Ferrous Sulfate 325 Mg Tab PO Not Given QAM-WM MARYK ATE Amino Acids/Electrolytes/Dextrose 1,000 mls @ 41.667 mls/hr 06/22/20 14:00 06/25/20 01:23 [employer] Clinimix E 4.25/5 IV 1,000 mls INF MARY KATE Administration Meropenem 1 gm/ Device 50 mls @ 100 mls/hr 06/24/20 01:00 06/25/20 16:44 IVPB 50 mls 0100,0900,1700 MARY KATE Administration Insulin Glargine 5 units/ 0.05 mls @ 0 mls/hr 06/25/20 09:00 06/25/20 10:09 Miscellaneous Medication SC 0.05 mls QAM MARY KATE Administration Insulin Human Lispro 0 units 06/20/20 15:36 06/25/20 16:45 Humalog 300 Units/3 Ml Vial SC 5 unit .MILD SLIDING SCALE PRN Administration Mild Correctional Scale Labetalol HCl 10 mg 06/24/20 08:31 06/25/20 13:52 Labetalol Hcl 100 Mg/20 Ml Vial SLOW IVP 10 mg Q4H PRN Administration SBP Greater Than 170 Pantoprazole Sodium 40 mg 06/22/20 09:00 06/25/20 08:21 Pantoprazole 40 Mg Tab PO Not Given DAILY MARY KATE Sodium Chloride 10 ml 06/20/20 21:00 06/25/20 08:21 Flush - Normal Saline 10 Ml Syringe IVF 10 ml Q12HR MARY KATE Administration Zinc Sulfate 220 mg 06/22/20 09:00 06/25/20 08:22 Zinc Sulfate 220 Mg Cap PO Not Given DAILY MARY KATE - Exam Eye: anicteric sclera Neck: supple Heart: RRR Respiratory: CTAB Gastrointestinal: soft, non-tender Skin: no rashes Psychiatric: normal affect, normal behavior Hosp A/P (1) Sepsis due to COVID-19 Code(s): U07.1 - COVID-19; A41.89 - OTHER SPECIFIED SEPSIS Status: Acute (2) Acute respiratory failure with hypoxia Code(s): J96.01 - ACUTE RESPIRATORY FAILURE WITH HYPOXIA Status: Acute (3) Pneumonia due to COVID-19 virus Code(s): U07.1 - COVID-19; J12.89 - OTHER VIRAL PNEUMONIA Status: Acute (4) DM type 2 (diabetes mellitus, type 2) Status: Chronic Qualifiers: Diabetes mellitus terminal carman insulin use: without mcc use Diabetes mellitus complication status: without complication Qualified Code(s): E11.9 - Type 2 diabetes mellitus without complications (5) Dyslipidemia Code(s): E78.5 - HYPERLIPIDEMIA, UNSPECIFIED Status: Chronic (6) Hypertension Code(s): I10 - ESSENTIAL (PRIMARY) HYPERTENSION Status: Chronic - Plan Still on high flow oxygen. Patient is on dexamethasone, vitamin C and zinc. Continue Lantus 5 units daily. Continue ceftriaxone and azithromycin. Start TPN once PICC line is inserted.
[2020-06-25] MEDS: Donepezil HCl 5 MG TAB PO SCH (21:54)
[2020-06-26] MEDS: D5W-AA 4.25% with LYTES 1,000 ML IV SCH (00:01)
[2020-06-26] MEDS: Labetalol HCl 100 MG/20 ML VIAL SLOW IVP PRN ×3 (00:06→21:53)
[2020-06-26] MEDS: HumaLOG 300 UNITS/3 ML VIAL SC PRN ×4 (06:35→21:28)
[2020-06-26] MEDS: Ferrous Sulfate 325 MG TAB PO SCH (07:47)
[2020-06-26] MEDS: Enoxaparin Sodium 40 MG/0.4 ML SYRINGE SC SCH ×2 (07:53→21:20)
[2020-06-26] MEDS: MEROPENEM 1 GM/50 ML 1 GM in Premix Bag 1 BAG IVPB SCH ×3 (07:54→16:39)
[2020-06-26] MEDS: Amlodipine 10 MG TAB PO SCH (07:56)
[2020-06-26] MEDS: Cholecalciferol 1,000 UNITS (25 MCG) TAB PO SCH (07:57)
[2020-06-26] MEDS: Ascorbic Acid 500 mg Chewable Tablet PO SCH (07:57)
[2020-06-26] MEDS: Zinc Sulfate 220 MG CAP PO SCH (07:58)
[2020-06-26] MEDS: Donepezil HCl 5 MG TAB PO SCH (07:58)
[2020-06-26] MEDS: Dexamethasone 10 MG/ML VIAL SLOW IVP SCH (10:25)
[2020-06-26] MEDS: Insulin Glargine 5 UNITS in Pre-Filled Syringe SC SCH (10:26)
--- NOTE | 2020-06-26 16:16 | SPC ---
Exam: Leftupper extremity ultrasound guided PICC line HISTORY: TPN, IV antibiotics Exposure:0.6 minutes. 3054 mg/sq cm FINDINGS: Lumen: Duallumen Trim length: 39 cm Distal tip:Right atrium Catheter flushes and aspirates without difficulty TECHNIQUE: Consent obtained to perform a left upper extremity PICC line with ultrasound guidance. Le ftarm was prepped and draped in a sterile fashion. 1% lidocaine, buffered with sodium bicarbonate was used for local anesthesia. Under ultrasound guidance, micropuncture needle was used to cannulate thebasilicvein. A 0.018 guidewire was advanced through the needle to level of the superior vena cava. Under fluoroscopy, the wire was further advanced into the inferior vena cava to document venous access. Wire was subsequently pulled back to theright atrium. Dual lumen flushes and aspirates without difficulty. Patient tolerated the procedure well. No immediate or postprocedure complications IMPRESSION: Successfulleftupper surgery PICC line placement with ultrasound guidance
--- NOTE | 2020-06-26 18:56 | PDOC.HOSPP ---
- Subjective Encounter Date: 06/26/20 Encounter Time: 13:30 Subjective: Patient seen for follow-up regarding COVID-19 pneumonia. She is nonverbal, could not complete review of systems. - Objective Vital Signs & Weight: Vital Signs (12 hours) Temp Pulse Resp BP Pulse Ox 06/26/20 16:16 98.2 F 83 20 174/84 H 96 06/26/20 12:00 97.7 F 75 20 186/89 H 100 06/26/20 10:25 167/80 H 06/26/20 08:00 96.1 F L 74 24 H 182/87 H 98 06/26/20 07:56 72 06/26/20 07:30 93 L Weight Admit Weight 146 lb 4.8 oz Weight 134 lb 14.4 oz I&O: 06/25/20 06/26/20 06/27/20 06:59 06:59 06:59 Intake Total 710 Output Total 1100 Balance -390 Result Diagrams: 06/25/20 05:15 06/25/20 05:15 Additional Labs: Accuchecks 06/26/20 06/26/20 06/26/20 16:32 12:03 05:56 POC Glucose 306 H 252 H 262 H 06/25/20 06/25/20 19:36 16:41 POC Glucose 257 H 334 H Labs and MAR reviewed by me EKG Reviewed by me: Yes (Telemetry: NSR) Hospitalist ROS - Review of Systems ROS unobtainable: due to mental status - Medication Medications: Active Medications Generic Name Dose Route Start Last Admin Trade Name Freq PRN Reason Stop Dose Admin Acetaminophen 650 mg 06/21/20 09:30 06/22/20 08:45 Acetaminophen 650 Mg Suppository [place] 650 mg Q8H PRN Administration Headache/Fever or Pain Amlodipine Besylate 10 mg 06/22/20 09:00 06/26/20 07:56 Amlodipine 10 Mg Tab PO Not Given DAILY [facility] Ascorbic Acid 1,000 mg 06/22/20 09:00 06/26/20 07:57 Ascorbic Acid 500 Mg Chewable Tablet PO Not Given DAILY [facility] Cholecalciferol 2,000 units 06/22/20 09:00 06/26/20 07:57 Cholecalciferol 1,000 Units (25 Mcg) Tab PO Not Given DAILY [facility] Dexamethasone 10 mg 06/25/20 09:00 06/26/20 10:25 Dexamethasone 10 Mg/Ml Vial SLOW IVP 10 mg DAILY MARY KATE Administration Donepezil HCl 5 mg 06/21/20 21:00 06/26/20 07:58 Donepezil Hcl 5 Mg Tab PO Not Given HS MARY KATE Enoxaparin Sodium 40 mg 06/20/20 21:00 06/26/20 07:53 Enoxaparin Sodium 40 Mg/0.4 Ml Syringe SC 40 mg 0900,2100 MARY KATE Administration Ferrous Sulfate 325 mg 06/22/20 08:00 06/26/20 07:47 Ferrous Sulfate 325 Mg Tab PO Not Given QAM-WM MARY KATE Amino Acids/Electrolytes/Dextrose 1,000 mls @ 41.667 mls/hr 06/22/20 14:00 06/26/20 00:01 Clinimix E 4.25/5 IV 1,000 mls INF MARY KATE Administration Meropenem 1 gm/ Device 50 mls @ 100 mls/hr 06/24/20 01:00 06/26/20 16:39 IVPB 50 mls 0100,0900,1700 MARY KATE Administration Insulin Glargine 5 units/ 0.05 mls @ 0 mls/hr 06/25/20 09:00 06/26/20 10:26 Miscellaneous Medication SC 0.05 mls QAM MARY KATE Administration Insulin Human Lispro 0 units 06/20/20 15:36 06/26/20 17:12 Humalog 300 Units/3 Ml Vial SC 5 unit .MILD SLIDING SCALE PRN Administration Mild Correctional Scale Labetalol HCl 10 mg 06/24/20 08:31 06/26/20 04:34 Labetalol Hcl 100 Mg/20 Ml Vial SLOW IVP 10 mg Q4H PRN Administration SBP Greater Than 170 Pantoprazole Sodium 40 mg 06/22/20 09:00 06/26/20 07:57 Pantoprazole 40 Mg Tab PO Not Given DAILY MARY KATE Sodium Chloride 10 ml 06/20/20 21:00 06/26/20 07:56 Flush - Normal Saline 10 Ml Syringe IVF 10 ml Q12HR MARY KATE Administration Zinc Sulfate 220 mg 06/22/20 09:00 06/26/20 07:58 Zinc Sulfate 220 Mg Cap PO Not Given DAILY MARY KATE - Exam Eye: anicteric sclera ENT: normocephalic atraumatic, no oropharyngeal lesions Neck: no thyromegaly Heart: RRR Respiratory: CTAB Gastrointestinal: soft Skin: no rashes Psychiatric - other findings: Unable to assess Hosp A/P (1) Pneumonia due to COVID-19 virus Code(s): U07.1 - COVID-19; J12.89 - OTHER VIRAL PNEUMONIA Status: Acute (2) Acute respiratory failure with hypoxia Code(s): J96.01 - ACUTE RESPIRATORY FAILURE WITH HYPOXIA Status: Acute (3) Sepsis due to COVID-19 Code(s): U07.1 - COVID-19; A41.89 - OTHER SPECIFIED SEPSIS Status: Acute (4) DM type 2 (diabetes mellitus, type 2) Status: Chronic Qualifiers: Diabetes mellitus termite exterminator helper insulin use: without termite exterminator helper use Diabetes mellitus complication status: without complication Qualified Code(s): E11.9 - Type 2 diabetes mellitus without complications (5) Dyslipidemia Code(s): E78.5 - HYPERLIPIDEMIA, UNSPECIFIED Status: Chronic (6) Hypertension Code(s): I10 - ESSENTIAL (PRIMARY) HYPERTENSION Status: Chronic - Plan Patient continues to need high flow oxygen. Continue dexamethasone, vitamin C and zinc. Increase Lantus to 10 units daily. Continue ceftriaxone and azithromycin. PICC placement today, followed by initiation of TPN.
[2020-06-27] MEDS: Multivitamins, Adult 10 ML, TRACE ELEMENT CONCENTRATE 1 ML in D15W-AA 5% w/o Lytes 2,00... IV SCH ×2 (01:15→22:48)
[2020-06-27] MEDS: MEROPENEM 1 GM/50 ML 1 GM in Premix Bag 1 BAG IVPB SCH ×3 (01:15→17:37)
[2020-06-27] MEDS: HumaLOG 300 UNITS/3 ML VIAL SC PRN ×2 (05:52→19:58)
[2020-06-27] MEDS: Labetalol HCl 100 MG/20 ML VIAL SLOW IVP PRN (05:53)
[2020-06-27] MEDS: Ferrous Sulfate 325 MG TAB PO SCH (08:29)
[2020-06-27] MEDS: Ascorbic Acid 500 mg Chewable Tablet PO SCH (08:29)
[2020-06-27] MEDS: Amlodipine 10 MG TAB PO SCH (08:29)
[2020-06-27] MEDS: Cholecalciferol 1,000 UNITS (25 MCG) TAB PO SCH (08:30)
[2020-06-27] MEDS: Enoxaparin Sodium 40 MG/0.4 ML SYRINGE SC SCH ×2 (08:31→19:44)
[2020-06-27] MEDS: Dexamethasone 10 MG/ML VIAL SLOW IVP SCH (08:31)
[2020-06-27] MEDS: Zinc Sulfate 220 MG CAP PO SCH (08:34)
[2020-06-27] MEDS ORDERED: Insulin Glargine 10 UNITS in Pre-Filled Syringe 1 EACH SC SCH (09:00)
[2020-06-27] MEDS ORDERED: Enalaprilat Dihydrate 1.25 MG/ML VIAL SLOW IVP SCH (12:45)
[2020-06-27] MEDS ORDERED: HumaLOG 300 UNITS/3 ML VIAL SC SCH ×2 (12:45→18:15)
--- NOTE | 2020-06-27 14:38 | PDOC.HOSPP ---
- Subjective Encounter Date: 06/27/20 Encounter Time: 09:40 Subjective: Patient seen for follow-up regarding Covid pneumonia. Patient not talking, could not complete review of systems. - Objective Vital Signs & Weight: Vital Signs (12 hours) Temp Pulse Resp BP Pulse Ox 06/27/20 12:25 98.2 F 83 20 192/89 H 100 06/27/20 08:47 98.1 F 77 20 194/88 H 98 06/27/20 08:32 96 06/27/20 07:50 98 06/27/20 05:58 96 06/27/20 05:45 83 205/93 H 06/27/20 04:00 98.6 F 87 18 238/110 H 96 Weight Admit Weight 146 lb 4.8 oz Weight 134 lb 14.4 oz I&O: 06/26/20 06/27/20 06/28/20 06:59 06:59 06:59 Intake Total 710 660 Output Total 1100 1400 Balance -390 -740 Result Diagrams: 06/25/20 05:15 06/25/20 05:15 Additional Labs: Accuchecks 06/26/20 06/26/20 21:26 16:32 POC Glucose 242 H 306 H Labs and MAR reviewed by me EKG Reviewed by me: Yes (Normal sinus rhythm on telemetry) Hospitalist ROS - Review of Systems Cardiovascular: denies: chest pain, palpitations, orthopnea, paroxysmal noc. dyspnea, edema, light headedness Gastrointestinal: denies: nausea, vomiting, abdominal pain, diarrhea, constipation, melena, hematochezia - Medication Medications: Active Medications Generic Name Dose Route Start Last Admin Trade Name Espinozaq PRN Reason Stop Dose Admin Acetaminophen 650 mg 06/21/20 09:30 06/22/20 08:45 Acetaminophen 650 Mg Suppository [place] 650 mg Q8H PRN Administration Headache/Fever or Pain Amlodipine Besylate 10 mg 06/22/20 09:00 06/27/20 08:29 Amlodipine 10 Mg Tab PO Not Given DAILY [facility] Ascorbic Acid 1,000 mg 06/22/20 09:00 06/27/20 08:29 Ascorbic Acid 500 Mg Chewable Tablet PO Not Given DAILY MARY KATE Cholecalciferol 2,000 units 06/22/20 09:00 06/27/20 08:30 Cholecalciferol 1,000 Units (25 Mcg) Tab PO Not Given DAILY MARY KATE Dexamethasone 10 mg 06/25/20 09:00 06/27/20 08:31 Dexamethasone 10 Mg/Ml Vial SLOW IVP 10 mg DAILY MARY KATE Administration Donepezil HCl 5 mg 06/21/20 21:00 06/26/20 07:58 Donepezil Hcl 5 Mg Tab PO Not Given HS MARY KATE Enalaprilat 2.5 mg 06/27/20 12:45 06/27/20 13:53 Enalaprilat Dihydrate 1.25 Mg/Ml Vial SLOW IVP 06/27/20 14:45 2.5 mg NOW MARY KATE Administration Enoxaparin Sodium 40 mg 06/20/20 21:00 06/27/20 08:31 Enoxaparin Sodium 40 Mg/0.4 Ml Syringe SC 40 mg 0900,2100 [facility] Administration Ferrous Sulfate 325 mg 06/22/20 08:00 06/27/20 08:29 Ferrous Sulfate 325 Mg Tab PO Not Given QAM-WM [facility] Meropenem 1 gm/ Device 50 mls @ 100 mls/hr 06/24/20 01:00 06/27/20 08:33 IVPB 50 mls 0100,0900,1700 [facility] Administration Insulin Glargine 10 units/ 0.1 mls @ 0 mls/hr 06/27/20 09:00 06/27/20 08:32 Miscellaneous Medication SC 0.1 mls QAM [facility] Administration Multivitamins 10 ml/ Chromium/ 2,261 mls @ 94.208 mls/hr 06/26/20 22:00 06/27/20 01:15 Copper/Manganese/Seleni/Zn 1 IV 2,261 mls ml/ Amino Acids/Dextrose/ Fat 2200 [facility] Administration Emulsion Intravenous Insulin Human Lispro 0 units 06/20/20 15:36 06/27/20 05:52 Humalog 300 Units/3 Ml Vial SC 5 unit .MILD SLIDING SCALE PRN Administration Mild Correctional Scale Insulin Human Lispro 0 units 06/25/20 20:17 06/26/20 21:28 Humalog 300 Units/3 Ml Vial SC 2 unit .BEDTIME SLIDING SC PRN Administration Bedtime Correctional Scale Insulin Human Lispro 10 units 06/27/20 12:45 06/27/20 13:53 Humalog 300 Units/3 Ml Vial SC 06/27/20 14:45 10 unit NOW MARY KATE Administration Labetalol HCl 10 mg 06/24/20 08:31 06/27/20 05:53 Labetalol Hcl 100 Mg/20 Ml Vial SLOW IVP 10 mg Q4H PRN Administration SBP Greater Than 170 Pantoprazole Sodium 40 mg 06/22/20 09:00 06/27/20 08:34 Pantoprazole 40 Mg Tab PO Not Given DAILY [facility]ARY KATE Sodium Chloride 10 ml 06/20/20 21:00 06/27/20 08:34 Flush - Normal Saline 10 Ml Syringe IVF 10 ml Q12HR [facility]ARY KATE Administration Zinc Sulfate 220 mg 06/22/20 09:00 06/27/20 08:34 Zinc Sulfate 220 Mg Cap PO Not Given DAILY MARY KATE - Exam General Appearance: awake alert Eye: anicteric sclera ENT: moist mucosa Neck: supple Heart: RRR Respiratory: CTAB, no wheezes Gastrointestinal: soft, non-tender Psychiatric: normal affect Hosp A/P (1) Pneumonia due to COVID-19 virus Code(s): U07.1 - COVID-19; J12.89 - OTHER VIRAL PNEUMONIA Status: Acute (2) Acute respiratory failure with hypoxia Code(s): J96.01 - ACUTE RESPIRATORY FAILURE WITH HYPOXIA Status: Acute (3) Sepsis due to COVID-19 Code(s): U07.1 - COVID-19; A41.89 - OTHER SPECIFIED SEPSIS Status: Acute (4) DM type 2 (diabetes mellitus, type 2) Status: Chronic Qualifiers: Diabetes mellitus terminal clerk insulin use: without terminal clerk use Diabetes mellitus complication status: without complication Qualified Code(s): E11.9 - Type 2 diabetes mellitus without complications (5) Hypertension Code(s): I10 - ESSENTIAL (PRIMARY) HYPERTENSION Status: Chronic (6) Dyslipidemia Code(s): E78.5 - HYPERLIPIDEMIA, UNSPECIFIED Status: Chronic - Plan Patient's oxygen requirements have improved. She is receiving dexamethasone, vitamin C and zinc. Increase Lantus to 1 15 units daily. Continue ceftriaxone and azithromycin. Patient has been started on TPN.
[2020-06-27] MEDS ORDERED: Insulin Glargine 5 UNITS in Pre-Filled Syringe 1 EACH SC SCH (18:15)
[2020-06-27] MEDS ORDERED: Enalaprilat Dihydrate 1.25 MG/ML VIAL SLOW IVP PRN (18:45)
[2020-06-27] MEDS: Donepezil HCl 5 MG TAB PO SCH (19:44)
[2020-06-28] MEDS: MEROPENEM 1 GM/50 ML 1 GM in Premix Bag 1 BAG IVPB SCH ×3 (00:59→16:39)
[2020-06-28] MEDS: HumaLOG 300 UNITS/3 ML VIAL SC PRN ×4 (06:02→21:56)
[2020-06-28 07:08] LABS: Prothrombin Time 13.3 sec (12.0-14.7)
[2020-06-28 07:09] LABS: ALT (SGPT) 41 U/L (8-55); AST (SGOT) 23 U/L (5-34); Alkaline Phosphatase 76 U/L (40-110); Anion Gap 16 mmol/L (10-20); BUN (Urea Nitrogen) 41 mg/dL (9.8-20.1); Bilirubin, Total 0.5 mg/dL (0.2-1.2); Calc. Creatinine Clearance 39 mL/min (70-130); Calcium 9.6 mg/dL (7.8-10.44); Carbon Dioxide 18 mmol/L (23-31); Cardiac Risk 10.9 (Less than 4.5); Chloride 122 mmol/L (98-107); Cholesterol 197 mg/dl (< 200 Desired); Estimated GFR-MDRD 54; Globulin 3.9 g/dL (2.4-3.5); HDL Cholesterol 18 mg/dL (>60 Neg Risk); LDL Cholesterol, Calculated 103 mg/dL; Magnesium 2.5 mg/dL (1.6-2.6); PTT 22.8 sec (22.9-36.1); Potassium 3.2 mmol/L (3.5-5.1); Protein, Total 6.9 g/dL (6.0-8.3); Sodium 153 mmol/L (136-145); Triglycerides 382 mg/dL (Less than 150)
[2020-06-28 07:23] LABS: Glucose 768 mg/dL (83-110)
[2020-06-28] MEDS ORDERED: HumaLOG 300 UNITS/3 ML VIAL SC SCH ×2 (07:30→17:15)
[2020-06-28] MEDS ORDERED: Potassium Phosphate 30 MMOL in Sodium Chloride 0.9% 250 ML 250 ML IVPB SCH (07:30)
[2020-06-28] MEDS ORDERED: Insulin Regular 300 UNITS/3 ML VIAL IVP SCH (07:45)
[2020-06-28] MEDS ORDERED: Insulin Regular 300 UNITS/3 ML VIAL ONE (07:47)
[2020-06-28] MEDS: Dexamethasone 10 MG/ML VIAL SLOW IVP SCH (07:57)
[2020-06-28] MEDS: Enoxaparin Sodium 40 MG/0.4 ML SYRINGE SC SCH ×2 (07:58→21:41)
[2020-06-28] MEDS: Ferrous Sulfate 325 MG TAB PO SCH (07:59)
[2020-06-28] MEDS: Amlodipine 10 MG TAB PO SCH (07:59)
[2020-06-28] MEDS: Ascorbic Acid 500 mg Chewable Tablet PO SCH (08:00)
[2020-06-28] MEDS: Cholecalciferol 1,000 UNITS (25 MCG) TAB PO SCH (08:00)
[2020-06-28] MEDS ORDERED: Insulin Glargine 15 UNITS in Pre-Filled Syringe SC SCH (09:00)
[2020-06-28] MEDS: Zinc Sulfate 220 MG CAP PO SCH (09:12)
--- NOTE | 2020-06-28 13:45 | PDOC.HOSPP ---
- Subjective Encounter Date: 06/28/20 Encounter Time: 07:20 Subjective: Patient seen for follow-up for COVID-19 pneumonia. She is nonverbal, unable to complete review of systems. - Objective Vital Signs & Weight: Vital Signs (12 hours) Temp Pulse Resp BP Pulse Ox 06/28/20 11:40 97.7 F 98 20 157/73 H 97 06/28/20 08:10 97.9 F 104 H 20 160/82 H 96 06/28/20 08:08 99 06/28/20 03:15 98 06/28/20 02:48 97.3 F L 83 28 H 149/75 H 99 Weight Admit Weight 146 lb 4.8 oz Weight 136 lb 1.6 oz I&O: 06/27/20 06/28/20 06/29/20 06:59 06:59 06:59 Intake Total 660 4077 Output Total 1400 2450 Balance -740 1627 Result Diagrams: 06/25/20 05:15 06/28/20 06:44 Additional Labs: Accuchecks 06/28/20 06/28/20 06/27/20 10:48 05:59 19:51 POC Glucose 495 H Greater than 500 H Greater than 500 H 06/27/20 06/27/20 12:22 05:23 POC Glucose 525 H 388 H Labs and MAR reviewed by me EKG Reviewed by me: Yes (Telemetry shows normal sinus rhythm) Hospitalist ROS - Review of Systems ROS unobtainable: due to mental status - Medication Medications: Active Medications Generic Name Dose Route Start Last Admin Trade Name Freq PRN Reason Stop Dose Admin Acetaminophen 650 mg 06/21/20 09:30 06/22/20 08:45 Acetaminophen 650 Mg Suppository [place] 650 mg Q8H PRN Administration Headache/Fever or Pain Amlodipine Besylate 10 mg 06/22/20 09:00 06/28/20 07:59 Amlodipine 10 Mg Tab PO Not Given DAILY ON LICENSE OF [facility] Ascorbic Acid 1,000 mg 06/22/20 09:00 06/28/20 08:00 Ascorbic Acid 500 Mg Chewable Tablet PO Not Given DAILY MARY KATE Cholecalciferol 2,000 units 06/22/20 09:00 06/28/20 08:00 Cholecalciferol 1,000 Units (25 Mcg) Tab PO Not Given DAILY ON LICENSE OF [facility] Dexamethasone 10 mg 06/25/20 09:00 06/28/20 07:57 Dexamethasone 10 Mg/Ml Vial SLOW IVP 10 mg DAILY [facility] Administration Donepezil HCl 5 mg 06/21/20 21:00 06/27/20 19:44 Donepezil Hcl 5 Mg Tab PO Not Given HS MARY KATE Enoxaparin Sodium 40 mg 06/20/20 21:00 06/28/20 07:58 Enoxaparin Sodium 40 Mg/0.4 Ml Syringe SC 40 mg 0900,2100 [facility] Administration Ferrous Sulfate 325 mg 06/22/20 08:00 06/28/20 07:59 Ferrous Sulfate 325 Mg Tab PO Not Given QAM-WM [facility] Meropenem 1 gm/ Device 50 mls @ 100 mls/hr 06/24/20 01:00 06/28/20 07:57 IVPB 50 mls 0100,0900,1700 [facility] Administration Multivitamins 10 ml/ Chromium/ 2,261 mls @ 94.208 mls/hr 06/26/20 22:00 06/27/20 22:48 Copper/Manganese/Seleni/Zn 1 IV 06/28/20 22:00 2,261 mls ml/ Amino Acids/Dextrose/ Fat 2200 [facility] Administration Emulsion Intravenous Insulin Glargine 15 units/ 0.15 mls @ 0 mls/hr 06/28/20 09:00 06/28/20 07:58 Miscellaneous Medication SC 0.15 mls QAM [facility] Administration Potassium Phosphate 30 mmol/ 260 mls @ 41.7 mls/hr 06/28/20 07:30 06/28/20 09:11 Sodium Chloride IVPB 06/28/20 14:00 260 mls NOW MARY KATE Administration Insulin Human Lispro 0 units 06/25/20 20:17 06/27/20 19:58 Humalog 300 Units/3 Ml Vial SC 5 unit .BEDTIME SLIDING SC PRN Administration Bedtime Correctional Scale Insulin Human Lispro 0 units 06/27/20 18:16 06/28/20 11:25 Humalog 300 Units/3 Ml Vial SC 10 unit .MODERATE SLIDING SC PRN Administration Moderate Correctional Scale Labetalol HCl 10 mg 06/24/20 08:31 06/27/20 05:53 Labetalol Hcl 100 Mg/20 Ml Vial SLOW IVP 10 mg Q4H PRN Administration SBP Greater Than 170 Pantoprazole Sodium 40 mg 06/22/20 09:00 06/28/20 09:11 Pantoprazole 40 Mg Tab PO Not Given DAILY MARY KATE Sodium Chloride 10 ml 06/20/20 21:00 06/28/20 09:12 Flush - Normal Saline 10 Ml Syringe IVF 10 ml Q12HR [facility] KATE Administration Zinc Sulfate 220 mg 06/22/20 09:00 06/28/20 09:12 Zinc Sulfate 220 Mg Cap PO Not Given DAILY MARY KATE - Exam General Appearance: awake alert Eye: anicteric sclera ENT: moist mucosa Neck: supple Heart: RRR Respiratory: CTAB Skin: no rashes Psychiatric: normal affect Hosp A/P (1) Pneumonia due to COVID-19 virus Code(s): U07.1 - COVID-19; J12.89 - OTHER VIRAL PNEUMONIA Status: Acute (2) Acute respiratory failure with hypoxia Code(s): J96.01 - ACUTE RESPIRATORY FAILURE WITH HYPOXIA Status: Acute (3) UTI (urinary tract infection) Status: Acute (4) DM type 2 (diabetes mellitus, type 2) Status: Chronic Qualifiers: Diabetes mellitus terminal computer operator insulin use: without senior living use Diabetes mellitus complication status: without complication Qualified Code(s): E11.9 - Type 2 diabetes mellitus without complications (5) Hypertension Code(s): I10 - ESSENTIAL (PRIMARY) HYPERTENSION Status: Chronic (6) Dyslipidemia Code(s): E78.5 - HYPERLIPIDEMIA, UNSPECIFIED Status: Chronic - Plan Continue dexamethasone, vitamin C and zinc. 10 units of Humulin R is being added to each bag of TPN. Continue Lantus. Continue ceftriaxone and azithromycin. Continue TPN.
[2020-06-28] MEDS: Donepezil HCl 5 MG TAB PO SCH (21:41)
[2020-06-28] MEDS ORDERED: [UNRECOGNIZED DRUG - OTHER] IV SCH (22:00)
[2020-06-28] MEDS ORDERED: HUMULIN R IV SCH (22:00)
[2020-06-28] MEDS: Multivitamins, Adult 10 ML, TRACE ELEMENT CONCENTRATE 1 ML in D15W-AA 5% w/o Lytes 2,00... IV SCH (22:00)
[2020-06-28] MEDS ORDERED: TRACE ELEMENT IV SCH (22:00)
[2020-06-28] MEDS ORDERED: MULTIVITAMINS IV SCH (22:00)
[2020-06-29] MEDS: HumaLOG 300 UNITS/3 ML VIAL SC PRN ×5 (00:39→21:57)
[2020-06-29] MEDS: MEROPENEM 1 GM/50 ML 1 GM in Premix Bag 1 BAG IVPB SCH ×3 (00:39→17:57)
[2020-06-29 07:44] LABS: PTT 30.7 sec (22.9-36.1); Prothrombin Time 13.7 sec (12.0-14.7)
[2020-06-29 07:48] LABS: ALT (SGPT) 46 U/L (8-55); AST (SGOT) 36 U/L (5-34); Albumin 2.7 g/dL (3.4-4.8); Alkaline Phosphatase 77 U/L (40-110); Anion Gap 11 mmol/L (10-20); BUN (Urea Nitrogen) 47 mg/dL (9.8-20.1); Bilirubin, Total 0.4 mg/dL (0.2-1.2); Calc. Creatinine Clearance 42 mL/min (70-130); Calcium 9.3 mg/dL (7.8-10.44); Carbon Dioxide 19 mmol/L (23-31); Cardiac Risk 10.8 (Less than 4.5); Cholesterol 184 mg/dl (< 200 Desired); Estimated GFR-MDRD 58; Globulin 3.6 g/dL (2.4-3.5); HDL Cholesterol 17 mg/dL (>60 Neg Risk); LDL Cholesterol, Calculated 99 mg/dL; Magnesium 2.2 mg/dL (1.6-2.6); Protein, Total 6.3 g/dL (6.0-8.3); Sodium 159 mmol/L (136-145); Triglycerides 338 mg/dL (Less than 150)
[2020-06-29 07:53] LABS: Chloride 132 mmol/L (98-107); Glucose 579 mg/dL (83-110); Phosphorus 1.1 mg/dL (2.3-4.7); Potassium 2.7 mmol/L (3.5-5.1)
[2020-06-29] MEDS ORDERED: Potassium Chloride 20 MEQ in Lactated Ringer's 1,000 ML IV SCH (08:15)
[2020-06-29] MEDS ORDERED: Potassium Phosphate 30 MMOL in Sodium Chloride 0.9% 250 ML 250 ML IVPB SCH (08:15)
[2020-06-29] MEDS: Dexamethasone 10 MG/ML VIAL SLOW IVP SCH (09:45)
[2020-06-29] MEDS: Enoxaparin Sodium 40 MG/0.4 ML SYRINGE SC SCH ×2 (09:45→21:42)
[2020-06-29] MEDS: Amlodipine 10 MG TAB PO SCH (09:46)
[2020-06-29] MEDS: Cholecalciferol 1,000 UNITS (25 MCG) TAB PO SCH (09:46)
[2020-06-29] MEDS: Ascorbic Acid 500 mg Chewable Tablet PO SCH (09:46)
[2020-06-29] MEDS: Ferrous Sulfate 325 MG TAB PO SCH (09:46)
[2020-06-29] MEDS: Zinc Sulfate 220 MG CAP PO SCH (09:47)
[2020-06-29] MEDS: Insulin Glargine 30 UNITS in Pre-Filled Syringe 1 EACH SC SCH (11:13)
--- NOTE | 2020-06-29 17:05 | PDOC.HOSPP ---
- Subjective Encounter Date: 06/29/20 Encounter Time: 13:30 Subjective: Pt seen for followup for Covid pneumonia. Patient is nonverbal, could not complete review of systems. - Objective Vital Signs & Weight: Vital Signs (12 hours) Temp Pulse Resp BP Pulse Ox 06/29/20 15:10 98.7 F 104 H 20 135/72 97 06/29/20 11:30 98.5 F 108 H 22 H 144/71 H 95 06/29/20 09:50 98.3 F 111 H 20 145/68 H 97 06/29/20 05:25 95 Weight Admit Weight 146 lb 4.8 oz Weight 137 lb 6.4 oz I&O: 06/28/20 06/29/20 06/30/20 06:59 06:59 06:59 Intake Total 4077 2345 Output Total 2450 2400 Balance 1627 -55 Result Diagrams: 06/25/20 05:15 06/29/20 07:14 Additional Labs: Accuchecks 06/29/20 06/29/20 06/28/20 11:17 06:14 21:54 POC Glucose 466 H 466 H 492 H 06/28/20 16:45 POC Glucose Greater than 500 H I reviewed patient's labs and MAR EKG Reviewed by me: Yes (Sinus tachycardia on telemetry) Hospitalist ROS - Review of Systems ROS unobtainable: due to mental status - Medication Medications: Active Medications Generic Name Dose Route Start Last Admin Trade Name Freq PRN Reason Stop Dose Admin Acetaminophen 650 mg 06/21/20 09:30 06/22/20 08:45 Acetaminophen 650 Mg Suppository [place] 650 mg Q8H PRN Administration Headache/Fever or Pain Amlodipine Besylate 10 mg 06/22/20 09:00 06/29/20 09:46 Amlodipine 10 Mg Tab PO Not Given DAILY MARY KATE Ascorbic Acid 1,000 mg 06/22/20 09:00 06/29/20 09:46 Ascorbic Acid 500 Mg Chewable Tablet PO Not Given DAILY [facility]ARY KATE Cholecalciferol 2,000 units 06/22/20 09:00 06/29/20 09:46 Cholecalciferol 1,000 Units (25 Mcg) Tab PO Not Given DAILY MARY KATE Dexamethasone 10 mg 06/25/20 09:00 06/29/20 09:45 Dexamethasone 10 Mg/Ml Vial SLOW IVP 10 mg DAILY [facility] Administration Donepezil HCl 5 mg 06/21/20 21:00 06/28/20 21:41 Donepezil Hcl 5 Mg Tab PO Not Given HS MARY KATE Enoxaparin Sodium 40 mg 06/20/20 21:00 06/29/20 09:45 Enoxaparin Sodium 40 Mg/0.4 Ml Syringe SC 40 mg 0900,2100 [facility] Administration Ferrous Sulfate 325 mg 06/22/20 08:00 06/29/20 09:46 Ferrous Sulfate 325 Mg Tab PO Not Given QAM-WM [facility] Meropenem 1 gm/ Device 50 mls @ 100 mls/hr 06/24/20 01:00 06/29/20 09:45 IVPB 50 mls 0100,0900,1700 [facility] Administration Insulin Glargine 30 units/ 0.3 mls @ 0 mls/hr 06/29/20 09:00 06/29/20 11:13 Miscellaneous Medication SC 0.3 mls QAM [facility]ARY KATE Administration Potassium Chloride 20 meq/ 1,010 mls @ 50 mls/hr 06/29/20 08:15 06/29/20 11:13 Lactated Ringer's IV 1,010 mls .[id number] MARY KATE Administration Insulin Human Lispro 0 units 06/25/20 20:17 06/29/20 00:39 Humalog 300 Units/3 Ml Vial SC 5 unit .BEDTIME SLIDING SC PRN Administration Bedtime Correctional Scale Insulin Human Lispro 0 units 06/27/20 18:16 06/29/20 11:20 Humalog 300 Units/3 Ml Vial SC 10 unit .MODERATE SLIDING SC PRN Administration Moderate Correctional Scale Labetalol HCl 10 mg 06/24/20 08:31 06/27/20 05:53 Labetalol Hcl 100 Mg/20 Ml Vial SLOW IVP 10 mg Q4H PRN Administration SBP Greater Than 170 Pantoprazole Sodium 40 mg 06/22/20 09:00 06/29/20 09:46 Pantoprazole 40 Mg Tab PO Not Given DAILY MARY KATE Sodium Chloride 10 ml 06/20/20 21:00 06/29/20 09:46 Flush - Normal Saline 10 Ml Syringe IVF 10 ml Q12HR [facility]ARY KATE Administration Zinc Sulfate 220 mg 06/22/20 09:00 06/29/20 09:47 Zinc Sulfate 220 Mg Cap PO Not Given DAILY MARY KATE - Exam General Appearance: ill appearing Eye: anicteric sclera ENT: moist mucosa Neck: supple Heart: RRR Respiratory: CTAB Gastrointestinal: non-tender Skin: no rashes Musculoskeletal: no muscle wasting Psychiatric: normal affect Hosp A/P (1) Pneumonia due to COVID-19 virus Code(s): U07.1 - COVID-19; J12.89 - OTHER VIRAL PNEUMONIA Status: Acute (2) Acute respiratory failure with hypoxia Code(s): J96.01 - ACUTE RESPIRATORY FAILURE WITH HYPOXIA Status: Acute (3) UTI (urinary tract infection) Status: Acute (4) Hypertension Code(s): I10 - ESSENTIAL (PRIMARY) HYPERTENSION Status: Chronic (5) DM type 2 (diabetes mellitus, type 2) Status: Chronic Qualifiers: Diabetes mellitus assisted insulin use: without ferry terminal agent use Diabetes mellitus complication status: without complication Qualified Code(s): E11.9 - Type 2 diabetes mellitus without complications (6) Dyslipidemia Code(s): E78.5 - HYPERLIPIDEMIA, UNSPECIFIED Status: Chronic - Plan Replace potassium for hypokalemia Replace phosphorus for hypophosphatemia. Patient is on dexamethasone, vitamin C and zinc. Increase to 20 units of Humulin R iadded to each bag of TPN. Increase Lantus to 30 units daily. Continue ceftriaxone and azithromycin. Continue TPN. Consult palliative care for discussion regarding goals of care. Recheck comprehensive metabolic panel.
[2020-06-29] MEDS: Sodium Bicarbonate 50 MEQ in Sterile Water Injection 1,000 ML IV SCH (18:35)
[2020-06-29 19:32] LABS: ALT (SGPT) 54 U/L (8-55); AST (SGOT) 42 U/L (5-34); Albumin 2.5 g/dL (3.4-4.8); Alkaline Phosphatase 77 U/L (40-110); Anion Gap 14 mmol/L (10-20); BUN (Urea Nitrogen) 46 mg/dL (9.8-20.1); Bilirubin, Total 0.5 mg/dL (0.2-1.2); Calc. Creatinine Clearance 42 mL/min (70-130); Calcium 8.7 mg/dL (7.8-10.44); Carbon Dioxide 17 mmol/L (23-31); Chloride 132 mmol/L (98-107); Estimated GFR-MDRD 58; Globulin 3.4 g/dL (2.4-3.5); Glucose 589 mg/dL (83-110); Phosphorus 2.6 mg/dL (2.3-4.7); Potassium 4.1 mmol/L (3.5-5.1); Protein, Total 5.9 g/dL (6.0-8.3); Sodium 159 mmol/L (136-145)
[2020-06-29] MEDS ORDERED: MULTIVITAMINS IV SCH (22:00)
[2020-06-29] MEDS ORDERED: HUMULIN R IV SCH (22:00)
[2020-06-29] MEDS ORDERED: [UNRECOGNIZED DRUG - OTHER] IV SCH (22:00)
[2020-06-29] MEDS ORDERED: MULTITRACE NEONATAL IV SCH (22:00)
[2020-06-29] MEDS: Donepezil HCl 5 MG TAB PO SCH (23:03)
[2020-06-30] MEDS: MEROPENEM 1 GM/50 ML 1 GM in Premix Bag 1 BAG IVPB SCH ×3 (00:48→18:17)
[2020-06-30] MEDS: HumaLOG 300 UNITS/3 ML VIAL SC PRN ×4 (01:39→18:18)
[2020-06-30] MEDS: Sodium Bicarbonate 50 MEQ in Sterile Water Injection 1,000 ML IV SCH ×2 (01:40→07:47)
[2020-06-30 05:56] LABS: INR-International Normal Ratio 1.1; PTT 27.4 sec (22.9-36.1); Prothrombin Time 14.6 sec (12.0-14.7)
[2020-06-30 06:27] LABS: Albumin 2.2 g/dL (3.4-4.8)
[2020-06-30 06:28] LABS: Chloride 120 mmol/L (98-107); Sodium 150 mmol/L (136-145)
[2020-06-30 06:29] LABS: Calcium 7.8 mg/dL (7.8-10.44); Potassium 3.2 mmol/L (3.5-5.1)
[2020-06-30 06:30] LABS: Globulin 2.5 g/dL (2.4-3.5); Glucose 328 mg/dL (83-110); Protein, Total 4.7 g/dL (6.0-8.3); Triglycerides 262 mg/dL (Less than 150)
[2020-06-30 06:31] LABS: Anion Gap 14 mmol/L (10-20); Carbon Dioxide 19 mmol/L (23-31)
[2020-06-30 06:32] LABS: Bilirubin, Total 0.6 mg/dL (0.2-1.2)
[2020-06-30 06:33] LABS: Alkaline Phosphatase 67 U/L (40-110); Calc. Creatinine Clearance 54 mL/min (70-130); Estimated GFR-MDRD 78
[2020-06-30 06:34] LABS: BUN (Urea Nitrogen) 45 mg/dL (9.8-20.1)
[2020-06-30 06:35] LABS: AST (SGOT) 55 U/L (5-34); Cholesterol 156 mg/dl (< 200 Desired); HDL Cholesterol 14 mg/dL (>60 Neg Risk); LDL Cholesterol, Calculated 90 mg/dL; Magnesium 1.6 mg/dL (1.6-2.6)
[2020-06-30 06:36] LABS: ALT (SGPT) 60 U/L (8-55); Cardiac Risk 11.1 (Less than 4.5); Phosphorus 1.6 mg/dL (2.3-4.7)
[2020-06-30] MEDS ORDERED: Potassium Phosphate 30 MMOL in Sodium Chloride 0.9% 250 ML 250 ML IVPB SCH (07:15)
[2020-06-30] MEDS: Ascorbic Acid 500 mg Chewable Tablet PO SCH (10:21)
[2020-06-30] MEDS: Ferrous Sulfate 325 MG TAB PO SCH (10:21)
[2020-06-30] MEDS: Amlodipine 10 MG TAB PO SCH (10:21)
[2020-06-30] MEDS: Cholecalciferol 1,000 UNITS (25 MCG) TAB PO SCH (10:21)
[2020-06-30] MEDS: Zinc Sulfate 220 MG CAP PO SCH (10:22)
[2020-06-30] MEDS: Insulin Glargine 30 UNITS in Pre-Filled Syringe 1 EACH SC SCH (10:34)
[2020-06-30] MEDS: Enoxaparin Sodium 40 MG/0.4 ML SYRINGE SC SCH ×2 (10:34→20:36)
[2020-06-30] MEDS: Dexamethasone 10 MG/ML VIAL SLOW IVP SCH (10:35)
[2020-06-30] MEDS ORDERED: MULTITRACE NEONATAL IV SCH (14:00)
[2020-06-30] MEDS ORDERED: MULTIVITAMINS IV SCH (14:00)
[2020-06-30] MEDS ORDERED: INSULIN REGULAR IV SCH (14:00)
[2020-06-30] MEDS ORDERED: [UNRECOGNIZED DRUG - OTHER] IV SCH (14:00)
--- NOTE | 2020-06-30 16:07 | PDOC.HOSPP ---
- Subjective Encounter Date: 06/30/20 Encounter Time: 09:00 Subjective: Patient seen for follow-up regarding COVID-19 pneumonia. She is not answering questions, could not complete review of systems. - Objective Vital Signs & Weight: Vital Signs (12 hours) Temp Pulse Resp BP Pulse Ox 06/30/20 15:19 97.6 F 71 36 H 125/64 98 06/30/20 12:33 97.9 F 78 20 109/56 L 100 06/30/20 10:21 89 06/30/20 10:00 98.6 F 76 28 H 117/75 99 06/30/20 05:18 97 Weight Admit Weight 146 lb 4.8 oz Weight 142 lb 3.2 oz I&O: 06/29/20 06/30/20 07/01/20 06:59 06:59 06:59 Intake Total 2345 3711 Output Total 2400 1600 Balance -55 2111 Result Diagrams: 06/25/20 05:15 06/30/20 05:31 Additional Labs: Accuchecks 06/30/20 06/30/20 06/29/20 12:33 06:03 23:55 POC Glucose 376 H 329 H 315 H 06/29/20 06/29/20 21:46 00:00 POC Glucose 378 H 396 H Labs and MAR reviewed by me EKG Reviewed by me: Yes (Normal sinus rhythm on telemetry) Hospitalist ROS - Review of Systems ROS unobtainable: due to mental status - Medication Medications: Active Medications Generic Name Dose Route Start Last Admin Trade Name Freq PRN Reason Stop Dose Admin Acetaminophen 650 mg 06/21/20 09:30 06/22/20 08:45 Acetaminophen 650 Mg Suppository [place] 650 mg Q8H PRN Administration Headache/Fever or Pain Amlodipine Besylate 10 mg 06/22/20 09:00 06/30/20 10:21 Amlodipine 10 Mg Tab PO Not Given DAILY MARY KATE Ascorbic Acid 1,000 mg 06/22/20 09:00 06/30/20 10:21 Ascorbic Acid 500 Mg Chewable Tablet PO Not Given DAILY MARY KATE Cholecalciferol 2,000 units 06/22/20 09:00 06/30/20 10:21 Cholecalciferol 1,000 Units (25 Mcg) Tab PO Not Given DAILY MARY KATE Dexamethasone 10 mg 06/25/20 09:00 06/30/20 10:35 Dexamethasone 10 Mg/Ml Vial SLOW IVP 10 mg DAILY MARY KATE Administration Donepezil HCl 5 mg 06/21/20 21:00 06/29/20 23:03 Donepezil Hcl 5 Mg Tab PO Not Given HS MARY KATE Enoxaparin Sodium 40 mg 06/20/20 21:00 06/30/20 10:34 Enoxaparin Sodium 40 Mg/0.4 Ml Syringe SC 40 mg 0900,2100 MARY KATE Administration Ferrous Sulfate 325 mg 06/22/20 08:00 06/30/20 10:21 Ferrous Sulfate 325 Mg Tab PO Not Given QAM-WM MARY KATE Meropenem 1 gm/ Device 50 mls @ 100 mls/hr 06/24/20 01:00 06/30/20 10:35 IVPB 50 mls 0100,0900,1700 [facility] Administration Insulin Glargine 30 units/ 0.3 mls @ 0 mls/hr 06/29/20 09:00 06/30/20 10:34 Miscellaneous Medication SC 0.3 mls QAM MARY KATE Administration Sodium Bicarbonate 50 meq/ 1,050 mls @ 200 mls/hr 06/29/20 18:00 06/30/20 0 7:47 Sterile Water IV 07/04/20 23:14 1,050 mls INF MARY KATE Administration Multivitamins 10 ml/ Chromium/ 2,270.2 mls @ 94.592 mls/hr 06/30/20 14:00 06/30/20 14:36 Copper/Manganese/Zinc 10 ml/ IV 2,270.2 mls Insulin Human Regular 20 units 1400 MARY KATE Administration / Amino Acids/Electrolytes/ Fat Emulsion Intravenous Insulin Human Lispro 0 units 06/25/20 20:17 06/29/20 00:39 Humalog 300 Units/3 Ml Vial SC 5 unit .BEDTIME SLIDING SC PRN Administration Bedtime Correctional Scale Insulin Human Lispro 0 units 06/27/20 18:16 06/30/20 14:40 Humalog 300 Units/3 Ml Vial SC 10 unit .MODERATE SLIDING SC PRN Administration Moderate Correctional Scale Labetalol HCl 10 mg 06/24/20 08:31 06/27/20 05:53 Labetalol Hcl 100 Mg/20 Ml Vial SLOW IVP 10 mg Q4H PRN Administration SBP Greater Than 170 Pantoprazole Sodium 40 mg 06/22/20 09:00 06/30/20 10:22 Pantoprazole 40 Mg Tab PO Not Given DAILY MARY KATE Sodium Chloride 10 ml 06/20/20 21:00 06/30/20 10:35 Flush - Normal Saline 10 Ml Syringe IVF 10 ml Q12HR MARY KATE Administration Zinc Sulfate 220 mg 06/22/20 09:00 06/30/20 10:22 Zinc Sulfate 220 Mg Cap PO Not Given DAILY MARY KATE - Exam General Appearance: awake alert Eye: anicteric sclera ENT: no oropharyngeal lesions Neck: supple Heart: RRR Respiratory: CTAB Gastrointestinal: soft, non-tender Skin: no rashes Psychiatric: normal affect Hosp A/P (1) Pneumonia due to COVID-19 virus Code(s): U07.1 - COVID-19; J12.89 - OTHER VIRAL PNEUMONIA Status: Acute (2) Acute respiratory failure with hypoxia Code(s): J96.01 - ACUTE RESPIRATORY FAILURE WITH HYPOXIA Status: Acute (3) UTI (urinary tract infection) Status: Acute (4) Hypertension Code(s): I10 - ESSENTIAL (PRIMARY) HYPERTENSION Status: Chronic (5) DM type 2 (diabetes mellitus, type 2) Status: Chronic Qualifiers: Diabetes mellitus mcc insulin use: without termite helper use Diabetes mellitus complication status: without complication Qualified Code(s): E11.9 - Type 2 diabetes mellitus without complications (6) Dyslipidemia Code(s): E78.5 - HYPERLIPIDEMIA, UNSPECIFIED Status: Chronic - Plan Patient is a pleasant 89-year-old lady who was admitted to the hospital on June 20, 2020 for Covid pneumonia. Patient was treated with dexamethasone, vitamin C and zinc. She needed high flow oxygen and continues to need high flow oxygen. Oral intake is poor. NG tube could not be placed secondary to high flow oxygen. She was initially treated with PPN, subsequently started on TPN after placement of a PICC line. Today I changed her TPN to TPN with lites. Nephrology service is also following her for dehydration. Palliative care service also following, will discuss nutritional options with family. We will also need to discuss goals of care, including possible hospice. Replace potassium for hypokalemia Replace phosphorus for hypophosphatemia. Continue dexamethasone, vitamin C and zinc. 20 units of Humulin R iadded to each bag of TPN. Increase Lantus to 35 units daily. Continue ceftriaxone and azithromycin. Continue TPN.
--- NOTE | 2020-06-30 16:10 | PDOC.NEPPN ---
- Subjective Encounter Date: 06/30/20 Subjective: Seen in follow up for electrolyte derangements. Still non verbal and lethargic. - Objective Vital Signs & Weight: Vital Signs (12 hours) Temp Pulse Resp BP Pulse Ox 06/30/20 15:19 97.6 F 71 36 H 125/64 98 06/30/20 12:33 97.9 F 78 20 109/56 L 100 06/30/20 10:21 89 06/30/20 10:00 98.6 F 76 28 H 117/75 99 06/30/20 05:18 97 Weight Admit Weight 146 lb 4.8 oz Weight 142 lb 3.2 oz I&O: 06/29/20 06/30/20 07/01/20 06:59 06:59 06:59 Intake Total 2345 3711 Output Total 2400 1600 Balance -55 2111 Result Diagrams: 06/25/20 05:15 06/30/20 05:31 Additional Labs: Accuchecks 06/30/20 06/30/20 06/29/20 12:33 06:03 23:55 POC Glucose 376 H 329 H 315 H 06/29/20 06/29/20 21:46 00:00 POC Glucose 378 H 396 H Nephrology ROS - Medication Medications: Active Medications Generic Name Dose Route Start Last Admin Trade Name Freq PRN Reason Stop Dose Admin Acetaminophen 650 mg 06/21/20 09:30 06/22/20 08:45 Acetaminophen 650 Mg Suppository [place] 650 mg Q8H PRN Administration Headache/Fever or Pain Amlodipine Besylate 10 mg 06/22/20 09:00 06/30/20 10:21 Amlodipine 10 Mg Tab PO Not Given DAILY [facility] Ascorbic Acid 1,000 mg 06/22/20 09:00 06/30/20 10:21 Ascorbic Acid 500 Mg Chewable Tablet PO Not Given DAILY [facility] Cholecalciferol 2,000 units 06/22/20 09:00 06/30/20 10:21 Cholecalciferol 1,000 Units (25 Mcg) Tab PO Not Given DAILY [facility] Dexamethasone 10 mg 06/25/20 09:00 06/30/20 10:35 Dexamethasone 10 Mg/Ml Vial SLOW IVP 10 mg DAILY [facility] Administration Donepezil HCl 5 mg 06/21/20 21:00 06/29/20 23:03 Donepezil Hcl 5 Mg Tab PO Not Given HS [facility]ARY KATE Enoxaparin Sodium 40 mg 06/20/20 21:00 06/30/20 10:34 Enoxaparin Sodium 40 Mg/0.4 Ml Syringe SC 40 mg 0900,2100 MARY KATE Administration Ferrous Sulfate 325 mg 06/22/20 08:00 06/30/20 10:21 Ferrous Sulfate 325 Mg Tab PO Not Given QAM-WM [facility] KATE Meropenem 1 gm/ Device 50 mls @ 100 mls/hr 06/24/20 01:00 06/30/20 10:35 IVPB 50 mls 0100,0900,1700 MARY KATE Administration Insulin Glargine 30 units/ 0.3 mls @ 0 mls/hr 06/29/20 09:00 06/30/20 10:34 Miscellaneous Medication SC 0.3 mls QAM MARY KATE Administration Sodium Bicarbonate 50 meq/ 1,050 mls @ 200 mls/hr 06/29/20 18:00 06/30/20 07:47 Sterile Water IV 07/04/20 23:14 1,050 mls INF [facility] Administration Multivitamins 10 ml/ Chromium/ 2,270.2 mls @ 94.592 mls/hr 06/30/20 14:00 06/30/20 14:36 Copper/Manganese/Zinc 10 ml/ IV 2,270.2 mls Insulin Human Regular 20 units 1400 MARY KATE Administration / Amino Acids/Electrolytes/ Fat Emulsion Intravenous Insulin Human Lispro 0 units 06/25/20 20:17 06/29/20 00:39 Humalog 300 Units/3 Ml Vial SC 5 unit .BEDTIME SLIDING SC PRN Administration Bedtime Correctional Scale Insulin Human Lispro 0 units 06/27/20 18:16 06/30/20 14:40 Humalog 300 Units/3 Ml Vial SC 10 unit .MODERATE SLIDING SC PRN Administration Moderate Correctional Scale Labetalol HCl 10 mg 06/24/20 08:31 06/27/20 05:53 Labetalol Hcl 100 Mg/20 Ml Vial SLOW IVP 10 mg Q4H PRN Administration SBP Greater Than 170 Pantoprazole Sodium 40 mg 06/22/20 09:00 06/30/20 10:22 Pantoprazole 40 Mg Tab PO Not Given DAILY [facility] Sodium Chloride 10 ml 06/20/20 21:00 06/30/20 10:35 Flush - Normal Saline 10 Ml Syringe IVF 10 ml Q12HR M[facility] KATE Administration Zinc Sulfate 220 mg 06/22/20 09:00 06/30/20 10:22 Zinc Sulfate 220 Mg Cap PO Not Given DAILY [facility] - Exam General - other findings: Lethargic Eye: anicteric sclera ENT: normocephalic atraumatic, dry oral mucosa Neck: no JVD Respiratory: tachypneic Respiratory - other findings: Fair air entry bilaterally with scattered transmitted sound. Cardiovascular: RRR Gastrointestinal: soft, non-distended, normal bowel sounds Extremities: no edema Neurological: CN's grossly intact Neurological - other findings: Lethargic. Nephrology Results - Labs Result Diagrams: 06/25/20 05:15 06/30/20 05:31 Lab results: WBC 8.8 thou/uL (4.8-10.8) 06/25/20 05:15 Hgb 14.5 g/dL (12.0-16.0) 06/25/20 05:15 Hct 43.2 % (36.0-47.0) 06/25/20 05:15 MCV 98.7 fL (78.0-98.0) H 06/25/20 05:15 Plt Count 228 thou/uL (130-400) 06/25/20 05:15 Neutrophils % 84.4 % (42.0-75.0) H 06/25/20 05:15 Band Neuts % (Manual) 20 % (5-11) H 06/23/20 04:27 ABG pH 7.43 (7.35-7.45) 06/22/20 16:45 ABG pCO2 29.0 mmHg (35.0-45.0) L 06/22/20 16:45 ABG pO2 51.3 mmHg (> 60.0) L* 06/22/20 16:45 Sodium 150 mmol/L (136-145) H 06/30/20 05:31 Potassium 3.2 mmol/L (3.5-5.1) L 06/30/20 05:31 Chloride 120 mmol/L (98-107) H 06/30/20 05:31 Carbon Dioxide 19 mmol/L (23-31) L 06/30/20 05:31 BUN 45 mg/dL (9.8-20.1) H 06/30/20 05:31 Creatinine 0.71 mg/dL (0.6-1.1) 06/30/20 05:31 Glucose 328 mg/dL (83-110) H 06/30/20 05:31 Lactic Acid 1.8 mmol/L (0.5-2.2) 06/20/20 11:35 Calcium 7.8 mg/dL (7.8-10.44) 06/30/20 05:31 Total Bilirubin 0.6 mg/dL (0.2-1.2) 06/30/20 05:31 AST 55 U/L (5-34) H 06/30/20 05:31 ALT 60 U/L (8-55) H 06/30/20 05:31 Alkaline Phosphatase 67 U/L (40-110) 06/30/20 05:31 Creatine Kinase 32 U/L (29-168) 06/20/20 08:26 CK-MB (CK-2) 0.5 ng/mL (0-6.6) 06/20/20 08:26 Troponin I 0.090 ng/mL (< 0.028) H 06/20/20 14:50 C-Reactive Protein 1.33 mg/dL (= or < 0.5) H 06/29/20 07:00 B-Natriuretic Peptide 32.5 pg/mL (0-100) 06/20/20 08:26 Serum Total Protein 4.7 g/dL (6.0-8.3) L 06/30/20 05:31 Albumin 2.2 g/dL (3.4-4.8) L 06/30/20 05:31 Lipase 50 U/L (8-78) 06/20/20 08:26 Urine Ketones Trace mg/dL (Negative) A 06/20/20 09:16 Urine Blood Moderate (Negative) A 06/20/20 09:16 Urine Nitrite Negative (Negative) 06/20/20 09:16 Ur Leukocyte Esterase Moderate (Negative) H 06/20/20 09:16 Urine RBC 4-6 HPF (0-3) A 06/20/20 09:16 Urine WBC Greater Than 50 HPF (0-3) A 06/20/20 09:16 Ur Squamous Epith Cells 0-3 HPF (0-3) 06/20/20 09:16 Urine Bacteria 4+ HPF (None Seen) A 06/20/20 09:16 Sodium 150 mmol/L (136-145) H 06/30/20 05:31 Potassium 3.2 mmol/L (3.5-5.1) L 06/30/20 05:31 Chloride 120 mmol/L (98-107) H 06/30/20 05:31 Carbon Dioxide 19 mmol/L (23-31) L 06/30/20 05:31 Anion Gap 14 mmol/L (10-20) 06/30/20 05:31 BUN 45 mg/dL (9.8-20.1) H 06/30/20 05:31 Creatinine 0.71 mg/dL (0.6-1.1) 06/30/20 05:31 Glucose 328 mg/dL (83-110) H 06/30/20 05:31 Calcium 7.8 mg/dL (7.8-10.44) 06/30/20 05:31 Phosphorus 1.6 mg/dL (2.3-4.7) L 06/30/20 05:31 Magnesium 1.6 mg/dL (1.6-2.6) 06/30/20 05:31 Albumin 2.2 g/dL (3.4-4.8) L 06/30/20 05:31 Nephrology AP PN - Plan ASSESSMENT Hypernatremia: Due to free water defict. Improving with hypotonic solution. Metabolic acidosis. Hypokalemia Hypophosphatemia: persistent DM with hyperglycemia. Covid pneumonia on treatment. Acute respiratory failure with hypoxia. Plan Continue Sterile water with 50 meq of sodium bicarbonate at 50 cc/hr. Give another dose of potassium phosphate. Recommend NG tube for entereal nutrition. This will allow for adequate free water provision. Continue other treatments. Recheck BMP later today and adjust fluid therapy as appropriate. Glycemic management as per Primary attending.
[2020-06-30] MEDS ORDERED: Insulin Glargine 5 UNITS in Pre-Filled Syringe 1 EACH SC SCH (16:15)
[2020-06-30 16:41] LABS: Anion Gap 13 mmol/L (10-20); BUN (Urea Nitrogen) 46 mg/dL (9.8-20.1); Calc. Creatinine Clearance 48 mL/min (70-130); Calcium 7.3 mg/dL (7.8-10.44); Carbon Dioxide 20 mmol/L (23-31); Chloride 111 mmol/L (98-107); Estimated GFR-MDRD 66; Potassium 4.4 mmol/L (3.5-5.1); Sodium 140 mmol/L (136-145)
[2020-06-30 16:45] LABS: Glucose 554 mg/dL (83-110)
--- NOTE | 2020-06-30 16:51 | CON ---
DATE OF CONSULTATION: 06/29/2020 SERVICE: Nephrology. REASON FOR CONSULTATION: Severe hypernatremia and hypokalemia. REQUESTING PHYSICIAN: Dr. Hesham Lott. CHIEF COMPLAINT: Altered mental status. HISTORY OF PRESENT ILLNESS: An 89-year-old female, alf resident with known history of dementia, who was admitted due to altered mental status associated with fever and increasing oxygen requirement. Further evaluation revealed COVID infection and the patient has been receiving treatment in the hospital for that. Hospital course was complicated by hypernatremia, hypokalemia, necessitating Nephrology consult. The patient is nonverbal and the above history was obtained from review of medical record. She is currently on high-flow oxygen supplementation. PAST MEDICAL HISTORY: 1. Dementia. 2. Hyperlipidemia. 3. Hypercholesterolemia. 4. CKD, stage 2 to 3. 5. Gastroesophageal reflux disease. 6. Alzheimer's dementia. PAST SURGICAL HISTORY: 1. Appendectomy. 2. Right femoral fracture repair. FAMILY HISTORY: Could not be obtained due to the patient's condition. SOCIAL HISTORY: The patient prior to hospitalization was a alf resident. ALLERGIES: THE FOLLOWING ARE REPORTED ALLERGIES AND ADVERSE REACTION. 1. CODEINE. 2. IODINE AND IODINE CONTAINING PRODUCTS. 3. SULFONAMIDE. 4. HYDROCODONE. 5. PROPOXYPHENE NAPSYLATE. 6. SIMVASTATIN. 7. TRAMADOL. CURRENT HOSPITAL MEDICATIONS: 1. TPN. 2. Insulin Lantus 30 units daily in the morning. 3. Lactated Ringer's at 50 mL/h. 4. Meropenem 1 g daily. 5. Amlodipine 10 mg daily. 6. Ascorbic acid 1000 mg daily. 7. Vitamin D3 daily. 8. Dexamethasone 10 mg IV daily. 9. Aricept 5 mg p.o. daily at bedtime. 10. Lovenox 40 mg subcutaneously q.12 hours. 11. Ferrous sulfate 325 mg daily. 12. Protonix 40 mg p.o. daily. 13. Zinc sulfate 220 mg p.o. daily. REVIEW OF SYSTEMS: Review of system could not be performed due to the patient's condition. PHYSICAL EXAMINATION: VITAL SIGNS: Temperature 98.7, pulse 104, respiratory rate 20, SpO2 of 97% on 40% FiO2 via high oxygen supplementation, blood pressure is 135/72. I and O in the last 24 hours showed total intake of 2245 with output of 2400. GENERAL: Lethargic, elderly female, in mild respiratory distress. Afebrile, anicteric, and acyanotic. HEENT: Normocephalic, atraumatic. Oral mucosa is dry. NECK: Supple with no obvious JVD. CARDIOVASCULAR: Regular rhythm and rate with normal heart sounds. RESPIRATORY: Fair air entry bilaterally with scattered transmitted breath sounds and few crackles. No obvious rhonchi were appreciated. Work of breathing is mildly increased. GI: Full, soft, nondistended with normal bowel sounds. EXTREMITIES: Grossly normal looking atraumatic with no obvious edema or erythema. INSPECTOR POISING: The patient is lethargic. She wakes up with stimulation. Nonverbal. Face is symmetrical with grossly normal cranial nerves. Attempts to move extremities, but weakly. DIAGNOSTIC DATA: CMP at earlier today showed sodium 159, potassium 2.7, chloride 132, CO2 of 19, BUN 47, creatinine 0.91, glucose 579, calcium 9.3, phosphorus 1.1, magnesium 2.2. Total bilirubin 0.1, AST 36, ALT 46, alkaline phosphatase 77, total protein 6.3, albumin 2.7. Of note, on presentation, the patient had creatinine of 1.45, which has improved to 0.9 currently. CBC; most current CBC on June 25 showed WBC of 8.8, hemoglobin of 14.5, MCV of 98.7, and platelets of 228. Urinalysis performed on presentation on June 20 showed yellow turbid urine with pH of 6.0, specific gravity of 1.020, positive protein, ketone, and blood with negative nitrite and bilirubin. Microscopy showed 4 to 6 rbc and greater than 50 wbc with 4+ bacteria. Urine culture grew Klebsiella pneumoniae and Enterococcus faecalis. ASSESSMENT: 1. Hypernatremia: This is due to volume depletion with excess free water deficit. The patient is breathing through an open mouth with associated marked insensible losses. She is also n.p.o., only getting TPN currently. 2. Hypokalemia: Due to poor oral intake. 3. Hypophosphatemia: Due to poor oral intake. 4. Metabolic acidosis: This is most likely due to IV fluid therapy, mostly hyperchloremic in nature. 5. Acute kidney injury: Resolved. 6. Diabetes mellitus, on insulin. PLAN: 1. We will discontinue lactated Ringer's. 2. We will start sterile water with 50 mEq of sodium bicarbonate and run it at 200 mL/hour to provide both alkali therapy and free water for correction of hypernatremia. 3. We will also replete potassium and phosphorus with potassium phosphate. 4. We will monitor intake and output. 5. Better glycemic control is recommended to help reduce hyperglycemia-induced diuresis. 6. We will monitor electrolytes and correct further as indicated. Many thanks for involving us in the care of this patient. We will follow along with you. Job ID: [id number]
[2020-06-30] MEDS ORDERED: Sodium Bicarbonate 50 MEQ in Sterile Water Injection 1,000 ML IV SCH (17:17)
[2020-06-30] MEDS: Donepezil HCl 5 MG TAB PO SCH (20:36)
[2020-07-01] MEDS: MEROPENEM 1 GM/50 ML 1 GM in Premix Bag 1 BAG IVPB SCH ×3 (00:14→18:09)
[2020-07-01 04:55] LABS: Prothrombin Time 13.7 sec (12.0-14.7)
[2020-07-01 05:26] LABS: ALT (SGPT) 65 U/L (8-55); AST (SGOT) 33 U/L (5-34); Albumin 2.2 g/dL (3.4-4.8); Alkaline Phosphatase 67 U/L (40-110); Anion Gap 12 mmol/L (10-20); BUN (Urea Nitrogen) 43 mg/dL (9.8-20.1); Bilirubin, Total 0.5 mg/dL (0.2-1.2); Calc. Creatinine Clearance 56 mL/min (70-130); Calcium 7.8 mg/dL (7.8-10.44); Carbon Dioxide 22 mmol/L (23-31); Cardiac Risk 10.6 (Less than 4.5); Chloride 109 mmol/L (98-107); Cholesterol 169 mg/dl (< 200 Desired); Estimated GFR-MDRD 78; Globulin 2.6 g/dL (2.4-3.5); Glucose 487 mg/dL (83-110); HDL Cholesterol 16 mg/dL (>60 Neg Risk); LDL Cholesterol, Calculated 100 mg/dL; Magnesium 1.7 mg/dL (1.6-2.6); Phosphorus 2.8 mg/dL (2.3-4.7); Potassium 3.4 mmol/L (3.5-5.1); Protein, Total 4.8 g/dL (6.0-8.3); Sodium 140 mmol/L (136-145); Triglycerides 263 mg/dL (Less than 150)
[2020-07-01] MEDS: HumaLOG 300 UNITS/3 ML VIAL SC PRN ×4 (06:14→18:40)
[2020-07-01] MEDS ORDERED: Potassium Phosphate 15 MMOL in Sodium Chloride 0.9% 250 ML 250 ML IVPB SCH (06:30)
[2020-07-01] MEDS ORDERED: Sodium Chloride 0.65% Nasal 44 ML BOT EA NARE PRN (08:00)
[2020-07-01] MEDS ORDERED: Ondansetron PF 4 MG/2 ML Vial IVP PRN (08:00)
[2020-07-01] MEDS ORDERED: Senokot S 8.6-50 MG TAB PO PRN (08:00)
[2020-07-01] MEDS ORDERED: Ondansetron ODT 4 MG TAB PO PRN (08:00)
[2020-07-01] MEDS ORDERED: Cepastat Lozenges 1 LOZ PO PRN (08:00)
[2020-07-01] MEDS ORDERED: Diabetic Tussin 200 MG/10 ML UDCUP PO PRN (08:00)
[2020-07-01] MEDS ORDERED: Bisacodyl 10 MG SUPP PR PRN (08:00)
[2020-07-01] MEDS ORDERED: Loratadine 10 MG TAB PO PRN (08:00)
[2020-07-01] MEDS ORDERED: Loperamide HCl 2 MG CAP PO PRN (08:00)
[2020-07-01] MEDS ORDERED: Calcium Carbonate 500 MG ChewTAB PO PRN (08:00)
[2020-07-01] MEDS ORDERED: Benzonatate 100 MG CAP PO PRN (08:00)
[2020-07-01] MEDS ORDERED: Polyethylene Glycol 3350 17 GM Packet PO PRN (08:01)
[2020-07-01] MEDS ORDERED: Acetaminophen 325 MG TAB PO PRN (08:14)
[2020-07-01] MEDS ORDERED: Insulin Glargine 5 UNITS in Pre-Filled Syringe 1 EACH SC SCH (09:00)
[2020-07-01] MEDS ORDERED: Ascorbic Acid 500 mg Chewable Tablet PO SCH (09:00)
[2020-07-01] MEDS ORDERED: Famotidine/PF 20 mg/2ml Vial SLOW IVP SCH (09:00)
--- NOTE | 2020-07-01 09:18 | PDOC.NEPPN ---
- Subjective Encounter Date: 07/01/20 Encounter Time: 09:14 Subjective: No new problem. Still non conversational. Still on TPN - Objective Vital Signs & Weight: Vital Signs (12 hours) Temp Pulse Resp BP Pulse Ox 07/01/20 04:00 97.9 F 60 18 134/78 98 06/30/20 23:54 96.8 F L 103 H 19 105/59 L 97 Weight Admit Weight 146 lb 4.8 oz Weight 146 lb 6.4 oz I&O: 06/30/20 07/01/20 07/02/20 06:59 06:59 06:59 Intake Total 3711 5015 Output Total 1600 1750 Balance 2111 3265 Result Diagrams: 06/25/20 05:15 07/01/20 04:27 Additional Labs: Accuchecks 06/30/20 06/30/20 23:58 12:33 POC Glucose 439 H 376 H Nephrology ROS - Medication Medications: Active Medications Generic Name Dose Route Start Last Admin Trade Name Freq PRN Reason Stop Dose Admin Amlodipine Besylate 10 mg 06/22/20 09:00 06/30/20 10:21 Amlodipine 10 Mg Tab PO Not Given DAILY [facility] Ascorbic Acid 1,000 mg 06/22/20 09:00 06/30/20 10:21 Ascorbic Acid 500 Mg Chewable Tablet PO Not Given DAILY [facility] Cholecalciferol 2,000 units 06/22/20 09:00 06/30/20 10:21 Cholecalciferol 1,000 Units (25 Mcg) Tab PO Not Given DAILY [facility] Donepezil HCl 5 mg 06/21/20 21:00 06/30/20 20:36 Donepezil Hcl 5 Mg Tab PO Not Given HS [facility] Enoxaparin Sodium 40 mg 06/20/20 21:00 06/30/20 20:36 Enoxaparin Sodium 40 Mg/0.4 Ml Syringe SC 40 mg 0900,2100 M[facility] KATE Administration Ferrous Sulfate 325 mg 06/22/20 08:00 06/30/20 10:21 Ferrous Sulfate 325 Mg Tab PO Not Given QAM-WM [facility] Meropenem 1 gm/ Device 50 mls @ 100 mls/hr 06/24/20 01:00 07/01/20 00:14 IVPB 50 mls 0100,0900,1700 M[facility] KATE Administration Multivitamins 10 ml/ Chromium/ 2,270.2 mls @ 94.592 mls/hr 06/30/20 14:00 06/30/20 14:36 Copper/Manganese/Zinc 10 ml/ IV 2,270.2 mls Insulin Human Regular 20 units 1400 M[facility] KATE Administration / Amino Acids/Electrolytes/ Fat Emulsion Intravenous Insulin Human Lispro 0 units 06/25/20 20:17 06/29/20 00:39 Humalog 300 Units/3 Ml Vial SC 5 unit .BEDTIME SLIDING SC PRN Administration Bedtime Correctional Scale Labetalol HCl 10 mg 06/24/20 08:31 06/27/20 05:53 Labetalol Hcl 100 Mg/20 Ml Vial SLOW IVP 10 mg Q4H PRN Administration SBP Greater Than 170 Sodium Chloride 10 ml 06/20/20 21:00 06/30/20 20:37 Flush - Normal Saline 10 Ml Syringe IVF 10 ml Q12HR [facility] KATE Administration Sodium Chloride 10 ml 06/20/20 10:30 07/01/20 00:14 Flush - Normal Saline 10 Ml Syringe IVF 10 ml PRN PRN Administration Saline Flush Zinc Sulfate 220 mg 06/22/20 09:00 06/30/20 10:22 Zinc Sulfate 220 Mg Cap PO Not Given DAILY [facility] - Exam General - other findings: lethargic. Eye: anicteric sclera ENT: normocephalic atraumatic, dry oral mucosa Respiratory - other findings: fair air entry entry with transmitted breath sound. Cardiovascular: RRR Gastrointestinal: soft, non-tender, non-distended, normal bowel sounds Extremities: no edema Neurological: CN's grossly intact Neurological - other findings: lethargic. Nephrology Results - Labs Result Diagrams: 06/25/20 05:15 07/01/20 04:27 Lab results: WBC 8.8 thou/uL (4.8-10.8) 06/25/20 05:15 Hgb 14.5 g/dL (12.0-16.0) 06/25/20 05:15 Hct 43.2 % (36.0-47.0) 06/25/20 05:15 MCV 98.7 fL (78.0-98.0) H 06/25/20 05:15 Plt Count 228 thou/uL (130-400) 06/25/20 05:15 Neutrophils % 84.4 % (42.0-75.0) H 06/25/20 05:15 Band Neuts % (Manual) 20 % (5-11) H 06/23/20 04:27 ABG pH 7.43 (7.35-7.45) 06/22/20 16:45 ABG pCO2 29.0 mmHg (35.0-45.0) L 06/22/20 16:45 ABG pO2 51.3 mmHg (> 60.0) L* 06/22/20 16:45 Sodium 140 mmol/L (136-145) 07/01/20 04:27 Potassium 3.4 mmol/L (3.5-5.1) L 07/01/20 04:27 Chloride 109 mmol/L (98-107) H 07/01/20 04:27 Carbon Dioxide 22 mmol/L (23-31) L 07/01/20 04:27 BUN 43 mg/dL (9.8-20.1) H 07/01/20 04:27 Creatinine 0.71 mg/dL (0.6-1.1) 07/01/20 04:27 Glucose 487 mg/dL (83-110) H 07/01/20 04:27 Lactic Acid 1.8 mmol/L (0.5-2.2) 06/20/20 11:35 Calcium 7.8 mg/dL (7.8-10.44) 07/01/20 04:27 Total Bilirubin 0.5 mg/dL (0.2-1.2) 07/01/20 04:27 AST 33 U/L (5-34) 07/01/20 04:27 ALT 65 U/L (8-55) H 07/01/20 04:27 Alkaline Phosphatase 67 U/L (40-110) 07/01/20 04:27 Creatine Kinase 32 U/L (29-168) 06/20/20 08:26 CK-MB (CK-2) 0.5 ng/mL (0-6.6) 06/20/20 08:26 Troponin I 0.090 ng/mL (< 0.028) H 06/20/20 14:50 C-Reactive Protein 1.33 mg/dL (= or < 0.5) H 06/29/20 07:00 B-Natriuretic Peptide 32.5 pg/mL (0-100) 06/20/20 08:26 Serum Total Protein 4.8 g/dL (6.0-8.3) L 07/01/20 04:27 Albumin 2.2 g/dL (3.4-4.8) L 07/01/20 04:27 Lipase 50 U/L (8-78) 06/20/20 08:26 Urine Ketones Trace mg/dL (Negative) A 06/20/20 09:16 Urine Blood Moderate (Negative) A 06/20/20 09:16 Urine Nitrite Negative (Negative) 06/20/20 09:16 Ur Leukocyte Esterase Moderate (Negative) H 06/20/20 09:16 Urine RBC 4-6 HPF (0-3) A 06/20/20 09:16 Urine WBC Greater Than 50 HPF (0-3) A 06/20/20 09:16 Ur Squamous Epith Cells 0-3 HPF (0-3) 06/20/20 09:16 Urine Bacteria 4+ HPF (None Seen) A 06/20/20 09:16 Sodium 140 mmol/L (136-145) 07/01/20 04:27 Potassium 3.4 mmol/L (3.5-5.1) L 07/01/20 04:27 Chloride 109 mmol/L (98-107) H 07/01/20 04:27 Carbon Dioxide 22 mmol/L (23-31) L 07/01/20 04:27 Anion Gap 12 mmol/L (-20) 07/01/20 04:27 BUN 43 mg/dL (9.8-20.1) H 07/01/20 04:27 Creatinine 0.71 mg/dL (0.6-1.1) 07/01/20 04:27 Glucose 487 mg/dL (83-110) H 07/01/20 04:27 Calcium 7.8 mg/dL (7.8-10.44) 07/01/20 04:27 Phosphorus 2.8 mg/dL (2.3-4.7) 07/01/20 04:27 Magnesium 1.7 mg/dL (1.6-2.6) 07/01/20 04:27 Albumin 2.2 g/dL (3.4-4.8) L 07/01/20 04:27 Nephrology AP PN - Plan ASSESSMENT Hypernatremia: Due to free water defict. Resolved with hypotonic solution therapy with sterile water + sodium bicarbonate Metabolic acidosis. Improving Hypokalemia Persistent Hypophosphatemia: Improved. DM with hyperglycemia. Covid pneumonia on treatment. Acute respiratory failure with hypoxia. Acute encephalopathy Plan DC Sterile water with 50 meq of sodium bicarbonate at 50 cc/hr. Add 1 liter of sterile water to the TPN Give another dose of potassium phosphate to replete serum potassium. Strongly recommend NG tube for entereal nutrition. This will allow for adequate free water provision if continuation of aggressive therapy is desired. Continue other treatments. Recheck BMP later today and adjust fluid therapy as appropriate. Glycemic management as per Primary attending.
[2020-07-01] MEDS: Ferrous Sulfate 325 MG TAB PO SCH (09:22)
[2020-07-01] MEDS: Cholecalciferol 1,000 UNITS (25 MCG) TAB PO SCH (09:22)
[2020-07-01] MEDS: Amlodipine 10 MG TAB PO SCH (09:22)
[2020-07-01] MEDS: Ascorbic Acid 500 mg Chewable Tablet PO SCH (09:22)
[2020-07-01] MEDS: Zinc Sulfate 220 MG CAP PO SCH (09:23)
[2020-07-01] MEDS: Enoxaparin Sodium 40 MG/0.4 ML SYRINGE SC SCH ×2 (09:25→21:36)
[2020-07-01] MEDS: Dexamethasone 4 mg/ml Vial SLOW IVP SCH (09:32)
[2020-07-01] MEDS: Insulin Glargine 15 UNITS in Pre-Filled Syringe 1 EACH SC SCH (10:55)
--- NOTE | 2020-07-01 11:37 | PDOC.HOSPP ---
- Subjective Encounter Date: 07/01/20 Encounter Time: 08:45 Subjective: Patient seen and examined bedside today, patient continues to refuse oral medication, patient is on high flow oxygen, - Objective Vital Signs & Weight: Vital Signs (12 hours) Temp Pulse Resp BP BP Pulse Ox 07/01/20 09:22 60 07/01/20 08:46 97.7 F 65 23 H 153/65 H 100 07/01/20 04:00 97.9 F 60 18 134/78 98 06/30/20 23:54 96.8 F L 103 H 19 105/59 L 97 Weight Admit Weight 146 lb 4.8 oz Weight 146 lb 6.4 oz I&O: 06/30/20 07/01/20 07/02/20 06:59 06:59 06:59 Intake Total 3711 5015 Output Total 1600 1750 Balance 2111 3265 Result Diagrams: 06/25/20 05:15 07/01/20 04:27 Additional Labs: Accuchecks 06/30/20 06/30/20 23:58 12:33 POC Glucose 439 H 376 H Hospitalist ROS - Medication Medications: Active Medications Generic Name Dose Route Start Last Admin Trade Name Freq PRN Reason Stop Dose Admin Amlodipine Besylate 10 mg 06/22/20 09:00 07/01/20 09:22 Amlodipine 10 Mg Tab PO Not Given DAILY [facility] Ascorbic Acid 1,000 mg 06/22/20 09:00 07/01/20 09:22 Ascorbic Acid 500 Mg Chewable Tablet PO Not Given DAILY [facility] Cholecalciferol 2,000 units 06/22/20 09:00 07/01/20 09:22 Cholecalciferol 1,000 Units (25 Mcg) Tab PO Not Given DAILY [facility] Dexamethasone 6 mg 07/01/20 09:00 07/01/20 09:32 Dexamethasone 4 Mg/Ml Vial SLOW IVP 6 mg DAILY [facility] Administration Donepezil HCl 5 mg 06/21/20 21:00 06/30/20 20:36 Donepezil Hcl 5 Mg Tab PO Not Given HS MARY KATE Enoxaparin Sodium 40 mg 06/20/20 21:00 07/01/20 09:25 Enoxaparin Sodium 40 Mg/0.4 Ml Syringe SC 40 mg 09,2099 MARY KATE Administration Famotidine 20 mg 07/01/20 09:00 07/01/20 09:32 Famotidine/Pf 20 Mg/2ml Vial SLOW IVP 20 mg BID MARY KATE Administration Ferrous Sulfate 325 mg 06/22/20 08:00 07/01/20 09:22 Ferrous Sulfate 325 Mg Tab PO Not Given QAM-WM MARY KATE Meropenem 1 gm/ Device 50 mls @ 100 mls/hr 06/24/20 01:00 07/01/20 09:25 IVPB 50 mls 0100,0900,1700 MARY KATE Administration Insulin Glargine 15 units/ 0.15 mls @ 0 mls/hr 07/01/20 09:00 07/01/20 10:55 Miscellaneous Medication SC 0.15 mls QAM MARY KATE Administration Insulin Human Lispro 0 units 06/25/20 20:17 06/29/20 00:39 Humalog 300 Units/3 Ml Vial SC 5 unit .BEDTIME SLIDING SC PRN Administration Bedtime Correctional Scale Labetalol HCl 10 mg 06/24/20 08:31 06/27/20 05:53 Labetalol Hcl 100 Mg/20 Ml Vial SLOW IVP 10 mg Q4H PRN Administration SBP Greater Than 170 Sodium Chloride 10 ml 06/20/20 21:00 07/01/20 09:33 Flush - Normal Saline 10 Ml Syringe IVF 10 ml Q12HR MARY KATE Administration Sodium Chloride 10 ml 06/20/20 10:30 07/01/20 00:14 Flush - Normal Saline 10 Ml Syringe IVF 10 ml PRN PRN Administration Saline Flush Zinc Sulfate 220 mg 06/22/20 09:00 07/01/20 09:23 Zinc Sulfate 220 Mg Cap PO Not Given DAILY MARY KATE - Exam General Appearance: ill appearing Eye: PERRL, anicteric sclera ENT: normocephalic atraumatic, no oropharyngeal lesions, dry oral mucosa Neck: symmetric, no JVD, no thyromegaly Heart: RRR, no murmur, no gallops, no rubs Respiratory: no wheezes, no rales, no ronchi Gastrointestinal: soft, non-tender, non-distended, normal bowel sounds Extremities: no cyanosis, no clubbing Skin: normal turgor, no lesions Neurological: no focal deficits Musculoskeletal: normal tone, normal strength Psychiatric: normal affect, normal behavior Hosp A/P (1) Acute respiratory failure with hypoxia Code(s): J96.01 - ACUTE RESPIRATORY FAILURE WITH HYPOXIA Status: Acute (2) Pneumonia due to COVID-19 virus Code(s): U07.1 - COVID-19; J12.89 - OTHER VIRAL PNEUMONIA Status: Acute (3) Sepsis due to COVID-19 Code(s): U07.1 - COVID-19; A41.89 - OTHER SPECIFIED SEPSIS Status: Acute (4) UTI (urinary tract infection) Status: Acute (5) DM type 2 (diabetes mellitus, type 2) Status: Chronic Qualifiers: Diabetes mellitus residential insulin use: without residential use Diabetes mellitus complication status: without complication Qualified Code(s): E11.9 - Type 2 diabetes mellitus without complications (6) Dyslipidemia Code(s): E78.5 - HYPERLIPIDEMIA, UNSPECIFIED Status: Chronic (7) Hypertension Code(s): I10 - ESSENTIAL (PRIMARY) HYPERTENSION Status: Chronic (8) Erosive esophagitis Code(s): K22.10 - ULCER OF ESOPHAGUS WITHOUT BLEEDING Status: Chronic (9) Hypokalemia Code(s): E87.6 - HYPOKALEMIA Status: Acute - Plan old records reviewed/req, plan discussed w/ family, continue antibiotics, PT/OT Currently patient is on TPN Patient is on high flow oxygen Patient is significantly physically deconditioned I discussed with the patient's family member, the do not have any realistic go al, they want her to walk, it is not possible with this high flow oxygen, they want her to eat and they are suspecting that because of esophagitis she is not eating so I have started Protonix twice daily, she has uncontrolled diabetes and it is possible that she may have Ainsley so I started nystatin swish and swallow, patient is refusing medication so she is not taking appropriate care as well, her prognosis is extremely poor I discussed with the family member that with this type of condition that cannot be unexpected Because of steroid her blood sugar is out of control, today I have added Lantus 15 units subcu twice daily and aggressive sliding scale insulin Replace electrolytes
[2020-07-01] MEDS: Nystatin 100,000 Units/mL UDCUP SSW SCH ×2 (12:01→18:08)
[2020-07-01] MEDS ORDERED: MULTIVITAMINS IV SCH (14:00)
[2020-07-01] MEDS ORDERED: [UNRECOGNIZED DRUG - OTHER] IV SCH (14:00)
[2020-07-01] MEDS ORDERED: STERILE WATER IV SCH (14:00)
--- NOTE | 2020-07-01 15:59 | EKG ---
Test Reason : Blood Pressure : / mmHG Vent. Rate : 131 BPM Atrial Rate : 131 BPM P-R Int : 126 ms QRS Dur : 080 ms QT Int : 312 ms P-R-T Axes : 046 -15 043 degrees QTc Int : 460 ms Sinus tachycardia with occasional Premature ventricular complexes Inferior infarct , age undetermined Anterolateral infarct , age undetermined Abnormal ECG Confirmed by GERALD KO, BIGG ([id number]), international editorial producer YUN JOYNER ([id number]) on 07/01/2020 3:59:00 PM Referred By: Confirmed By:BIGG DUARTE MD
[2020-07-01] MEDS: Nystatin 500,000 UNITS/5 ML UDCUP SSW SCH ×2 (18:09→21:35)
[2020-07-01] MEDS ORDERED: Insulin Glargine 15 UNITS in Pre-Filled Syringe 1 EACH SC SCH (21:00)
[2020-07-01] MEDS: Donepezil HCl 5 MG TAB PO SCH (21:35)
[2020-07-01] MEDS: Pantoprazole 40 MG VIAL IVP SCH (21:36)
[2020-07-02] MEDS: MEROPENEM 1 GM/50 ML 1 GM in Premix Bag 1 BAG IVPB SCH ×3 (00:39→16:17)
[2020-07-02] MEDS: Dextrose 50% Abboject 50 ML SYRINGE SLOW IVP PRN ×2 (00:40→06:39)
[2020-07-02 04:47] LABS: #Eosinphils 0.1 thou/uL (0.0-0.7); #Lymphocytes 1.8 thou/uL (1.20-3.40); #Monocytes 0.4 thou/uL (0.11-0.59); #Neutrophils 14.4 thou/uL (1.40-6.50); %Basophils 0.1 % (0.0-1.0); %Eosinophils 0.5 % (0.0-10.0); %Lymphocytes 10.5 % (21.0-51.0); %Monocytes 2.6 % (0.0-10.0); %Neutrophils 86.3 % (42.0-75.0); Hemoglobin 13.8 g/dL (12.0-16.0); Mean Corpuscular HGB CONC 33.3 g/dL (32.0-36.0); Mean Corpuscular Hemoglobin 33.9 pg (27.0-31.0); Mean Platelet Volume 11.8 fL (7.4-10.4); Platelet Count 146 thou/uL (130-400); RBC Distribution Width 13.6 % (11.5-14.5); Red Blood Cell (RBC) Count 4.08 mill/uL (4.20-5.40); White Blood Cell (WBC) Count 16.7 thou/uL (4.8-10.8)
[2020-07-02 04:54] LABS: PTT 25.6 sec (22.9-36.1); Prothrombin Time 13.3 sec (12.0-14.7)
[2020-07-02] MEDS: Insulin Glargine 15 UNITS in Pre-Filled Syringe 1 EACH SC SCH (07:23)
[2020-07-02 08:10] LABS: ALT (SGPT) 72 U/L (8-55); AST (SGOT) 46 U/L (5-34); Albumin 2.5 g/dL (3.4-4.8); Alkaline Phosphatase 82 U/L (40-110); Anion Gap 10 mmol/L (10-20); BUN (Urea Nitrogen) 32 mg/dL (9.8-20.1); Bilirubin, Total 0.7 mg/dL (0.2-1.2); Calc. Creatinine Clearance 56 mL/min (70-130); Calcium 8.8 mg/dL (7.8-10.44); Carbon Dioxide 30 mmol/L (23-31); Cardiac Risk 11.1 (Less than 4.5); Chloride 114 mmol/L (98-107); Cholesterol 199 mg/dl (< 200 Desired); Estimated GFR-MDRD 78; Globulin 2.8 g/dL (2.4-3.5); Glucose 188 mg/dL (83-110); HDL Cholesterol 18 mg/dL (>60 Neg Risk); LDL Cholesterol, Calculated 125 mg/dL; Magnesium 2.1 mg/dL (1.6-2.6); Phosphorus 2.5 mg/dL (2.3-4.7); Potassium 3.6 mmol/L (3.5-5.1); Protein, Total 5.3 g/dL (6.0-8.3); Sodium 150 mmol/L (136-145); Triglycerides 281 mg/dL (Less than 150)
[2020-07-02] MEDS ORDERED: Dextrose 5% in Water 1,000 ML IV SCH (08:30)
[2020-07-02] MEDS: Pantoprazole 40 MG VIAL IVP SCH ×2 (09:45→20:29)
[2020-07-02] MEDS: Amlodipine 10 MG TAB PO SCH (09:46)
[2020-07-02] MEDS: Zinc Sulfate 220 MG CAP PO SCH (09:46)
[2020-07-02] MEDS: Enoxaparin Sodium 40 MG/0.4 ML SYRINGE SC SCH ×2 (09:46→20:29)
[2020-07-02] MEDS: Ferrous Sulfate 325 MG TAB PO SCH (09:46)
[2020-07-02] MEDS: Dexamethasone 4 mg/ml Vial SLOW IVP SCH (09:46)
[2020-07-02] MEDS: Nystatin 500,000 UNITS/5 ML UDCUP SSW SCH ×4 (09:46→20:29)
[2020-07-02] MEDS: Cholecalciferol 1,000 UNITS (25 MCG) TAB PO SCH (09:46)
[2020-07-02] MEDS: Ascorbic Acid 500 mg Chewable Tablet PO SCH (09:46)
--- NOTE | 2020-07-02 10:27 | PDOC.HOSPP ---
- Subjective Encounter Date: 07/02/20 Encounter Time: 08:45 Subjective: Patient evaluated by speech therapy yesterday and patient was started on modified diet, her p.o. intake is limited and does sometimes patient refuses to take oral intake as well, she had hypoglycemia yesterday, - Objective Vital Signs & Weight: Vital Signs (12 hours) Temp Pulse Resp BP BP Pulse Ox 07/02/20 07:54 97.8 F 58 L 18 169/70 H 96 07/02/20 03:21 96.8 F L 74 20 124/58 L 94 L 07/02/20 00:10 97.5 F L 80 18 126/63 97 Weight Admit Weight 146 lb 4.8 oz Weight 141 lb 9.6 oz I&O: 07/01/20 07/02/20 07/03/20 06:59 06:59 06:59 Intake Total 5015 1529 Output Total 1750 1700 Balance 3265 -171 Result Diagrams: 07/02/20 04:27 07/02/20 07:33 Additional Labs: Accuchecks 07/02/20 07/02/20 07/01/20 07:39 00:00 18:36 POC Glucose 126 H 78 224 H 07/01/20 12:31 POC Glucose 322 H EKG Reviewed by me: Yes Hospitalist ROS - Review of Systems Constitutional: reports: weakness, malaise. denies: fever, chills, sweats, o ther Respiratory: reports: shortness of breath, SOB with excertion. denies: cough, dry, hemoptysis, pleuritic pain, sputum, wheezing, other Cardiovascular: denies: chest pain, palpitations, orthopnea, paroxysmal noc. dyspnea, edema, light headedness, other Gastrointestinal: denies: nausea, vomiting, abdominal pain, diarrhea, constipation, melena, hematochezia, other Genitourinary: denies: dysuria, frequency, incontinence, hematuria, retention, other Musculoskeletal: denies: neck pain, shoulder pain, arm pain, back pain, hand pain, leg pain, foot pain, other - Medication Medications: Active Medications Generic Name Dose Route Start Last Admin Trade Name Freq PRN Reason Stop Dose Admin Amlodipine Besylate 10 mg 06/22/20 09:00 07/01/20 09:22 Amlodipine 10 Mg Tab PO Not Given DAILY MARY KATE Ascorbic Acid 1,000 mg 10/29/20 09:00 07/01/20 09:22 Ascorbic Acid 500 Mg Chewable Tablet PO Not Given DAILY [facility] Cholecalciferol 2,000 units 06/22/20 09:00 07/01/20 09:22 Cholecalciferol 1,000 Units (25 Mcg) Tab PO Not Given DAILY [facility] Dexamethasone 6 mg 07/01/20 09:00 07/02/20 09:46 Dexamethasone 4 Mg/Ml Vial SLOW IVP 6 mg DAILY MARY KATE Administration Dextrose/Water 25 gm 06/20/20 15:36 07/02/20 06:39 Dextrose 50% Abboject 50 Ml Syringe SLOW IVP 25 gm PRN PRN Administration Hypoglycemia Donepezil HCl 5 mg 06/21/20 21:00 07/01/20 21:35 Donepezil Hcl 5 Mg Tab PO 5 mg HS MARY KATE Administration Enoxaparin Sodium 40 mg 06/20/20 21:00 07/02/20 09:46 Enoxaparin Sodium 40 Mg/0.4 Ml Syringe SC 40 mg 0900,2100 MARY KATE Administration Ferrous Sulfate 325 mg 06/22/20 08:00 07/01/20 09:22 Ferrous Sulfate 325 Mg Tab PO Not Given QAM-WM [facility] Meropenem 1 gm/ Device 50 mls @ 100 mls/hr 06/24/20 01:00 07/02/20 09:46 IVPB 50 mls 0100,0900,1700 MARY KATE Administration Insulin Human Lispro 0 units 06/25/20 20:17 06/29/20 00:39 Humalog 300 Units/3 Ml Vial SC 5 unit .BEDTIME SLIDING SC PRN Administration Bedtime Correctional Scale Insulin Human Lispro 0 units 07/01/20 07:59 07/01/20 18:40 Humalog 300 Units/3 Ml Vial SC 6 unit .AGGRESSIVE SLIDING PRN Administration Aggressive Correctional Scale Labetalol HCl 10 mg 06/24/20 08:31 06/27/20 05:53 Labetalol Hcl 100 Mg/20 Ml Vial SLOW IVP 10 mg Q4H PRN Administration SBP Greater Than 170 Nystatin 500,000 units 07/01/20 17:00 07/01/20 21:35 Nystatin 500,000 Units/5 Ml Udcup SSW 500,000 units QID MARY KATE Administration Pantoprazole Sodium 40 mg 07/01/20 21:00 07/02/20 09:45 Pantoprazole 40 Mg Vial IVP 40 mg Q12HR MARY KATE Administration Sodium Chloride 10 ml 06/20/20 21:00 07/02/20 09:46 Flush - Normal Saline 10 Ml Syringe IVF 10 ml Q12HR MARY KATE Administration Sodium Chloride 10 ml 06/20/20 10:30 07/02/20 06:39 Flush - Normal Saline 10 Ml Syringe IVF 10 ml PRN PRN Administration Saline Flush Zinc Sulfate 220 mg 06/22/20 09:00 07/01/20 09:23 Zinc Sulfate 220 Mg Cap PO Not Given DAILY MARY KATE - Exam General Appearance: NAD, awake alert Eye: PERRL, anicteric sclera ENT: normocephalic atraumatic, no oropharyngeal lesions Neck: symmetric, no JVD Heart: RRR, no murmur, no gallops, no rubs Respiratory: no wheezes, no rales, no ronchi Gastrointestinal: soft, non-tender, non-distended, normal bowel sounds Extremities: no clubbing, no edema Skin: normal turgor, no lesions Neurological: no new deficit Musculoskeletal: normal tone, normal strength Psychiatric: normal affect, normal behavior Hosp A/P (1) Acute respiratory failure with hypoxia Code(s): J96.01 - ACUTE RESPIRATORY FAILURE WITH HYPOXIA Status: Acute (2) Pneumonia due to COVID-19 virus Code(s): U07.1 - COVID-19; J12.89 - OTHER VIRAL PNEUMONIA Status: Acute (3) Sepsis due to COVID-19 Code(s): U07.1 - COVID-19; A41.89 - OTHER SPECIFIED SEPSIS Status: Acute (4) UTI (urinary tract infection) Status: Acute (5) DM type 2 (diabetes mellitus, type 2) Status: Chronic Qualifiers: Diabetes mellitus predatory animal exterminator insulin use: without custodial use Diabetes mellitus complication status: without complication Qualified Code(s): E11.9 - Type 2 diabetes mellitus without complications (6) Dyslipidemia Code(s): E78.5 - HYPERLIPIDEMIA, UNSPECIFIED Status: Chronic (7) Hypertension Code(s): I10 - ESSENTIAL (PRIMARY) HYPERTENSION Status: Chronic (8) Erosive esophagitis Code(s): K22.10 - ULCER OF ESOPHAGUS WITHOUT BLEEDING Status: Chronic (9) Hypokalemia Code(s): E87.6 - HYPOKALEMIA Status: Acute (10) Hypernatremia Code(s): E87.0 - HYPEROSMOLALITY AND HYPERNATREMIA Status: Acute - Plan old records reviewed/req, continue antibiotics, psychologist social, respiratory therapy TPN has been discontinued, diet as tolerated, Because of her erratic oral intake, will reduce Lantus insulin 5 units subcu twice daily to prevent hypoglycemia Patient has hypernatremia so D5 with water 75 mill per hour Continue physical therapy as tolerated Wean off oxygen as tolerated If remains stable then will consider discharge in next 24 to 48 hours. Tomorrow we will repeat labs
[2020-07-02] MEDS: Dextrose 5% in Water 1,000 ML IV SCH ×2 (10:39→23:48)
--- NOTE | 2020-07-02 12:30 | PDOC.NEPPN ---
- Subjective Encounter Date: 07/02/20 Subjective: Seen in follow up for electrolyte derangement. Oral intake though improving is still suboptimal. Still on TPN. Had hypoglycemia yesterday. - Objective Vital Signs & Weight: Vital Signs (12 hours) Temp Pulse Resp BP BP Pulse Ox 07/02/20 09:46 58 L 07/02/20 07:54 97.8 F 58 L 18 169/70 H 96 07/02/20 03:21 96.8 F L 74 20 124/58 L 94 L Weight Admit Weight 146 lb 4.8 oz Weight 141 lb 9.6 oz I&O: 07/01/20 07/02/20 07/03/20 06:59 06:59 06:59 Intake Total 5015 1529 Output Total 1750 1700 Balance 3265 -171 Result Diagrams: 07/02/20 04:27 07/02/20 07:33 Additional Labs: Accuchecks 07/02/20 07/02/20 07/01/20 07:39 00:00 18:36 POC Glucose 126 H 78 224 H 07/01/20 12:31 POC Glucose 322 H Nephrology ROS - Medication Medications: Active Medications Generic Name Dose Route Start Last Admin Trade Name Freq PRN Reason Stop Dose Admin Amlodipine Besylate 10 mg 06/22/20 09:00 07/02/20 09:46 Amlodipine 10 Mg Tab PO 10 mg DAILY MARY KATE Administration Ascorbic Acid 1,000 mg 06/22/20 09:00 07/02/20 09:46 Ascorbic Acid 500 Mg Chewable Tablet PO 1,000 mg DAILY MARY KATE Administration Cholecalciferol 2,000 units 06/22/20 09:00 07/02/20 09:46 Cholecalciferol 1,000 Units (25 Mcg) Tab PO 2,000 units DAILY MARY KATE Administration Dexamethasone 6 mg 07/01/20 09:00 07/02/20 09:46 Dexamethasone 4 Mg/Ml Vial SLOW IVP 6 mg DAILY MARY KATE Administration Dextrose/Water 25 gm 06/20/20 15:36 07/02/20 06:39 Dextrose 50% Abboject 50 Ml Syringe SLOW IVP 25 gm PRN PRN Administration Hypoglycemia Donepezil HCl 5 mg 06/21/20 21:00 07/01/20 21:35 Donepezil Hcl 5 Mg Tab PO 5 mg HS MARY KATE Administration Enoxaparin Sodium 40 mg 06/20/20 21:00 07/02/20 09:46 Enoxaparin Sodium 40 Mg/0.4 Ml Syringe SC 40 mg 0900,2100 MARY KATE Administration Ferrous Sulfate 325 mg 06/22/20 08:00 07/02/20 09:46 Ferrous Sulfate 325 Mg Tab PO 325 mg QAM-WM MARY KATE Administration Meropenem 1 gm/ Device 50 mls @ 100 mls/hr 06/24/20 01:00 07/02/20 09:46 IVPB 50 mls 0100,0900,1700 MARY KATE Administration Dextrose/Water 1,000 mls @ 75 mls/hr 07/02/20 10:25 07/02/20 10:39 D5w IV 1,000 mls .[id number] MARY KATE Administration Insulin Human Lispro 0 units 06/25/20 20:17 06/29/20 00:39 Humalog 300 Units/3 Ml Vial SC 5 unit .BEDTIME SLIDING SC PRN Administration Bedtime Correctional Scale Insulin Human Lispro 0 units 07/01/20 07:59 07/01/20 18:40 Humalog 300 Units/3 Ml Vial SC 6 unit .AGGRESSIVE SLIDING PRN Administration Aggressive Correctional Scale Labetalol HCl 10 mg 06/24/20 08:31 06/27/20 05:53 Labetalol Hcl 100 Mg/20 Ml Vial SLOW IVP 10 mg Q4H PRN Administration SBP Greater Than 170 Nystatin 500,000 units 07/01/20 17:00 07/02/20 09:46 Nystatin 500,000 Units/5 Ml Udcup SSW 500,000 units QID MARY KATE Administration Pantoprazole Sodium 40 mg 07/01/20 21:00 07/02/20 09:45 Pantoprazole 40 Mg Vial IVP 40 mg Q12HR MARY KATE Administration Sodium Chloride 10 ml 06/20/20 21:00 07/02/20 09:46 Flush - Normal Saline 10 Ml Syringe IVF 10 ml Q12HR MARY KATE Administration Sodium Chloride 10 ml 06/20/20 10:30 07/02/20 06:39 Flush - Normal Saline 10 Ml Syringe IVF 10 ml PRN PRN Administration Saline Flush Zinc Sulfate 220 mg 06/22/20 09:00 07/02/20 09:46 Zinc Sulfate 220 Mg Cap PO 220 mg DAILY MARY KATE Administration - Exam General - other findings: awake. fatigued Eye: anicteric sclera ENT: normocephalic atraumatic Neck: symmetric, no JVD Respiratory - other findings: fair air entry with transmitted sound Cardiovascular: RRR Gastrointestinal: soft, non-tender, non-distended, normal bowel sounds Extremities: no edema Neurological: CN's grossly intact, no focal deficits Neurological - other findings: more awake Nephrology Results - Labs Result Diagrams: 07/02/20 04:27 07/02/20 07:33 Lab results: WBC 16.7 thou/uL (4.8-10.8) H 07/02/20 04:27 Hgb 13.8 g/dL (12.0-16.0) 07/02/20 04:27 Hct 41.5 % (36.0-47.0) 07/02/20 04:27 MCV 102.0 fL (78.0-98.0) H 07/02/20 04:27 Plt Count 146 thou/uL (130-400) 07/02/20 04:27 Neutrophils % 86.3 % (42.0-75.0) H 07/02/20 04:27 Band Neuts % (Manual) 20 % (5-11) H 06/23/20 04:27 ABG pH 7.43 (7.35-7.45) 06/22/20 16:45 ABG pCO2 29.0 mmHg (35.0-45.0) L 06/22/20 16:45 ABG pO2 51.3 mmHg (> 60.0) L* 06/22/20 16:45 Sodium 150 mmol/L (136-145) H 07/02/20 07:33 Potassium 3.6 mmol/L (3.5-5.1) 07/02/20 07:33 Chloride 114 mmol/L (98-107) H 07/02/20 07:33 Carbon Dioxide 30 mmol/L (23-31) 07/02/20 07:33 BUN 32 mg/dL (9.8-20.1) H 07/02/20 07:33 Creatinine 0.71 mg/dL (0.6-1.1) 07/02/20 07:33 Glucose 188 mg/dL (83-110) H 07/02/20 07:33 Lactic Acid 1.8 mmol/L (0.5-2.2) 06/20/20 11:35 Calcium 8.8 mg/dL (7.8-10.44) 07/02/20 07:33 Total Bilirubin 0.7 mg/dL (0.2-1.2) 07/02/20 07:33 AST 46 U/L (5-34) H 07/02/20 07:33 ALT 72 U/L (8-55) H 07/02/20 07:33 Alkaline Phosphatase 82 U/L (40-110) 07/02/20 07:33 Creatine Kinase 32 U/L (29-168) 06/20/20 08:26 CK-MB (CK-2) 0.5 ng/mL (0-6.6) 06/20/20 08:26 Troponin I 0.090 ng/mL (< 0.028) H 06/20/20 14:50 C-Reactive Protein 1.33 mg/dL (= or < 0.5) H 06/29/20 07:00 B-Natriuretic Peptide 32.5 pg/mL (0-100) 06/20/20 08:26 Serum Total Protein 5.3 g/dL (6.0-8.3) L 07/02/20 07:33 Albumin 2.5 g/dL (3.4-4.8) L 07/02/20 07:33 Lipase 50 U/L (8-78) 06/20/20 08:26 Urine Ketones Trace mg/dL (Negative) A 06/20/20 09:16 Urine Blood Moderate (Negative) A 06/20/20 09:16 Urine Nitrite Negative (Negative) 06/20/20 09:16 Ur Leukocyte Esterase Moderate (Negative) H 06/20/20 09:16 Urine RBC 4-6 HPF (0-3) A 06/20/20 09:16 Urine WBC Greater Than 50 HPF (0-3) A 06/20/20 09:16 Ur Squamous Epith Cells 0-3 HPF (0-3) 06/20/20 09:16 Urine Bacteria 4+ HPF (None Seen) A 06/20/20 09:16 Sodium 150 mmol/L (136-145) H 07/02/20 07:33 Potassium 3.6 mmol/L (3.5-5.1) 07/02/20 07:33 Chloride 114 mmol/L (98-107) H 07/02/20 07:33 Carbon Dioxide 30 mmol/L (23-31) 07/02/20 07:33 Anion Gap 10 mmol/L (10-20) 07/02/20 07:33 BUN 32 mg/dL (9.8-20.1) H 07/02/20 07:33 Creatinine 0.71 mg/dL (0.6-1.1) 07/02/20 07:33 Glucose 188 mg/dL (83-110) H 07/02/20 07:33 Calcium 8.8 mg/dL (7.8-10.44) 07/02/20 07:33 Phosphorus 2.5 mg/dL (2.3-4.7) 07/02/20 07:33 Magnesium 2.1 mg/dL (1.6-2.6) 07/02/20 07:33 Albumin 2.5 g/dL (3.4-4.8) L 07/02/20 07:33 Nephrology AP PN - Plan ASSESSMENT Hypernatremia: Due to free water defict. Recurrent. Resolved with hypotonic solution therapy. Npw back to 150 Metabolic acidosis.Resolved Hypokalemia Hypophosphatemia: Resolved. DM with hyperglycemia. Had hypoglycemic episode yesterday Covid pneumonia on treatment. Acute respiratory failure with hypoxia. Acute encephalopathy Plan [place] free water intake advised. Start d5w at 125 cc/hr. Continue other treatments. Recheck BMP later @ 1400 and adjust fluid therapy as appropriate. Glycemic management as per Primary attending. If oral intake is still suboptimal, consider NG tube placement to facilitate fr ee water intake. Nephrology will sign off.
[2020-07-02] MEDS: HumaLOG 300 UNITS/3 ML VIAL SC PRN ×2 (16:30→20:53)
[2020-07-02 17:36] LABS: Albumin 2.3 g/dL (3.4-4.8); Anion Gap 15 mmol/L (10-20); BUN (Urea Nitrogen) 30 mg/dL (9.8-20.1); BUN/Creatinine Ratio 40.54; Calc. Creatinine Clearance 53 mL/min (70-130); Calcium 8.2 mg/dL (7.8-10.44); Carbon Dioxide 22 mmol/L (23-31); Chloride 112 mmol/L (98-107); Estimated GFR-MDRD 74; Glucose 330 mg/dL (83-110); Phosphorus 2.5 mg/dL (2.3-4.7); Potassium 4.6 mmol/L (3.5-5.1); Sodium 144 mmol/L (136-145)
[2020-07-02] MEDS: Donepezil HCl 5 MG TAB PO SCH (20:29)
[2020-07-02] MEDS: Insulin Glargine 5 UNITS in Pre-Filled Syringe 1 EACH SC SCH (20:29)
[2020-07-03] MEDS: MEROPENEM 1 GM/50 ML 1 GM in Premix Bag 1 BAG IVPB SCH (01:46)
[2020-07-03] MEDS: HumaLOG 300 UNITS/3 ML VIAL SC PRN (05:29)
[2020-07-03] MEDS: Cholecalciferol 1,000 UNITS (25 MCG) TAB PO SCH ×2 (09:05→13:39)
[2020-07-03] MEDS: Ascorbic Acid 500 mg Chewable Tablet PO SCH ×2 (09:06→13:40)
[2020-07-03] MEDS: Nystatin 500,000 UNITS/5 ML UDCUP SSW SCH ×5 (09:06→22:04)
[2020-07-03] MEDS: Ferrous Sulfate 325 MG TAB PO SCH ×2 (09:06→13:38)
[2020-07-03] MEDS: Zinc Sulfate 220 MG CAP PO SCH ×2 (09:06→13:41)
[2020-07-03] MEDS: Enoxaparin Sodium 40 MG/0.4 ML SYRINGE SC SCH ×2 (09:06→22:03)
[2020-07-03] MEDS: Amlodipine 10 MG TAB PO SCH ×2 (09:06→13:38)
[2020-07-03] MEDS: Pantoprazole 40 MG VIAL IVP SCH ×2 (09:06→22:04)
[2020-07-03] MEDS: Dexamethasone 4 MG TAB PO SCH ×2 (09:10→13:37)
[2020-07-03] MEDS: Insulin Glargine 5 UNITS in Pre-Filled Syringe 1 EACH SC SCH ×2 (09:11→22:42)
--- NOTE | 2020-07-03 10:37 | PDOC.HOSPP ---
- Subjective Encounter Date: 07/03/20 Encounter Time: 08:25 Subjective: Patient seen and examined bedside today, no overnight event, patient is on nasal cannula oxygen. - Objective Vital Signs & Weight: Vital Signs (12 hours) Temp Pulse Resp BP Pulse Ox 07/03/20 09:06 97.3 F L 60 18 136/63 95 07/03/20 03:57 98.6 F 83 20 133/78 95 07/03/20 00:00 98.5 F 61 20 123/64 96 Weight Admit Weight 146 lb 4.8 oz Weight 140 lb 6.4 oz I&O: 07/02/20 07/03/20 07/04/20 06:59 06:59 06:59 Intake Total 1529 2876 Output Total 1700 1150 Balance -171 1726 Result Diagrams: 07/02/20 04:27 07/02/20 17:12 Additional Labs: Accuchecks 07/03/20 07/02/20 07/02/20 05:28 20:36 16:27 POC Glucose 223 H 308 H 325 H 07/02/20 06/30/20 13:39 18:13 POC Glucose 175 H Greater than 500 H EKG Reviewed by me: Yes Hospitalist ROS - Review of Systems ROS unobtainable: due to mental status - Medication Medications: Active Medications Generic Name Dose Route Start Last Admin Trade Name Freq PRN Reason Stop Dose Admin Amlodipine Besylate 10 mg 06/22/20 09:00 07/03/20 09:06 Amlodipine 10 Mg Tab PO 10 mg DAILY MARY KATE Administration Ascorbic Acid 1,000 mg 06/22/20 09:00 07/03/20 09:06 Ascorbic Acid 500 Mg Chewable Tablet PO 1,000 mg DAILY MARY KATE Administration Cholecalciferol 2,000 units 06/22/20 09:00 07/03/20 09:05 Cholecalciferol 1,000 Units (25 Mcg) Tab PO 2,000 units DAILY MARY KATE Administration Dexamethasone 6 mg 07/03/20 08:00 07/03/20 09:10 Dexamethasone 4 Mg Tab PO 6 mg QAM-WM MARY KATE Administration Dextrose/Water 25 gm 06/20/20 15:36 07/02/20 06:39 Dextrose 50% Abboject 50 Ml Syringe SLOW IVP 25 gm PRN PRN Administration Hypoglycemia Donepezil HCl 5 mg 06/21/20 21:00 07/02/20 20:29 Donepezil Hcl 5 Mg Tab PO 5 mg HS MARY KATE Administration Enoxaparin Sodium 40 mg 06/20/20 21:00 07/03/20 09:06 Enoxaparin Sodium 40 Mg/0.4 Ml Syringe SC 40 mg 0900,2100 MARY KATE Administration Ferrous Sulfate 325 mg 06/22/20 08:00 07/03/20 09:06 Ferrous Sulfate 325 Mg Tab PO 325 mg QAM-WM MARY KATE Administration Insulin Glargine 5 units/ 0.05 mls @ 0 mls/hr 07/02/20 21:00 07/02/20 20:29 Miscellaneous Medication SC 0.05 mls HS MARY KATE Administration Insulin Glargine 5 units/ 0.05 mls @ 0 mls/hr 07/03/20 09:00 07/03/20 09:11 Miscellaneous Medication SC 0.05 mls QAM MARY KATE Administration Insulin Human Lispro 0 units 06/25/20 20:17 07/02/20 20:53 Humalog 300 Units/3 Ml Vial SC 4 unit .BEDTIME SLIDING SC PRN Administration Bedtime Correctional Scale Insulin Human Lispro 0 units 07/01/20 07:59 07/03/20 05:29 Humalog 300 Units/3 Ml Vial SC 6 unit .AGGRESSIVE SLIDING PRN Administration Aggressive Correctional Scale Labetalol HCl 10 mg 06/24/20 08:31 06/27/20 05:53 Labetalol Hcl 100 Mg/20 Ml Vial SLOW IVP 10 mg Q4H PRN Administration SBP Greater Than 170 Nystatin 500,000 units 07/01/20 17:00 07/03/20 09:06 Nystatin 500,000 Units/5 Ml Udcup SSW 500,000 units QID MARY KATE Administration Pantoprazole Sodium 40 mg 07/01/20 21:00 07/03/20 09:06 Pantoprazole 40 Mg Vial IVP 40 mg Q12HR MARY KATE Administration Sodium Chloride 10 ml 06/20/20 21:00 07/03/20 09:07 Flush - Normal Saline 10 Ml Syringe IVF 10 ml Q12HR MARY KATE Administration Sodium Chloride 10 ml 06/20/20 10:30 07/02/20 06:39 Flush - Normal Saline 10 Ml Syringe IVF 10 ml PRN PRN Administration Saline Flush Zinc Sulfate 220 mg 06/22/20 09:00 07/03/20 09:06 Zinc Sulfate 220 Mg Cap PO 220 mg DAILY MARY KATE Administration - Exam General Appearance: NAD, awake alert Eye: PERRL, anicteric sclera ENT: normocephalic atraumatic, no oropharyngeal lesions Neck: supple, symmetric, no JVD, no thyromegaly Heart: RRR, no murmur, no gallops, no rubs Respiratory: no wheezes, no rales, no ronchi Gastrointestinal: soft, non-tender, non-distended, normal bowel sounds Extremities: no cyanosis, no clubbing Skin: normal turgor, no lesions Neurological: no new deficit Musculoskeletal: normal tone, normal strength Psychiatric: normal affect Hosp A/P (1) Acute respiratory failure with hypoxia Code(s): J96.01 - ACUTE RESPIRATORY FAILURE WITH HYPOXIA Status: Acute (2) Pneumonia due to COVID-19 virus Code(s): U07.1 - COVID-19; J12.89 - OTHER VIRAL PNEUMONIA Status: Acute (3) Sepsis due to COVID-19 Code(s): U07.1 - COVID-19; A41.89 - OTHER SPECIFIED SEPSIS Status: Acute (4) UTI (urinary tract infection) Status: Acute (5) DM type 2 (diabetes mellitus, type 2) Status: Chronic Qualifiers: Diabetes mellitus intermediate insulin use: without rat exterminator use Diabetes mellitus complication status: without complication Qualified Code(s): E11.9 - Type 2 diabetes mellitus without complications (6) Dyslipidemia Code(s): E78.5 - HYPERLIPIDEMIA, UNSPECIFIED Status: Chronic (7) Hypertension Code(s): I10 - ESSENTIAL (PRIMARY) HYPERTENSION Status: Chronic (8) Erosive esophagitis Code(s): K22.10 - ULCER OF ESOPHAGUS WITHOUT BLEEDING Status: Chronic (9) Hypokalemia Code(s): E87.6 - HYPOKALEMIA Status: Acute (10) Hypernatremia Code(s): E87.0 - HYPEROSMOLALITY AND HYPERNATREMIA Status: Acute - Plan old records reviewed/req, PT/OT, social science research assistant, respiratory therapy Plan Ambulate as tolerated, as long as patient is able to eat and ambulate with therapy and does not need any further high flow oxygen and her oxygen saturation remains normal then will consider discharging back to retirement We will discontinue IV fluid Encourage oral intake Patient is at high risk for recurrent admission Change dexamethasone p.o. Discontinue IV antibiotic therapy Current leukocytosis related to steroid While in hospital we will adjust insulin regimen
[2020-07-03] MEDS: Dextrose 50% Abboject 50 ML SYRINGE SLOW IVP PRN (13:03)
[2020-07-03] MEDS: Dextrose 5% in Water 1,000 ML IV SCH (15:20)
[2020-07-03] MEDS: Donepezil HCl 5 MG TAB PO SCH (22:03)
[2020-07-04] MEDS: Dextrose 5% in Water 1,000 ML IV SCH (03:20)
[2020-07-04] MEDS: Insulin Glargine 5 UNITS in Pre-Filled Syringe 1 EACH SC SCH (08:35)
[2020-07-04] MEDS: Enoxaparin Sodium 40 MG/0.4 ML SYRINGE SC SCH (08:44)
[2020-07-04] MEDS: Amlodipine 10 MG TAB PO SCH ×2 (08:45→10:20)
[2020-07-04] MEDS: Ferrous Sulfate 325 MG TAB PO SCH ×2 (08:45→10:19)
[2020-07-04] MEDS: Dexamethasone 4 MG TAB PO SCH ×2 (08:45→10:19)
[2020-07-04] MEDS: Cholecalciferol 1,000 UNITS (25 MCG) TAB PO SCH ×2 (08:45→10:21)
[2020-07-04] MEDS: Ascorbic Acid 500 mg Chewable Tablet PO SCH ×2 (08:45→10:20)
[2020-07-04] MEDS: Zinc Sulfate 220 MG CAP PO SCH ×2 (08:45→10:24)
[2020-07-04] MEDS: Pantoprazole 40 MG VIAL IVP SCH (08:46)
[2020-07-04] MEDS: Nystatin 500,000 UNITS/5 ML UDCUP SSW SCH ×5 (08:47→21:15)
--- NOTE | 2020-07-04 10:52 | PDOC.HOSPP ---
- Subjective Encounter Date: 07/04/20 Encounter Time: 08:20 Subjective: Patient seen and examined bedside today, patient has unpredictable oral intake, because of that patient is getting on and off hypoglycemia and subsequent hyperglycemia, - Objective Vital Signs & Weight: Vital Signs (12 hours) Temp Pulse Resp BP Pulse Ox 07/04/20 08:55 97.7 F 62 17 151/60 H 97 07/04/20 03:13 96.7 F L 60 17 129/63 99 07/03/20 23:55 21 H 98 Weight Admit Weight 146 lb 4.8 oz Weight 148 lb 1.6 oz I&O: 07/03/20 07/04/20 07/05/20 06:59 06:59 06:59 Intake Total 2876 1030 Output Total 1150 1550 Balance 1726 -520 Result Diagrams: 07/02/20 04:27 07/02/20 17:12 Additional Labs: Accuchecks 07/04/20 07/03/20 07/03/20 05:50 23:33 22:14 POC Glucose 69 L 95 104 H 07/03/20 07/03/20 07/02/20 18:10 14:05 06:36 POC Glucose 84 113 H 56 L* 06/29/20 18:45 POC Glucose 536 H* EKG Reviewed by me: Yes Hospitalist ROS - Review of Systems ROS unobtainable: due to mental status - Medication Medications: Active Medications Generic Name Dose Route Start Last Admin Trade Name Freq PRN Reason Stop Dose Admin Amlodipine Besylate 10 mg 06/22/20 09:00 07/04/20 10:20 Amlodipine 10 Mg Tab PO Not Given DAILY MARY KATE Ascorbic Acid 1,000 mg 06/22/20 09:00 07/04/20 10:20 Ascorbic Acid 500 Mg Chewable Tablet PO Not Given DAILY MARY KATE Cholecalciferol 2,000 units 06/22/20 09:00 07/04/20 10:21 Cholecalciferol 1,000 Units (25 Mcg) Tab PO Not Given DAILY MARY KATE Dexamethasone 6 mg 07/03/20 08:00 07/04/20 10:19 Dexamethasone 4 Mg Tab PO Not Given QAM-WM MARY KATE Dextrose/Water 25 gm 06/20/20 15:36 07/03/20 13:03 Dextrose 50% Abboject 50 Ml Syringe SLOW IVP 25 gm PRN PRN Administration Hypoglycemia Donepezil HCl 5 mg 06/21/20 21:00 07/03/20 22:03 Donepezil Hcl 5 Mg Tab PO Not Given HS MARY KATE Enoxaparin Sodium 40 mg 06/20/20 21:00 07/04/20 08:44 Enoxaparin Sodium 40 Mg/0.4 Ml Syringe SC 40 mg 0900,2100 MARY KATE Administration Ferrous Sulfate 325 mg 06/22/20 08:00 07/04/20 10:19 Ferrous Sulfate 325 Mg Tab PO Not Given QAM-WM MARY KATE Insulin Glargine 5 units/ 0.05 mls @ 0 mls/hr 07/02/20 21:00 07/03/20 22:42 Miscellaneous Medication SC Not Given HS MARY KATE Insulin Glargine 5 units/ 0.05 mls @ 0 mls/hr 07/03/20 09:00 07/04/20 08:35 Miscellaneous Medication SC Not Given QAM MARY KATE Dextrose/Water 1,000 mls @ 50 mls/hr 07/03/20 15:15 07/04/20 03:20 D5w IV 1,000 mls .Q20H MARY KATE Administration Insulin Human Lispro 0 units 06/25/20 20:17 07/02/20 20:53 Humalog 300 Units/3 Ml Vial SC 4 unit .BEDTIME SLIDING SC PRN Administration Bedtime Correctional Scale Insulin Human Lispro 0 units 07/01/20 07:59 07/03/20 05:29 Humalog 300 Units/3 Ml Vial SC 6 unit .AGGRESSIVE SLIDING PRN Administration Aggressive Correctional Scale Labetalol HCl 10 mg 06/24/20 08:31 06/27/20 05:53 Labetalol Hcl 100 Mg/20 Ml Vial SLOW IVP 10 mg Q4H PRN Administration SBP Greater Than 170 Nystatin 500,000 units 07/01/20 17:00 07/04/20 10:24 Nystatin 500,000 Units/5 Ml Udcup SSW Not Given QID MARY KATE Pantoprazole Sodium 40 mg 07/01/20 21:00 07/04/20 08:46 Pantoprazole 40 Mg Vial IVP 40 mg Q12HR MARY KATE Administration Sodium Chloride 10 ml 06/20/20 21:00 07/04/20 08:47 Flush - Normal Saline 10 Ml Syringe IVF 10 ml Q12HR MARY KATE Administration Sodium Chloride 10 ml 06/20/20 10:30 07/02/20 06:39 Flush - Normal Saline 10 Ml Syringe IVF 10 ml PRN PRN Administration Saline Flush Zinc Sulfate 220 mg 06/22/20 09:00 07/04/20 10:24 Zinc Sulfate 220 Mg Cap PO Not Given DAILY MARY KATE - Exam General Appearance: NAD, awake alert Eye: PERRL, anicteric sclera ENT: normocephalic atraumatic, no oropharyngeal lesions Neck: supple, symmetric, no JVD Heart: RRR, no murmur, no gallops, no rubs Respiratory: no wheezes, no rales, no ronchi Gastrointestinal: soft, non-tender, non-distended, normal bowel sounds Extremities: no cyanosis, no clubbing Skin: normal turgor, no lesions Neurological: no focal deficits Musculoskeletal: normal tone, normal strength Psychiatric: normal affect, normal behavior Hosp A/P (1) Acute respiratory failure with hypoxia Code(s): J96.01 - ACUTE RESPIRATORY FAILURE WITH HYPOXIA Status: Acute (2) Pneumonia due to COVID-19 virus Code(s): U07.1 - COVID-19; J12.89 - OTHER VIRAL PNEUMONIA Status: Acute (3) Sepsis due to COVID-19 Code(s): U07.1 - COVID-19; A41.89 - OTHER SPECIFIED SEPSIS Status: Acute (4) UTI (urinary tract infection) Status: Acute (5) DM type 2 (diabetes mellitus, type 2) Status: Chronic Qualifiers: Diabetes mellitus oil heaterman insulin use: without usp use Diabetes mellitus complication status: without complication Qualified Code(s): E11.9 - Type 2 diabetes mellitus without complications (6) Dyslipidemia Code(s): E78.5 - HYPERLIPIDEMIA, UNSPECIFIED Status: Chronic (7) Hypertension Code(s): I10 - ESSENTIAL (PRIMARY) HYPERTENSION Status: Chronic (8) Erosive esophagitis Code(s): K22.10 - ULCER OF ESOPHAGUS WITHOUT BLEEDING Status: Chronic (9) Hypokalemia Code(s): E87.6 - HYPOKALEMIA Status: Acute (10) Hypernatremia Code(s): E87.0 - HYPEROSMOLALITY AND HYPERNATREMIA Status: Acute - Plan old records reviewed/req, PT/OT Plan Today we will change Protonix to Pepcid 20 mg twice daily Discontinue IV fluid Discontinue Lantus insulin because of unpredictable oral intake that cues hypoglycemia Insulin only as per sliding scale Finish dexamethasone for total 10 days and then discontinue Discharge planning Discontinue restaurant if not needed today so we can consider discharging next 24 hours Patient is at high risk for recurrent admission Change Lovenox 40 mg subcu daily We will repeat labs tomorrow
[2020-07-04] MEDS: Famotidine 20 MG TAB PO SCH (21:14)
[2020-07-04] MEDS: Donepezil HCl 5 MG TAB PO SCH (21:14)
[2020-07-05 06:01] LABS: Anion Gap 10 mmol/L (10-20); BUN (Urea Nitrogen) 16 mg/dL (9.8-20.1); Calc. Creatinine Clearance 69 mL/min (70-130); Calcium 8.4 mg/dL (7.8-10.44); Carbon Dioxide 27 mmol/L (23-31); Chloride 110 mmol/L (98-107); Estimated GFR-MDRD Greater than 90; Glucose 121 mg/dL (83-110); Potassium 3.2 mmol/L (3.5-5.1); Sodium 144 mmol/L (136-145)
[2020-07-05 06:17] LABS: #Basophils 0.1 thou/uL (0.0-0.2); #Eosinphils 0.1 thou/uL (0.0-0.7); #Lymphocytes 1.4 thou/uL (1.20-3.40); #Monocytes 0.4 thou/uL (0.11-0.59); #Neutrophils 6.5 thou/uL (1.40-6.50); %Basophils 0.6 % (0.0-1.0); %Eosinophils 1.4 % (0.0-10.0); %Lymphocytes 16.2 % (21.0-51.0); %Neutrophils 76.7 % (42.0-75.0); Hemoglobin 12.7 g/dL (12.0-16.0); Mean Corpuscular HGB CONC 32.9 g/dL (32.0-36.0); Mean Corpuscular Hemoglobin 33.1 pg (27.0-31.0); Platelet Count 165 thou/uL (130-400); RBC Distribution Width 14.1 % (11.5-14.5); Red Blood Cell (RBC) Count 3.84 mill/uL (4.20-5.40); White Blood Cell (WBC) Count 8.5 thou/uL (4.8-10.8)
[2020-07-05] MEDS ORDERED: Enoxaparin Sodium 40 MG/0.4 ML SYRINGE SC SCH (09:00)
[2020-07-05] MEDS ORDERED: Electrolyte Replacement Protoc 1 EACH EACH FS SCH (11:15)
[2020-07-05] MEDS ORDERED: Potassium Chloride 20 MEQ TAB PO SCH (11:15)
[2020-07-05 11:19] VITALS: BMI 25.4
[2020-07-05 12:14] VITALS: BP 145/67; TEMP 97.7
[2020-07-05] MEDS: Dexamethasone 4 MG TAB PO SCH (13:22)
[2020-07-05] MEDS: Ascorbic Acid 500 mg Chewable Tablet PO SCH (13:22)
[2020-07-05] MEDS: Ferrous Sulfate 325 MG TAB PO SCH (13:22)
[2020-07-05] MEDS: Cholecalciferol 1,000 UNITS (25 MCG) TAB PO SCH (13:22)
[2020-07-05] MEDS: Amlodipine 10 MG TAB PO SCH (13:22)
[2020-07-05] MEDS: Famotidine 20 MG TAB PO SCH (13:23)
[2020-07-05] MEDS: Nystatin 500,000 UNITS/5 ML UDCUP SSW SCH (13:23)
[2020-07-05] MEDS: Zinc Sulfate 220 MG CAP PO SCH (13:23)
[2020-07-05] MEDS ORDERED: Potassium Chloride 10 MEQ in Premix Bag 1 BAG IVPB SCH (13:45)
--- NOTE | 2020-07-06 04:24 | DIS ---
DATE OF ADMISSION: 06/20/2020 DATE OF DISCHARGE: 07/05/2020 DISCHARGE DIAGNOSES: As of the followin. Acute hypoxic respiratory failure. 2. COVID pneumonia. 3. Sepsis due to COVID. 4. Urinary tract infection, resolved. 5. Diabetes. 6. Dyslipidemia. 7. Protein-calorie malnutrition, moderate possibly. 8. Hypertension. HOSPITAL COURSE: Patient is a very pleasant 89-year-old female who initially presented to the hospital on 06/20 with complaints of change in mental status. She had a diagnosis of COVID about 10 days prior to coming into the hospital. At this time, she was noted to have worsening elevated renal function and at this time, Nephrology was consulted. Patient initially was tachycardic and hypotensive. She was started on broad-spectrum antibiotics. She was noted to have a urinary tract infection, which indicated enterococcus and Klebsiella pneumoniae. She was treated with 9 to 10 days of meropenem. Patient also was swabbed for influenza and her influenza was negative. She continued to progress slowly to the hospital stay. On discharge, she was on 1 L of nasal cannula of 96%. She also completed a course of her steroids. The patient at baseline after talking to the family is a picky eater. However, she has been drinking supplements. She did have some change in mental status while she was in the hospital, which has resolved. She does follow commands. I did speak with her daughter and updated her daughter Destiny Guo at [phone] that I will be discharging the patient to the assisted. Patient's daughter had other questions in regard to her thyroid issues. I did ask the family to follow up with her Primary once her current issues have resolved. HOME MEDICATIONS: Will be as of the following. She is going to be on: 1. Tessalon Perles mg q.6 hours as needed. 2. I did add Megace for appetite stimulant 40 mg daily. 3. Zinc 220 mg daily. 4. Tylenol as needed. 5. Norvasc 10 mg daily. 6. Artificial Tears. 7. Aspirin 81 mg daily. 8. Aricept 5 mg at bedtime. 9. Iron 325 daily. 10. Protonix 40 mg daily. 11. MiraLAX 17 g daily p.r.n. PHYSICAL EXAMINATION: VITAL SIGNS: On discharge as of the following; temperature 97.7, 71, 20, 96% on 1 L, and 145/67. GENERAL: She is awake, alert, follows commands. CV: S1, S2 present. No murmurs, rubs, or gallops. ABDOMEN: Soft, nontender. Bowel sounds are present x2. LUNGS: Clear to auscultation. No rhonchi or wheezes noted. EXTREMITY: Mild 1+ lower extremity pitting edema. NEUROLOGIC: She is very pleasant, follows commands. DISPOSITION: She will be discharged back to her assisted. Job ID: [id number]
== END 2020-07-05 18:00 | DRG 871 ==
LOC: ERS 08:22 → ERHOLD 10:23 → 2SW 14:36
PROVIDERS: ADMIT Student in an Organized Health Care Education/Training Program; ATTEND Internal Medicine
PROC: 8E0ZXY6 Isolation (ICD-10-PCS; principal; 2020-06-20)
PROC: 3E0436Z Introduction of Nutritional Substance into Central Vein, Percutaneous Approach (ICD-10-PCS; 2020-06-26)
PROC: 02H633Z Insertion of Infusion Device into Right Atrium, Percutaneous Approach (ICD-10-PCS; 2020-06-26)
PROC: B548ZZA Ultrasonography of Superior Vena Cava, Guidance (ICD-10-PCS; 2020-06-26)
DX: A41.89 Other specified sepsis (principal); U07.1 COVID-19; J12.89 Other viral pneumonia; J96.01 Acute respiratory failure with hypoxia; E44.0 Moderate protein-calorie malnutrition; N39.0 Urinary tract infection, site not specified; E87.0 Hyperosmolality and hypernatremia; G93.49 Other encephalopathy; E87.2 Acidosis; K22.10 Ulcer of esophagus without bleeding; N17.9 Acute kidney failure, unspecified; E78.5 Hyperlipidemia, unspecified; I12.9 Hypertensive chronic kidney disease with stage 1 through stage 4 chronic kidney disease, or unspecified chronic kidney disease; E11.22 Type 2 diabetes mellitus with diabetic chronic kidney disease; B95.2 Enterococcus as the cause of diseases classified elsewhere; B96.1 Klebsiella pneumoniae [K. pneumoniae] as the cause of diseases classified elsewhere; N18.30 Chronic kidney disease, stage 3 unspecified; E78.00 Pure hypercholesterolemia, unspecified; K21.9 Gastro-esophageal reflux disease without esophagitis; G30.9 Alzheimer's disease, unspecified; F41.9 Anxiety disorder, unspecified; E83.39 Other disorders of phosphorus metabolism; E11.65 Type 2 diabetes mellitus with hyperglycemia; E87.6 Hypokalemia; E11.649 Type 2 diabetes mellitus with hypoglycemia without coma; Z68.24 Body mass index [BMI] 24.0-24.9, adult; Z78.1 Physical restraint status; Z90.49 Acquired absence of other specified parts of digestive tract; Z88.5 Allergy status to narcotic agent; Z88.2 Allergy status to sulfonamides; Z88.8 Allergy status to other drugs, medicaments and biological substances; Z91.041 Radiographic dye allergy status; Z79.899 Other long term (current) drug therapy; Z79.4 Long term (current) use of insulin; F02.80 Dementia in other diseases classified elsewhere, unspecified severity, without behavioral disturbance, psychotic disturbance, mood disturbance, and anxiety; E86.0 Dehydration
CPT/HCPCS: 36415; 36416; 36569; 36600; 71045; 80048; 80053; 80061; 81003; 81015; 82550; 82553; 82728; 82805; 83605; 83690; 83735; 83880; 84100; 84134; 84484; 85025; 85379; 85610; 85730; 86140; 87040; 87077; 87086; 87186; 87804; 93005; 96365; 96367; 96372; 96375; A4217; C1751; C9113; J0692; J1100; J1644; J1650; J1815; J2185; J3370; J3480; J7050; J7120; J8540; S0028